=== PATIENT | female | born 1945 | race Caucasian/White ===

== ENCOUNTER → 2017-01-02 | Outpatient (CLI) | payer OTHER ==
--- NOTE | 2017-01-02 14:34 | MAMMOGRAPHY REPORT ---
BILATERAL DIGITAL SCREENING MAMMOGRAM WITH CAD: 01/02/2017 CLINICAL HISTORY: Routine screening. Patient has no complaints. TECHNIQUE: Current study was also evaluated with a Computer Aided Detection (CAD) system. Bilateral CC and MLO views were obtained. COMPARISON: Comparison is made to exams dated: 12/04/2015 mammogram, 11/23/2014 mammogram, 10/13/2013 ma mmogram, 07/27/2012 mammogram, 07/16/2010 mammogram - [facility], and 08/27/2007. BREAST COMPOSITION: The tissue of both breasts is heterogeneously dense, which may obscure small mas ses. FINDINGS: No suspicious masses, calcifications, or areas of architectural distortion are noted in ei ther breast. There has been no significant interval change compared to prior exams. IMPRESSION: ACR BI-RADS CATEGORY 1: NEGATIVE There is no mammographic evidence of malignancy. A 1 year screening mammogram is recommended. The pa tient will receive written notification of the results. Approximately 10% of breast cancers are not detected with mammography. A negative mammographic report should not delay biopsy if a clinically suggestive mass is present. Michelle Escobedo M.D. /:01/02/2017 07:47:27 Printed Circuit Photographer: Ana VINCENT(Samantha)(Sindi), [facility] letter sent: Normal 1/2 BI-RADS Code: ACR BI-RADS Category 1: Negative
== END | disposition home or self-care (01) ==
LOC: C.MAMM 07:26
PROVIDERS: ATTEND Family Medicine
DX: Z12.31 Encounter for screening mammogram for malignant neoplasm of breast (principal)

== ENCOUNTER 2024-05-02 20:18 | Inpatient (IN) ==
--- OUTSIDE RECORDS SUMMARY | 2024-05-02 20:21 | External Medical Summary | Summary of Care ---
Author Name Unknown Organization [facility] Address [address] [place] [address] Phone [phone] Care Team Providers Care Shank Breaker Name Role Phone Sander Smith DO Primary Care Provider Encounter Details Date Type Department Care Team (Late st Contact Info) Description 03/31/2024 Population Health External Data Unspecified Department Allergies Active Allergy Reactions Criticality Noted Date Comments Cat Dander 04/30/2017 No Known Drug Allergy 09/23/2001 documented as of this encounter (statuses as of 03/31/2024) Medications loratadine (CLARITIN) 10 MG TabletIndicatio ns:Other seasonal allergic rhinitis Take 1 Tablet by mouth in the morning. 30 Tab 5 5 Active Levothyroxine Sodium 100 MCG Oral Tablet (Levoxyl) Take 1 Tablet by mouth in the morning. (at least 30 min prior to breakfast or other meds). 90 Tablet 3 4 Active Warfarin Sodium 4 MG Oral Tablet TAKE 1 OR 2 TABLETS BY MOUTH DAILY OR DIRECTED BY COUMADIN CLINIC 180 Tablet 1 4 Active documented as of this encounter (statuses as of 03/31/2024) Active Problems Problem Noted Date Diagnosed Date Warfarin anticoagulation 10/24/2014 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 d 10/24/2014 Other seasonal allergic rhinitis 10/24/2014 History of CVA (cerebrovascular accident) 2014 Mural thrombus of heart without LA 02/18/2012 Anticoagulation management encounter 09/23/2001 Allergic rhinitis 02/02/2001 Aphasia, post-stroke 01/05/2001 documented as of this encounter (statuses as of 03/31/2024) Resolved Problems Problem Noted Date Diagnosed Date Resolved Date HTN, goal below 140/90 09/15/202309/14 Old LA (myocardial infarction) 08/29/2020 08/29/2020 Encounter for examination fo r normal comparison and control in clinical research program 06/09/2018 10/11/2019 Overview (06/26/2020): DO NOT DELETE [employer] DETECT Study: Project # [id number], Associate Dentist: Espinoza Villatoro, PhD. SUMMARY: Goal: Establish test characteristics (sensitivity, specificity, PPV, NPV) of a circulating tumor DNA (ctDNA)-based test for cancer. Hypothesis: Circulating tumor DNA (ctDNA) and elevated protein biomarkers (together, the marker panel) can be detected in asymptomatic individuals with early cancer. Specific Aim 1: Determine the prevalence of a positive marker panel test in a prospective clinical cohort of 10,000 asymptomatic women ages 65 to 75 years. Specific Aim 2: Determine the sensitivity, specificity, positive predictive value (PPV) and negative predictive value (NPV) of a marker panel test to identify histologically proven cancers that develop within 5-years of the marker panel evaluation. CONTACTS: During normal business hours, contact study staff at ; after hours Associate Dentist via the [facility] paper products machine operator . Please contact study team before resolving/deleting from patients problem list. Study phone number: [phone]. Diagnosis changed due to Research Module. Go to Snapshot for study details. Encounter for examination fo r normal comparison and control in clinical research program 06/09/2018 11/08/2021 Overview (06/26/2020): DO NOT DELETE - [employer] DETECT Study: Project # [id number], Associate Dentist: Kosta Valdovinos, MS, MPH. SUMMARY: Goal: Establish test characteristics (sensitivity, specificity, PPV, NPV) of a circulating tumor DNA (ctDNA)-based test for cancer. - Hypothesis: Circulating tumor DNA (ctDNA) and elevated protein biomarkers (together, the marker panel) can be detected in asymptomatic individuals with early cancer. - Specific Aim 1: Determine the prevalence of a positive marker panel test in a prospective clinical cohort of 10,000 asymptomatic women ages 65 to 75 years. - Specific Aim 2: Determine the sensitivity, specificity, positive predictive value (PPV) and negative predictive value (NPV) of a marker panel test to identify histologically proven cancers that develop within 5-years of the marker panel evaluation. - CONTACTS: During normal business hours, contact study staff at ; after hours Associate Dentist via the [facility] paper products machine operator . - Please contact study team before resolving/deleting from patients problem list. Study phone number: [phone]. Diagnosis changed due to Research Module. Go to Snapshot for study details. 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 01/05/2001 10/24/2014 Overview (12/09/2016): ICD-10 update of inactive term CVA 10/24/2014 HYPOTHYROIDISM NOS 5 documented as of this encounter (statuses as of 03/31/2024) Immunizations Name Administration Dates Next Due COVID-19 mRNA, LNP-s, No Pre serve, 2-Dose Series (Moderna) 01/26/2021,06/12/2020,05/15/2020 COVID-19, mRNA, LNP-s, PF, B ooster, 100mcg/0.5mg (Moderna) 10/04/2021 Covid-19, Mrna, Lnp-s, Pf, B ivalent, 30 Mcg, IM, 12 yrs and above (Pfizer) 12/17/2021 Diptheria/Tetanus (Adult) 03/10/2004 PPD 12/11/2022 Pneumococcal Conjugate Vacc, 13 Valent (Prevnar) 10/24/2014 Pneumococcal Conjugate Vacci ne, 20-valent ([id number]) 09/13/2022 Season Influenza, Quad, PF, Adjuvanted, 65+ Yrs, IM (FLUAD) 01/11/2021,01/17/2020 Seasonal Influenza Vac., MDV , IM, 0.5 mL (Fluzone) 02/07/2014,12/31/2012,12/19/2011,2008 Seasonal Influenza, High Dos e, Trivalent, PF, IM (Fluzone HD) 01/20/2024 Seasonal Influenza, PF, 6 M & above, IM , (FluLaval or Fluzone) 02/23/2018,02/06/2017 Seasonal Influenza, Quadriva lent Hd (Fluzone Hd) 01/19/2023,12/17/2021 Seasonal Influenza, Quadriva lent, No Preserve, IM 01/25/2016,01/23/2015 TDAP (age 10 and older)(Boostrix) 09/15/2023 TDAP, Age 7 and older, IM (Adacel) 09/20/2010 Zoster Vaccine Recombinant (Shingrix) 12/26/2020 ,10/11/2020 documented as of this encounter Social History Tobacco Use Types Packs/Day Years Used Date Smoking Tobacco: Never Smokeless Tobacco: Never Alcohol Use Standard Drinks/Week Comments No 0 (1 standard drink = 0.6 oz pur e alcohol) rare PHQ-2 Answer Date Recorded PHQ-2 Score 0 04/06/2019 Hunger Vital Sign Answer Date Recorded Within the past 12 months, y ou worried that your food would run out before you got the money to buy more. Never true 09/12/19 22 Within the past 12 months, t he food you bought just didn't last and you didn't have money to get more. 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 on file Not on file Not on f ile documented as of this encounter Plan of Treatment Upcoming Encounters Date Type Department Care Team (Late st Contact Info) Description 04/19/2024 11:10 AM EST Laboratory Laboratory [facility] [place] [address] [place] [address] [facility] [address] [facility] [place] [address] 04/20/2024 6:15 AM EST Anticoagulation Centralized Clinical Pharmacy Services, Denise Palomarse [address] [place] [address] [place] [address] [facility], [address] [place] [address] 09/15/2024 1:00 PM EDT Office Visit Family Practice [facility] [place] [address] [place] [address] Sander Smith, [address] [facility] [place] [address] Health Maintenance Due Date Last Done Comments Adult Wellness Visit 2012 DXA Scan 04/24/2018 04/24/2016, 07/09, 08/04/2012 Depression Screening 04/06/2020 04/06/2019 COVID-19 Vaccine ( season) 2023 12/17/2021, 10/04/2021, 01/26/2021, Additional history exists TSH 02/22/2025 02/23/2024, 12/09, 12/01/2023, Additional history exists DTap/Tdap Vaccines (3 - Td or Tdap) 09/14/2033 09/15/2023, 09/20/2010, 03/10/2004 Zoster Vaccines Completed 12/26/2020, 10/11/2020 Cologuard Discontinued 10/02/2021, 09/07, 09/25/2021, Additional history exists Colorectal Cancer Screening Discontinued Pneumococcal Vaccine: 50+ Years Completed 09/13/2022, 10/24/2014, 02/02/2001 Influenza Vaccine (FLU shot) Completed 01/20/2024, 01/20/2024, 01/19/2023, Additional history exists Colonoscopy Discontinued Fecal Occult Blood Test Discontinued HPV (Gardasil) Vaccine Aged Out No lo nger eligible based on patient's age to complete this topic Hepatitis B Vaccine Aged Out No longe r eligible based on patient's age to complete this topic MENINGOCOCCAL (MENACTRA/MENVEO) Aged Out No longer eligible based on patient's age to complete this topic Sigmoidoscopy Discontinued documented as of this encounter Medical Devices Not on filedocumented as of this encounter Care Teams Shank Breaker Relationship Specialty Start Date End Date Sander Smith DO [address] [place] [address] PCP - General Family Medicine 05/04/18 documented as of this encounter
--- OUTSIDE RECORDS SUMMARY | 2024-05-02 20:21 | External Medical Summary | Summary of Care ---
Author Name Unknown Organization [facility] Address [address] [facility] [place] [address] Phone [phone] Care Team Providers Care Shale Planer Operator Helper Name Role Phone Sander Smith DO Primary Care Provider [phone] Reason for Visit * Reason Comments Dosage Adjustment Via Phone (anticoag Cl inic) Encounter Details Date Type Department Care Team ([facility] st Contact Info) Description 03/23/2024 6:15 AM EST Anticoagulation Centralized Clinical Pharmacy Services, Denise Palomares [address] [place] [address] [place] [address] [facility], [address] [place] [address] History of CVA (cerebrovascular accident)*; Warfarin anticoagulation; Anticoagulation management encounter Allergies Active Allergy Reactions Criticality Noted Date Comments Cat Dander 04/30/2017 No Known Drug Allergy 09/23/2001 documented as of this encounter (statuses as of 03/23/2024) Medications loratadine (CLARITIN) 10 MG TabletIndicatio ns:Other [...] as of this encounter (statuses as of 03/23/2024) Active Problems Problem Noted Date Diagnosed Date Warfarin anticoagulation 10/24/2014 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 d 10/24/2014 Other seasonal allergic rhinitis 10/24/2014 History of CVA (cerebrovascular accident) 2014 Mural thrombus of heart without NV 02/18/2012 Anticoagulation management encounter 09/23/2001 Allergic rhinitis 02/02/2001 Aphasia, post-stroke 01/05/2001 documented as of this encounter (statuses as of 03/23/2024) Resolved Problems Problem Noted Date Diagnosed Date Resolved Date HTN, goal below 140/90 09/15/202309/14 Old NV (myocardial infarction) 08/29/2020 08/29/2020 Encounter for examination fo r normal comparison and control in clinical research program 06/09/2018 10/11/2019 Overview (06/26/2020): DO NOT DELETE [facility] DETECT Study: Project # [id number], Cake Former: Espinoza Villatoro, PhD. SUMMARY: Goal: Establish test [...] contact study staff at ; after hours Cake Former via the [facility] hospital paper roll machine operator . Please contact study team before resolving/deleting from patients problem list. Study phone number: [phone]. Diagnosis changed due to Research Module. Go to Snapshot for study details. Encounter for examination fo r normal comparison and control in clinical research program 06/09/2018 11/08/2021 Overview (06/26/2020): DO NOT DELETE - [employer] DETECT Study: Project # [id number], Cake Former: Kosta Valdovinos, MS, MPH. SUMMARY: Goal: Establish [...] contact study staff at ; after hours Cake Former via the [facility] hospital paper roll machine operator . - Please contact study team before resolving/deleting from patients problem list. Study phone number: [phone]. Diagnosis changed due to Research Module. Go to Snapshot for study details. 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 current use of ant icoagulant therapy 01/05/2001 10/24/2014 Overview (12/09/2016): ICD-10 update of inactive term CVA 10/24/2014 HYPOTHYROIDISM NOS 5 documented as of this encounter (statuses as of 03/23/2024) Immunizations Name Administration Dates Next Due COVID-19 mRNA, LNP-s, No Pre serve, 2-Dose Series (Moderna) 01/26/2021,06/12/2020,05/15/2020 COVID-19, mRNA, LNP-s, PF, B ooster, 100mcg/0.5mg (Moderna) 10/04/2021 Covid-19, Mrna, Lnp-s, Pf, B ivalent, 30 Mcg, IM, 12 yrs and above (Pfizer) 12/17/2021 Diptheria/Tetanus (Adult) 03/10/2004 PPD 12/11/2022 Pneumococcal Conjugate Vacc, 13 Valent (Prevnar) 10/24/2014 Pneumococcal Conjugate Vacci ne, 20-valent ([id number]) 09/13/2022 Season Influenza, Quad, PF, Adjuvanted, 65+ [...] 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 PT/INR results, Coumadin dose instructions, and next PT/INR date communicated as noted by Pharmacist: Yes ROBERTA SMITH CPhT 03/23/2024, 9:42 AM * Debbi Pierre, [facility] - 03/23/2024 9:34 AM EST Images from the original note were not included. Coumadin Clinic (region specific) Objective Current Warfarin Dose As of 03/23/2024 Warfarin maintenance plan: 2 mg (4 mg x 0.5) every Fri; 4 mg (4 mg x 1) all other days INR Result As of 03/23/2024 INR goal: 2.0-3.0 INR used for dosin.7 (03/22/2024) Assessment & Plan Warfarin Plan As of 03/23/2024 Full warfarin instructions: 03/23: 8 mg; Otherwise 2 mg every Fri; 4 mg all other days Next INR check: 04/19/2024 Repeat PT/INR in 4 week(s) Weekly dose: not changed Additional Dosing Information: Description Jami Hartman 4 wk max INR check Tech to contact patient with dose instructions as noted. Debbi Pierre RPh 03/23/2024, 9:34 AM documented in this encounter Plan of Treatment Upcoming Encounters Date Type Department Care Team (Late st Contact Info) Description 09/15/2024 1:00 PM EDT Office Visit Family Practice [place] [place] [address] [facility] [place] [address] Sander Smith DO [address] [place] [address] Health Maintenance Due Date Last Done Comments [...] Not on filedocumented as of this encounter Visit Diagnoses Diagnosis History of CVA (cerebrovascular accident)- Primary Transient ischemic attack (TIA), and cerebral infarction without residual deficits Warfarin anticoagulation Long-term (current) use of anticoagulants Anticoagulation management encounter Encounter for therapeutic drug monitoring documented in this encounter Care Teams Shale Planer Operator Helper Relationship Specialty Start Date End Date Sander Smith DO [address] [place] [address] PCP - General Family Medicine 05/04/18 documented as of this encounter
--- OUTSIDE RECORDS SUMMARY | 2024-05-02 20:21 | External Medical Summary | Summary of Care ---
Author Name Unknown Organization [facility] Address [address] [place] [address] Phone [phone] Care Team Providers Care Postal Inspector Name Role Phone Sander Smith DO Primary Care Provider Reason for Visit * Reason Onset Date Comments Advice 04/27/2024 Encounter Details Date Type Department Care Team (Late st Contact Info) Description 04/27/2024 Telephone Family Practice [facility] [place] [address] [facility] [place] [address] Sander Smith DO [address] [facility] [place] [address] Advice Allergies Active Allergy Reactions Criticality Noted Date Comments Cat Dander 04/30/2017 No Known Drug Allergy 09/23/2001 documented as of this encounter (statuses as of 04/30/2024) Medications loratadine (CLARITIN) 10 MG TabletIndicatio ns:Other [...] as of this encounter (statuses as of 04/30/2024) Active Problems Problem Noted Date Diagnosed Date Warfarin anticoagulation 10/24/2014 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 d 10/24/2014 Other seasonal allergic rhinitis 10/24/2014 History of CVA (cerebrovascular accident) 2014 Mural thrombus of heart without [place] 02/18/2012 Anticoagulation management encounter 09/23/2001 Allergic rhinitis 02/02/2001 Aphasia, post-stroke 01/05/2001 documented as of this encounter (statuses as of 04/30/2024) Resolved Problems Problem Noted Date Diagnosed Date Resolved Date HTN, goal below 140/90 09/15/202309/14 Old AK (myocardial infarction) 08/29/2020 08/29/2020 Encounter for examination fo r normal comparison and control in clinical research program 06/09/2018 10/11/2019 Overview (06/26/2020): DO NOT DELETE [employer] DETECT Study: Project # [id number], Steam Shovel Operating Engineer: Espinoza Villatoro, PhD. SUMMARY: Goal: Establish test [...] contact study staff at ; after hours Steam Shovel Operating Engineer via the [facility] hospital automatic profile sander operator . Please contact study team before resolving/deleting from patients problem list. Study phone number: [phone]. Diagnosis changed due to Research Module. Go to Snapshot for study details. Encounter for examination fo r normal comparison and control in clinical research program 06/09/2018 11/08/2021 Overview (06/26/2020): DO NOT DELETE - [employer] DETECT Study: Project # [id number], Steam Shovel Operating Engineer: Kosta Valdovinos, MS, MPH. SUMMARY: Goal: Establish [...] contact study staff at ; after hours Steam Shovel Operating Engineer via the [facility] hospital automatic profile sander operator . - Please contact study team before resolving/deleting from patients problem list. Study phone number: [phone]. Diagnosis changed due to Research Module. Go to Snapshot for study details. 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 icoagulant therapy 01/05/2001 10/24/2014 Overview (12/09/2016): ICD-10 update of inactive term CVA 10/24/2014 HYPOTHYROIDISM NOS 5 documented as of this encounter (statuses as of 04/30/2024) Immunizations Name Administration Dates Next Due COVID-19 mRNA, LNP-s, No Pre serve, 2-Dose Series (Moderna) 01/26/2021,06/12/2020,05/15/2020 COVID-19, mRNA, LNP-s, PF, B ooster, 100mcg/0.5mg (Moderna) 10/04/2021 Covid-19, Mrna, Lnp-s, Pf, B ivalent, 30 Mcg, IM, 12 yrs and above (Pfizer) 12/17/2021 Diptheria/Tetanus (Adult) 03/10/2004 PPD 12/11/2022 Pneumococcal Conjugate Vacc, 13 Valent (Prevnar) 10/24/2014 Pneumococcal Conjugate Vacci ne, 20-valent ([id number]) 09/13/2022 Season Influenza, Quad, PF, Adjuvanted, 65+ [...] 8:23 AM EDT Sexual Orientation Straight 09/11/2021 8 :23 AM EDT 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 Diarrhea has improved. Has only had one bout of liquid diarrhea today. Has not takenany OTC medications for the diarrhea. Pt states she is drinking fluids and staying hydrated. Not eating much. Reviewed bratty diet with pt and encouraged to continue to stay hydrated. Pt states she is very weak and unsteady on her feet. Took tylenol cold and flu the first week of flu symptoms due to having a fever. Continues to take robitussin for cough. Pt states her eyes are crusty and seeping drainage. Encouraged pt to schedule appointment. Pt states she is unable to leave her home at this time due to the diarrhea. States her son is coming tomorrow and she will decide at that time if she is going to be seen. * Telephone Encounter - Tiara Vargas OSA - 04/27/2024 10:31 AM EST Pt calling in for advice. Pt had the flu for 3 weeks, she now has uncontrollable diarrhea. Pt cannot come in for appointment and wants to know what dr would recommend. documented in this encounter Plan of Treatment Upcoming Encounters Date Type Department Care Team (Late st Contact Info) Description 05/07/2024 6:15 AM EST Anticoagulation Centralized Clinical Pharmacy Services, Denise Palomares [address] [place] [address] [place] [address] C[facility], [facility] [address] [place] [address] 09/15/2024 1:00 PM EDT Office Visit Family Practice [place] [address] [facility] [place] [address] Sander Smith DO [address] [facility] [place] [address] Health Maintenance Due Date Last Done Comments [...] on patient's age to complete this topic Meningitis B Vaccine (Bexsero/Trumemba) Aged Out No longer eligible based on patient's age to complete this topic Sigmoidoscopy Discontinued documented as of this encounter Medical Devices Not on filedocumented as of this encounter Care Teams Postal Inspector Relationship Specialty Start Date End Date Sander Smith DO [address] [place] [address] PCP - General Family Medicine 05/04/18 documented as of this encounter
--- OUTSIDE RECORDS SUMMARY | 2024-05-02 20:22 | External Medical Summary | Summary of Care ---
Author Name Unknown Organization [facility] Address [address] [place] [address] Phone [phone] Care Team Providers Care Bale Piler Name Role Phone Alisson Rivero DO Primary Care Provider [phone] Reason for Visit * Reason Comments eRx-Medication Refill Encounter Details Date Type Department Care Team (Late st Contact Info) Description 12/07/2023 Refill Family Practice [facility] [address] [place] [address] Alisson Rivero DO [address] [place] [address] Allergies Active Allergy Reactions Criticality Noted Date Comments Cat Dander 04/30/2017 No Known Drug Allergy 09/23/2001 documented as of this encounter (statuses as of 12/09/2023) Medications Medication Sig Dispensed Refills Start Date End Date Status loratadine (CLARITIN) 10 MG TabletIndication s:Other seasonal allergic rhinitis Take 1 Tablet by mouth in the morning. 30 Tab 5 10/24/2014 Active Levothyroxine Sodium 88 MCG Oral Tablet (Levoxyl) Take 1 Tablet by mouth in the morning. (at least 30 min prior to breakfast or other meds). 90 Tablet 3 10/08/2023 Active Warfarin Sodium 4 MG Oral Tablet (Coumadin) TAKE 1 OR 2 TABLETS BY MOUTH DAILY OR DIRECTED BY COUMADIN CLINIC 180 Tablet 1 12/09/2023 Active Warfarin Sodium 4 MG Oral Tablet Take 1 to 2 tablets by mouth daily as directed by Coumadin Clinic on phone. 180 Tablet 1 01/10/2023 Discontinued documented as of this encounter (statuses as of 12/09/2023) Active Problems Problem Noted Date Diagnosed Date Warfarin anticoagulation 10/24/2014 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 d 10/24/2014 Other seasonal allergic rhinitis 10/24/2014 History of CVA (cerebrovascular accident) 2014 Mural thrombus of heart without [place] 02/18/2012 Anticoagulation management encounter 09/23/2001 Allergic rhinitis 02/02/2001 Aphasia, post-stroke 01/05/2001 documented as of this encounter (statuses as of 12/09/2023) Resolved Problems Problem Noted Date Diagnosed Date Resolved Date HTN, goal below 140/90 09/15/202309/14 Old [facility] (myocardial infarction) 08/29/2020 08/29/2020 Encounter for examination fo r normal comparison and control in clinical research program 06/09/2018 10/11/2019 Overview: DO NOT DELETE [facility] DETECT Study: Project # [id number], University Registrar: Espinoza Villatoro, PhD. SUMMARY: Goal: Establish test [...] contact study staff at ; after hours University Registrar via the [facility] hospital crowning hammer operator . Please contact study team before resolving/deleting from patients problem list. Study phone number: [phone]. Diagnosis changed due to Research Module. Go to Snapshot for study details. Encounter for examination fo r normal comparison and control in clinical research program 06/09/2018 11/08/2021 Overview: [facility] DELETE [facility] Study: Project # [id number], University Registrar: Kosta Valdovinos, MS, MPH. SUMMARY: Goal: Establish [...] contact study staff at ; after hours University Registrar via the [facility] hospital crowning hammer operator . - Please contact study team before resolving/deleting from patients problem list. Study phone number: [phone]. Diagnosis changed due to Research Module. Go to Snapshot for study details. 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 02/16/2003 10/24/2014 Overview: ICD-10 update of inactive term ABN THYROID FUNCT STUDY 05/05/200105/2001 Asthma, allergic 02/02/2001 10/24/2014 penitentiary current use of ant icoagulant therapy 01/05/2001 10/24/2014 Overview: ICD-10 update of inactive term CVA 10/24/2014 HYPOTHYROIDISM NOS 5 documented as of this encounter (statuses as of 12/09/2023) Immunizations Name Administration Dates Next Due COVID-19 mRNA, LNP-s, No Pre serve, 2-Dose Series (Moderna) 01/26/2021,06/12/2020,05/15/2020 COVID-19, mRNA, LNP-s, PF, B ooster, 100mcg/0.5mg (Moderna) 10/04/2021 Covid-19, Mrna, Lnp-s, Pf, B ivalent, 30 Mcg, IM, 12 yrs and above (Pfizer) 12/17/2021 Diptheria/Tetanus (Adult) 03/10/2004 PPD 12/11/2022 Pneumococcal Conjugate Vacc, 13 Valent (Prevnar) 10/24/2014 Pneumococcal Conjugate Vacci ne, 20-valent ([id number]) 09/13/2022 Season Influenza, Quad, PF, Adjuvanted, 65+ Yrs, IM (FLUAD) 01/11/2021,01/17/2020 Seasonal Influenza, PF, 6 M & above, IM , (FluLaval or Fluzone) 02/23/2018,02/06/2017 Seasonal Influenza, Quadriva lent Hd (Fluzone Hd) 01/19/2023,12/17/2021 Seasonal Influenza, Quadriva lent, No Preserve, IM 01/25/2016,01/23/2015 Seasonal Influenza, Trivalen t, (IIV3), with Preserv, (Fluzone) 02/07/2014,12/31/2012,12/19/2011,2008 TDAP (age 10 and older)(Boostrix) 09/15/2023 TDAP, [...] money to get more. Never true 09/11/2021 Sex and Gender Information Value Date Recorded Sex Assigned at Female 09/11/2021 8:23 AM EDT Gender Identity Female 09/11/2021 8:23 AM EDT Sexual Orientation Straight 09/11/2021 8: 23 AM EDT Job Start Date Occupation Industry Not on file Not on file Not on file documented as of this encounter Miscellaneous Notes * Telephone Encounter - Ailyn Judge luis - 12/09/2023 10:00 AM EDTSigned Prescriptions: Disp Refills Warfarin Sodium 4 MG Oral Tablet (Coumadin)180 Ta*1 Sig: TAKE 1 OR 2 TABLETS BY MOUTH DAILY OR DIRECTED BY COUMADIN CLINICAuthorizing Provider: ALISSON RIVERO User: AILYN JUDGE documented in this encounter Plan of Treatment Upcoming Encounters Date Type Department Care Team (Late st Contact Info) Description 12/29/2023 11:10 AM EDT Laboratory Laboratory [place] [address] [facility] [place] [id number] Aaron Hartman [place] [address] [place] [address] 12/30/2023 6:15 AM EDT Anticoagulation [facility], Denise Plaomares [address] [place] [address] [place] [address] [place] [address] 09/15/2024 1:00 PM EDT Office Visit Family Practice [place] [address] [place] [address] Alisson Rivero DO [address] [place] [address] Health Maintenance Due Date Last Done Comments Adult Wellness Visit 2012 DXA Scan 04/24/2018 04/24/2016, 07/09, 08/04/2012 Depression Screening 04/06/2020 04/06/2019 COVID-19 Vaccine ( season) 2023 12/17/2021, 10/04/2021, 01/26/2021, Additional history exists Influenza Vaccine (FLU shot) (#1) 2023 01/19/2023, 12/17/2021, 01/11/2021, Additional history exists TSH 11/30/2024 12/01/2023, 09/08, 11/18/2022, Additional history exists DTap/Tdap Vaccines (3 - Td or Tdap) 09/14/2033 09/15/2023, 09/20/2010, 03/10/2004 Zoster Vaccines Completed 12/26/2020, 10/11/2020 Cologuard Discontinued 10/02/2021, 09/07, 09/25/2021, Additional history exists Colorectal Cancer Screening Discontinued Pneumococcal Vaccine: 65+ Years Completed 09/13/2022, 10/24/2014, 02/02/2001 Colonoscopy Discontinued Fecal Occult Blood Test Discontinued [...] filedocumented as of this encounter Care Teams Bale Piler Relationship Specialty Start Date End Date Alisson Rivero DO [address] [place] [address] PCP - General Family Medicine 05/04/18 documented as of this encounter
--- OUTSIDE RECORDS SUMMARY | 2024-05-02 20:22 | External Medical Summary | Summary of Care ---
Author Name Unknown Organization [facility] Address [address] [place] [address] Phone [phone] Care Team Providers Care Landscape Supervisor Name Role Phone Sander Smith DO Primary Care Provider Reason for Visit * Reason Onset Date Comments Medication Administration 01/20/2024 Flu an d/or Pneumo Inj Encounter Details Date Type Department Care Team (Late st Contact Info) Description 01/20/2024 11:00 AM EST Immunization [facility] [address] [place] [address] Sp, [facility] [address] [place] [address] Need for prophylactic vaccination and inoculation against influenza* Allergies Active Allergy Reactions Criticality Noted Date Comments Cat Dander 04/30/2017 No Known Drug Allergy 09/23/2001 documented as of this encounter (statuses as of 01/20/2024) Medications loratadine (CLARITIN) 10 MG TabletIndicatio ns:Other seasonal allergic rhinitis Take 1 Tablet by mouth in the morning. 30 Tab 5 5 Active Warfarin Sodium 4 MG Oral Tablet (Coumadin) TAKE 1 OR 2 TABLETS BY MOUTH DAILY OR DIRECTED BY COUMADIN CLINIC 180 Tablet 1 4 Active Levothyroxine Sodium 100 MCG Oral Tablet (Levoxyl) Take 1 Tablet by mouth in the morning. (at least 30 min prior to breakfast or other meds). 90 Tablet 3 4 Active documented as of this encounter (statuses as of 01/20/2024) Active Problems Problem Noted Date Diagnosed Date Warfarin anticoagulation 10/24/2014 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 d 10/24/2014 Other seasonal allergic rhinitis 10/24/2014 History of CVA (cerebrovascular accident) 2014 Mural thrombus of heart without [place] 02/18/2012 Anticoagulation management encounter 09/23/2001 Allergic rhinitis 02/02/2001 Aphasia, post-stroke 01/05/2001 documented as of this encounter (statuses as of 01/20/2024) Resolved Problems Problem Noted Date Diagnosed Date Resolved Date HTN, goal below 140/90 09/15/202309/14 Old [place] (myocardial infarction) 08/29/2020 08/29/2020 Encounter for examination fo r normal comparison and control in clinical research program 06/09/2018 10/11/2019 Overview (06/26/2020): DO NOT DELETE [facility] DETECT Study: Project # [id number], Language Path: Espinoza Villatoro, PhD. SUMMARY: Goal: Establish test [...] contact study staff at ; after hours Language Path via the [facility] hospital change number operator . Please contact study team before resolving/deleting from patients problem list. Study phone number: [phone]. Diagnosis changed due to Research Module. Go to Snapshot for study details. Encounter for examination fo r normal comparison and control in clinical research program 06/09/2018 11/08/2021 Overview (06/26/2020): DO NOT DELETE - [facility] DETECT Study: Project # [id number], Language Path: Kosta Valdovinos, MS, MPH. SUMMARY: Goal: Establish [...] contact study staff at ; after hours Language Path via the [facility] hospital change number operator . - Please contact study team before resolving/deleting from patients problem list. Study phone number: [phone]. Diagnosis changed due to Research Module. Go to Snapshot for study details. 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 icoagulant therapy 02/16/2003 10/24/2014 Overview (12/09/2016): ICD-10 update of inactive term ABN THYROID FUNCT STUDY 05/05/200105/2001 Asthma, allergic 02/02/2001 10/24/2014 [facility] current use of ant icoagulant therapy 01/05/2001 10/24/2014 Overview (12/09/2016): ICD-10 update of inactive term CVA 10/24/2014 HYPOTHYROIDISM NOS 5 documented as of this encounter (statuses as of 01/20/2024) Immunizations Name Administration Dates Next Due COVID-19 mRNA, LNP-s, No Pre serve, 2-Dose Series (Moderna) 01/26/2021,06/12/2020,05/15/2020 COVID-19, mRNA, LNP-s, PF, B ooster, 100mcg/0.5mg (Moderna) 10/04/2021 Covid-19, Mrna, Lnp-s, Pf, B ivalent, 30 Mcg, IM, 12 yrs and above (Pfizer) 12/17/2021 Diptheria/Tetanus (Adult) 03/10/2004 PPD 12/11/2022 Pneumococcal Conjugate Vacc, 13 Valent (Prevnar) 10/24/2014 Pneumococcal Conjugate Vacci ne, 20-valent ([id number]) 09/13/2022 Season Influenza, Quad, PF, Adjuvanted, 65+ [...] Start Date 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 Not on file Not on file Not on f ile documented as of this encounter Plan of Treatment Upcoming Encounters Date Type Department Care Team (Late st Contact Info) Description 01/26/2024 11:10 AM EST Laboratory Laboratory [facility] [place] [address] [place] [phone] [facility] [address] [facility] [place] [address] 01/27/2024 6:15 AM EST Anticoagulation [facility], Denise Palomares [address] [place] [address] [place] [address] [facility], [address] [place] [address] 09/15/2024 1:00 PM EDT Office Visit Family Practice [facility] [place] [address] [place] [address] Sander Smith, DO [address] [facility] [place] [address] Health Maintenance Due Date Last Done Comments Adult Wellness Visit 2012 DXA Scan 04/24/2018 04/24/2016, 07/09, 08/04/2012 Depression Screening 04/06/2020 04/06/2019 COVID-19 Vaccine ( season) 2023 12/17/2021, 10/04/2021, 01/26/2021, Additional history exists Influenza Vaccine (FLU shot) (#1) 2023 01/20/2024, 01/19/2023, 12/17/2021, Additional history exists TSH 12/28/2024 12/29/2023, 11/09, 10/06/2023, Additional history exists DTap/Tdap Vaccines (3 - [...] as of this encounter Visit Diagnoses Diagnosis Need for prophylactic vaccination and inoculation against influenza- Primary documented in this encounter Care Teams Landscape Supervisor Relationship Specialty Start Date End Date Sander Smith DO [address] [place] [address] PCP - General Family Medicine 05/04/18 documented as of this encounter
--- OUTSIDE RECORDS SUMMARY | 2024-05-02 20:22 | External Medical Summary | Summary of Care ---
Author Name Unknown Organization [facility] Address [address] [place] [address] Phone [phone] Care Team Providers Care Drop Clipper Name Role Phone Sander Smith DO Primary Care Provider [phone] Reason for Visit * Reason Onset Date Comments Health Maintenance 11/19/2023 Encounter Details Date Type Department Care Team (Late st Contact Info) Description 11/19/2023 Telephone Family Practice [facility] [place] [address] [facility] [place] [address] Sander Smith DO [address] [place] [address] Health Maintenance Allergies Active Allergy Reactions Criticality Noted Date Comments Cat Dander 04/30/2017 No Known Drug Allergy 09/23/2001 documented as of this encounter (statuses as of 11/19/2023) Medications Medication Sig Dispensed Refills Start Date End Date Status loratadine (CLARITIN) 10 MG TabletIndications:O ther seasonal allergic rhinitis Take 1 Tablet by mouth in the morning. 30 Tab 5 10/24/2014 Active Warfarin Sodium 4 MG Oral Tablet Take 1 to 2 tablets by mouth daily as directed by Coumadin Clinic on phone. 180 Tablet 1 01/10/2023 Active Levothyroxine Sodium 88 MCG Oral Tablet (Levoxyl) Take 1 Tablet by mouth in the morning. (at least 30 min prior to breakfast or other meds). 90 Tablet 3 10/08/2023 Active documented as of this encounter (statuses as of 11/19/2023) Active Problems Problem Noted Date Diagnosed Date Warfarin anticoagulation 10/24/2014 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 d 10/24/2014 Other seasonal allergic rhinitis 10/24/2014 History of CVA (cerebrovascular accident) 2014 Mural thrombus of heart without [place] 02/18/2012 Anticoagulation management encounter 09/23/2001 Allergic rhinitis 02/02/2001 Aphasia, post-stroke 01/05/2001 documented as of this encounter (statuses as of 11/19/2023) Resolved Problems Problem Noted Date Diagnosed Date Resolved Date HTN, goal below 140/90 09/15/202309/14 Old [place] (myocardial infarction) 08/29/2020 08/29/2020 Encounter for examination fo r normal comparison and control in clinical research program 06/09/2018 10/11/2019 Overview: DO NOT DELETE [facility] DETECT Study: Project # [id number], Wire Stripping Machine Operator: Espinoza Villatoro, PhD. SUMMARY: Goal: Establish test [...] contact study staff at ; after hours Wire Stripping Machine Operator via the [facility] assembly operator . Please contact study team before resolving/deleting from patients problem list. Study phone number: [phone]. Diagnosis changed due to Research Module. Go to Snapshot for study details. Encounter for examination fo r normal comparison and control in clinical research program 06/09/2018 11/08/2021 Overview: [facility] NOT DELETE [facility] DET[facility] Study: Project # [id number], Wire Stripping Machine Operator: Kosta Valdovinos, MS, MPH. SUMMARY: Goal: Establish [...] contact study staff at ; after hours Wire Stripping Machine Operator via the [facility] hospital assembly operator . - Please contact study team before resolving/deleting from patients problem list. Study phone number: [phone]. Diagnosis changed due to Research Module. Go to Snapshot for study details. 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 01/05/2001 10/24/2014 Overview: ICD-10 update of inactive term CVA 10/24/2014 HYPOTHYROIDISM NOS 5 documented as of this encounter (statuses as of 11/19/2023) Immunizations Name Administration Dates Next Due COVID-19 mRNA, LNP-s, No Pre serve, 2-Dose Series (Moderna) 01/26/2021,06/12/2020,05/15/2020 COVID-19, mRNA, LNP-s, PF, B ooster, 100mcg/0.5mg (Moderna) 10/04/2021 Covid-19, Mrna, Lnp-s, Pf, B ivalent, 30 Mcg, IM, 12 yrs and above (Pfizer) 12/17/2021 Diptheria/Tetanus (Adult) 03/10/2004 PPD 12/11/2022 Pneumococcal Conjugate Vacc, 13 Valent (Prevnar) 10/24/2014 Pneumococcal Conjugate Vacci ne, 20-valent ([id number]) 09/13/2022 Season Influenza, Quad, PF, Adjuvanted, 65+ [...] encounter Miscellaneous Notes * Telephone Encounter - Negra Bond LPN - 11/19/2023 8:51 AM EDT Care Gaps Comprehensive Care Outreach Last Office/Telemedicine Visit: 09/15/2023 (in office), Visit date not found (telemedicine) Next Office Visit: 09/15/2024 Hemoglobin AIC Results: No results found for: "HEMOGLOBIN A1C" BP Readings from Last 1 Encounters: 09/15/23 142/78 Reviewed Health Maintenance below: Health Maintenance Topic Date Due Adult Wellness Visit Never done DXA Scan 04/24/2018 Depression Screening 04/06/2020 Influenza Vaccine (FLU shot) (1) 11/09/2023 COVID-19 Vaccine ( season) 2023 Awv declined Dexa declined Care Gap Outreach Action Taken: Spoke to patient documented in this encounter Plan of Treatment Upcoming Encounters Date Type Department Care Team (Late st Contact Info) Description 12/01/2023 11:10 AM EDT Laboratory Laboratory [place] [address] [facility] [place] [phone] [facility] [place] [address] 12/02/2023 6:15 AM EDT Anticoagulation [facility] Clinical Pharmacy Services, Denise Palomares [address] [place] [address] [place] [address] [facility], [address] [place] [address] 09/15/2024 1:00 PM EDT Office Visit Family Practice [place] [address] [place] [address] Sander Smith, DO [address] [facility] [place] [address] Health Maintenance Due Date Last Done Comments Adult Wellness Visit 2012 DXA Scan 04/24/2018 04/24/2016, 07/09, 08/04/2012 Depression Screening 04/06/2020 04/06/2019 COVID-19 Vaccine ( season) 2023 12/17/2021, 10/04/2021, 01/26/2021, Additional history exists Influenza Vaccine (FLU shot) (#1) 2023 01/19/2023, 12/17/2021, 01/11/2021, Additional history exists TSH 10/05/2024 10/06/2023, 11/08, 09/30/2022, Additional history exists DTap/Tdap Vaccines (3 - [...] filedocumented as of this encounter Care Teams Drop Clipper Relationship Specialty Start Date End Date Sander Smith DO [address] [place] [address] PCP - General Family Medicine 05/04/18 documented as of this encounter
--- OUTSIDE RECORDS SUMMARY | 2024-05-02 20:22 | External Medical Summary ---
Author Name Unknown Address Unknown Organization K09[facility] [place] [address] Laboratory Report Ordering Provider Test Date Status VARSHA DELUNA 12/01/2023 10:54:25 Final Standing order for pt/inr. < br/>Please draw pt/inr every 1 to 4 weeks as requested
Results to [facility]

Warfarin Therapy
INR: 2.0-3.0 conventional anticoagulation
INR: 2.5-3.5 high intensity anticoagulation Observation Date Value Abnormality Reference (Units ) Status PT 12/01/2023 10:54:25 20.4 Above high normal 11 .6-15.2 (seconds) Final INR 12/01/2023 10:54:25 1.7 Above high normal 0. 8-1.2 Final Performing Location [facility] [place] [address]
--- OUTSIDE RECORDS SUMMARY | 2024-05-02 20:22 | External Medical Summary | Summary of Care ---
Author Name Unknown Organization [facility] Address [address] [place] [address] Phone [phone] Care Team Providers Care Pcu Rn Name Role Phone Sander Smith DO Primary Care Provider [phone] Reason for Visit * Reason Comments Outpatient Testing Encounter Details Date Type Department Care Team (Late st Contact Info) Description 12/29/2023 11:10 AM EDT Laboratory Laboratory [facility] [address] [place] [address] [facility] Lab [address]en[address] [place] [address] History of CVA (cerebrovascular accident); 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d Allergies Active Allergy Reactions Criticality Noted Date Comments Cat Dander 04/30/2017 No Known Drug Allergy 09/23/2001 documented as of this encounter (statuses as of 12/29/2023) Medications Medication Sig Dispensed Refills Start Date [...] [facility] 180 Tablet 1 12/09/2023 Active documented as of this encounter (statuses as of 12/29/2023) Active Problems Problem Noted Date Diagnosed Date Warfarin anticoagulation 10/24/2014 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 d 10/24/2014 Other seasonal allergic rhinitis 10/24/2014 History of CVA (cerebrovascular accident) 2014 Mural thrombus of heart without [place] 02/18/2012 Anticoagulation management encounter 09/23/2001 Allergic rhinitis 02/02/2001 Aphasia, post-stroke 01/05/2001 documented as of this encounter (statuses as of 12/29/2023) Resolved Problems Problem Noted Date Diagnosed Date Resolved Date HTN, goal below 140/90 09/15/202309/14 Old [place] (myocardial infarction) 08/29/2020 08/29/2020 Encounter for examination fo r normal comparison and control in clinical research program 06/09/2018 10/11/2019 Overview: DO NOT DELETE [employer] DETECT Study: Project # [id number], Professional Model: Espinoza Villatoro, PhD. SUMMARY: Goal: Establish test [...] contact study staff at ; after hours Professional Model via the [facility] substation operator conversion . Please contact study team before resolving/deleting from patients problem list. Study phone number: [phone]. Diagnosis changed due to Research Module. Go to Snapshot for study details. Encounter for examination fo r normal comparison and control in clinical research program 06/09/2018 11/08/2021 Overview: DO NOT DELETE - [employer] DETECT Study: Project # [id number], Professional Model: Kosta Valdovinos, MS, MPH. SUMMARY: Goal: Establish [...] contact study staff at ; after hours Professional Model via the [facility] substation operator conversion . - Please contact study team before resolving/deleting from patients problem list. Study phone number: [phone]. Diagnosis changed due to Research Module. Go to Snapshot for study details. 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 01/05/2001 10/24/2014 Overview: ICD-10 update of inactive term CVA 10/24/2014 HYPOTHYROIDISM NOS 5 documented as of this encounter (statuses as of 12/29/2023) Immunizations Name Administration Dates Next Due COVID-19 mRNA, LNP-s, No Pre serve, 2-Dose Series (Moderna) 01/26/2021,06/12/2020,05/15/2020 COVID-19, mRNA, LNP-s, PF, B ooster, 100mcg/0.5mg (Moderna) 10/04/2021 Covid-19, Mrna, Lnp-s, Pf, B ivalent, 30 Mcg, IM, 12 yrs and above (Pfizer) 12/17/2021 Diptheria/Tetanus (Adult) 03/10/2004 PPD 12/11/2022 Pneumococcal Conjugate Vacc, 13 Valent (Prevnar) 10/24/2014 Pneumococcal Conjugate Vacci ne, 20-valent ([id number]) 09/13/2022 Season Influenza, Quad, PF, Adjuvanted, 65+ Yrs, IM (FLUAD) 01/11/2021,01/17/2020 Seasonal Influenza Vac., MDV , IM, 0.5 mL (Fluzone) 02/07/2014,12/31/2012,12/19/2011,2008 Seasonal Influenza, PF, 6 M & above, [...] on file documented as of this encounter Plan of Treatment Upcoming Encounters Date Type Department Care Team (Late st Contact Info) Description 12/30/2023 6:15 AM EDT Anticoagulation Centralized Clinical Pharmacy Services, Denise Palomares [address] [place] [address] [place] [address] [facility] [address] [place] [address] 09/15/2024 1:00 PM EDT Office Visit Family Practice [facility] [address] [place] [address] Sander Smith DO [address] [facility] [place] [address] Pending Results Name Type Priority Associated Diagnoses Date /Time PT INR Lab Routine History of CVA (cerebrovascular accident) 12/29/2023 11:20 AM EDT TSH WITH FREE T4 IF INDICATED Lab Routine 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d 12/29/2023 11:20 AM EDT Health Maintenance Due Date Last Done Comments [...] Visit Diagnoses Diagnosis History of CVA (cerebrovascular accident) Transient ischemic attack (TIA), and cerebral infarction without residual deficits 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d documented in this encounter Care Teams Pcu Rn Relationship Specialty Start Date End Date Sander Smith DO [address] [place] [address] PCP - General Family Medicine 05/04/18 documented as of this encounter
--- OUTSIDE RECORDS SUMMARY | 2024-05-02 20:22 | External Medical Summary ---
Author Name Unknown Address Unknown Organization K09:[facility] [address] [place] [address] Laboratory Report Ordering Provider Test Date Status VARSHA DELUNA 03/22/2024 11:09:50 Final Standing order for pt/inr. < br/>Please draw pt/inr every 1 to 4 weeks as requested
Results to [facility]

Warfarin Therapy
INR: 2.0-3.0 conventional anticoagulation
INR: 2.5-3.5 high intensity anticoagulation Observation Date Value Abnormality Reference (Units ) Status PT 03/22/2024 11:09:50 19.8 Above high normal 11 .6-15.2 (seconds) Final INR 03/22/2024 11:09:50 1.7 Above high normal 0. 8-1.2 Final Performing Location [facility] [address] [place] [address]
--- OUTSIDE RECORDS SUMMARY | 2024-05-02 20:22 | External Medical Summary | Summary of Care ---
Author Name Unknown Organization [facility] Address [address] [place] [address] Phone [phone] Care Team Providers Care Social Sciences Chair Name Role Phone Sander Smith DO Primary Care Provider Reason for Visit * Reason Comments Outpatient Testing Encounter Details Date Type Department Care Team (Late st Contact Info) Description 01/26/2024 11:10 AM EST Laboratory Laboratory [facility] [address] [place] [address] [facility] Lab Scenery [address] [place] [address] History of CVA (cerebrovascular accident) Allergies Active Allergy Reactions Criticality Noted Date Comments Cat Dander 04/30/2017 No Known Drug Allergy 09/23/2001 documented as of this encounter (statuses as of 01/26/2024) Medications loratadine (CLARITIN) 10 MG TabletIndicatio ns:Other [...] as of this encounter (statuses as of 01/26/2024) Active Problems Problem Noted Date Diagnosed Date Warfarin anticoagulation 10/24/2014 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 d 10/24/2014 Other seasonal allergic rhinitis 10/24/2014 History of CVA (cerebrovascular accident) 2014 Mural thrombus of heart without [place] 02/18/2012 Anticoagulation management encounter 09/23/2001 Allergic rhinitis 02/02/2001 Aphasia, post-stroke 01/05/2001 documented as of this encounter (statuses as of 01/26/2024) Resolved Problems Problem Noted Date Diagnosed Date Resolved Date HTN, goal below 140/90 09/15/202309/14 Old [place] (myocardial infarction) 08/29/2020 08/29/2020 Encounter for examination fo r normal comparison and control in clinical research program 06/09/2018 10/11/2019 Overview (06/26/2020): DO NOT DELETE [employer] DELICIA Study: Project # [id number], Test Inspection Engineer: Espinoza Villatoro, PhD. SUMMARY: Goal: Establish [...] contact study staff at ; after hours Test Inspection Engineer via the [facility] decay control operator . Please contact study team before resolving/deleting from patients problem list. Study phone number: [phone]. Diagnosis changed due to Research Module. Go to Snapshot for study details. Encounter for examination fo r normal comparison and control in clinical research program 06/09/2018 11/08/2021 Overview (06/26/2020): DO NOT DELETE - [employer] DETECT Study: Project # [id number], Test Inspection Engineer: Kosta Valdovinos, MS, MPH. SUMMARY: Goal: [...] contact study staff at ; after hours Test Inspection Engineer via the [facility] hospital decay control operator . - Please contact study team before resolving/deleting from patients problem list. Study phone number: [phone]. Diagnosis changed due to Research Module. Go to Snapshot for study details. 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 02/16/2003 10/24/2014 Overview (12/09/2016): ICD-10 update of inactive term ABN THYROID FUNCT STUDY 05/05/200105/2001 Asthma, allergic 02/02/2001 10/24/2014 halfway current use of ant icoagulant therapy 01/05/2001 10/24/2014 Overview (12/09/2016): ICD-10 update of inactive term CVA 10/24/2014 HYPOTHYROIDISM NOS 5 documented as of this encounter (statuses as of 01/26/2024) Immunizations Name Administration Dates Next Due COVID-19 mRNA, LNP-s, No Pre serve, 2-Dose Series (Moderna) 01/26/2021,06/12/2020,05/15/2020 COVID-19, mRNA, LNP-s, PF, B ooster, 100mcg/0.5mg (Moderna) 10/04/2021 Covid-19, Mrna, Lnp-s, Pf, B ivalent, 30 Mcg, IM, 12 yrs and above (Pfizer) 12/17/2021 Diptheria/Tetanus (Adult) 03/10/2004 PPD 12/11/2022 Pneumococcal Conjugate Vacc, 13 Valent (Prevnar) 10/24/2014 Pneumococcal Conjugate Vacci ne, 20-valent ([id number]) 09/13/2022 Season Influenza, Quad, PF, Adjuvanted, 65+ [...] 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 Not on file Not on file Not on f ile documented as of this encounter Plan of Treatment Upcoming Encounters Date Type Department Care Team (Late st Contact Info) Description 01/27/2024 6:15 AM EST Anticoagulation Centralized Clinical Pharmacy Services, Denise Palomares [address] [place] [address] [place] [address] [facility], [address] [place] [address] 09/15/2024 1:00 PM EDT Office Visit Family Practice [facility] [address] [facility] [place] [address] Sander Smith, DO [address] [place] [address] Pending Results Name Type Priority Associated Diagnoses Date /Time PT INR Lab Routine History of CVA (cerebrovascular accident) 01/26/2024 10:38 AM EST Health Maintenance Due Date Last Done Comments Adult Wellness Visit 2012 DXA Scan 04/24/2018 04/24/2016, 07/09, 08/04/2012 Depression Screening 04/06/2020 04/06/2019 COVID-19 Vaccine ( season) 2023 12/17/2021, 10/04/2021, 01/26/2021, Additional history exists TSH 12/28/2024 12/29/2023, 11/09, 10/06/2023, Additional history exists DTap/Tdap Vaccines (3 - Td or Tdap) 09/14/2033 09/15/2023, 09/20/2010, 03/10/2004 Zoster Vaccines Completed 12/26/2020, 10/11/2020 Cologuard Discontinued 10/02/2021, 09/07, 09/25/2021, Additional history exists Colorectal Cancer Screening Discontinued Pneumococcal Vaccine: 65+ Years Completed 09/13/2022, 10/24/2014, 02/02/2001 Influenza Vaccine (FLU shot) Completed 01/20/2024, 01/19/2023, 12/17/2021, Additional history exists Colonoscopy Discontinued Fecal Occult [...] (TIA), and cerebral infarction without residual deficits documented in this encounter Care Teams Social Sciences Chair Relationship Specialty Start Date End Date Sander Smith DO [address] [place] [address] PCP - General Family Medicine 05/04/18 documented as of this encounter
--- OUTSIDE RECORDS SUMMARY | 2024-05-02 20:22 | External Medical Summary ---
Author Name Unknown Address Unknown Organization K09[facility] [place] [address] Laboratory Report Ordering Provider Test Date Status VARSHA DELUNA 01/26/2024 10:38:49 Final Standing order for pt/inr. < br/>Please draw pt/inr every 1 to 4 weeks as requested
Results to [facility]

Warfarin Therapy
INR: 2.0-3.0 conventional anticoagulation
INR: 2.5-3.5 high intensity anticoagulation Observation Date Value Abnormality Reference (Units ) Status PT 01/26/2024 10:38:49 26.4 Above high normal 11 .6-15.2 (seconds) Final INR 01/26/2024 10:38:49 2.4 Above high normal 0. 8-1.2 Final Performing Location [facility] [address]
--- OUTSIDE RECORDS SUMMARY | 2024-05-02 20:22 | External Medical Summary | Summary of Care ---
Author Name Unknown Organization [facility] Address [address] [place] [address] Phone [phone] Care Team Providers Care Food Beverage Attendant Name Role Phone Sander Smith DO Primary Care Provider [phone] Encounter Details Date Type Department Care Team (Late st Contact Info) Description 01/02/2024 Telephone Family Practice [facility] [address] [place] [address] Sander Smith DO [address] [place] [address] Allergies Active Allergy Reactions Criticality Noted Date Comments Cat Dander 04/30/2017 No Known Drug Allergy 09/23/2001 documented as of this encounter (statuses as of 01/02/2024) Medications Medication Sig Dispensed Refills Start Date End Date Status loratadine (CLARITIN) 10 MG TabletIndication s:Other seasonal allergic rhinitis Take 1 Tablet by mouth in the morning. 30 Tab 5 10/24/2014 Active Warfarin Sodium 4 MG Oral Tablet (Coumadin) TAKE 1 OR 2 TABLETS BY MOUTH DAILY OR DIRECTED BY COUMADIN CLINIC 180 Tablet 1 12/09/2023 Active Levothyroxine Sodium 100 MCG Oral Tablet (Levoxyl) Take 1 Tablet by mouth in the morning. (at least 30 min prior to breakfast or other meds). 90 Tablet 3 01/02/2024 Active Levothyroxine Sodium 88 MCG Oral Tablet (Levoxyl) Take 1 Tablet by mouth in the morning. (at least 30 min prior to breakfast or other meds). 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 d 10/24/2014 Other seasonal allergic rhinitis 10/24/2014 History of CVA (cerebrovascular accident) 2014 Mural thrombus of heart without [place] 02/18/2012 Anticoagulation management encounter 09/23/2001 Allergic rhinitis 02/02/2001 Aphasia, post-stroke 01/05/2001 documented as of this encounter (statuses as of 01/02/2024) Resolved Problems Problem Noted Date Diagnosed Date Resolved Date HTN, goal below 140/90 09/15/202309/14 Old [place] (myocardial infarction) 08/29/2020 08/29/2020 Encounter for examination fo r normal comparison and control in clinical research program 06/09/2018 10/11/2019 Overview: DO NOT DELETE [facility] DETECT Study: Project # [id number], Ferryboat Operator: Espinoza Villatoro, PhD. SUMMARY: Goal: Establish [...] contact study staff at ; after hours Ferryboat Operator via the [facility] turret lathe set up operator . Please contact study team before resolving/deleting from patients problem list. Study phone number: [phone]. Diagnosis changed due to Research Module. Go to Snapshot for study details. Encounter for examination fo r normal comparison and control in clinical research program 06/09/2018 11/08/2021 Overview: DO NOT DELETE - [facility] DETECT Study: Project # [id number], Ferryboat Operator: Kosta Valdovinos, MS, MPH. SUMMARY: Goal: [...] contact study staff at ; after hours Ferryboat Operator via the [facility] hospital turret lathe set up operator . - Please contact study team before resolving/deleting from patients problem list. Study phone number: [phone]. Diagnosis changed due to Research Module. Go to Snapshot for study details. 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 therapy 01/05/2001 10/24/2014 Overview: ICD-10 update of inactive term CVA 10/24/2014 HYPOTHYROIDISM NOS 5 documented as of this encounter (statuses as of 01/02/2024) Immunizations Name Administration Dates Next Due COVID-19 mRNA, LNP-s, No Pre serve, 2-Dose Series (Moderna) 01/26/2021,06/12/2020,05/15/2020 COVID-19, mRNA, LNP-s, PF, B ooster, 100mcg/0.5mg (Moderna) 10/04/2021 Covid-19, Mrna, Lnp-s, Pf, B ivalent, 30 Mcg, IM, 12 yrs and above (Pfizer) 12/17/2021 Diptheria/Tetanus (Adult) 03/10/2004 PPD 12/11/2022 Pneumococcal Conjugate Vacc, 13 Valent (Prevnar) 10/24/2014 Pneumococcal Conjugate Vacci ne, 20-valent ([id number]) 09/13/2022 Season Influenza, Quad, PF, Adjuvanted, 65+ [...] Description 01/26/2024 11:10 AM EST Laboratory Laboratory [facility] [place] [address] [place] [address] [place], [facility] [address] [facility] [place] [address] 01/27/2024 6:15 AM EST Anticoagulation Centralized Clinical Pharmacy Services, Denise Palomares [address] [place] [address] [address] [facility], [address] [place] [address] 09/15/2024 1:00 PM EDT Office Visit Family Practice [facility] [place] [address] [place] [address] Sander Smith DO [address] [facility] [place] [address] Scheduled Orders Name Type Priority Associated Diagnoses Orde r Schedule TSH WITH FREE T4 IF INDICATED Lab Routine 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d Expected: 03/03/2024 (Approximate), Expires: 01/01/2025 Health Maintenance Due Date Last Done Comments Adult Wellness Visit 2012 DXA Scan 04/24/2018 04/24/2016, 07/09, 08/04/2012 Depression Screening 04/06/2020 04/06/2019 COVID-19 Vaccine ( season) 2023 12/17/2021, 10/04/2021, 01/26/2021, Additional history exists Influenza Vaccine (FLU shot) (#1) 2023 01/19/2023, 12/17/2021, 01/11/2021, Additional history exists TSH 12/28/2024 12/29/2023, 11/09, [...] as of this encounter Visit Diagnoses Diagnosis 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d- Primary documented in this encounter Care Teams Food Beverage Attendant Relationship Specialty Start Date End Date Sander Smith DO [address] [place] [address] PCP - General Family Medicine 05/04/18 documented as of this encounter
--- OUTSIDE RECORDS SUMMARY | 2024-05-02 20:22 | External Medical Summary | Summary of Care ---
Author Name Unknown Organization [facility] Address [address] [facility] [place] [address] Phone [phone] Care Team Providers Care Flame Annealing Machine Setter Name Role Phone Sander Smith DO Primary Care Provider Reason for Visit * Reason Comments Dosage Adjustment Via Phone (anticoag Cl inic) Encounter Details Date Type Department Care Team ([facility] st Contact Info) Description 01/27/2024 6:15 AM EST Anticoagulation Centralized Clinical Pharmacy Services, Denise Palomares [address] [place] [address] [place] [address] [facility], [address] [place] [address] History of CVA (cerebrovascular accident)*; Anticoagulation management encounter; Warfarin anticoagulation Allergies Active Allergy Reactions Criticality Noted Date Comments Cat Dander 04/30/2017 No Known Drug Allergy 09/23/2001 documented as of this encounter (statuses as of 01/27/2024) Medications loratadine (CLARITIN) 10 MG TabletIndicatio ns:Other [...] [facility] 180 Tablet 1 4 Active Warfarin Sodium 4 MG Oral Tablet (Coumadin) TAKE 1 OR 2 TABLETS BY MOUTH DAILY OR DIRECTED BY COUMADIN CLINIC 180 Tablet 1 4 01/27/20 24 Discontinu ed(Refill) documented as of this encounter (statuses as of 01/27/2024) Active Problems Problem Noted Date Diagnosed Date Warfarin anticoagulation 10/24/2014 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 d 10/24/2014 Other seasonal allergic rhinitis 10/24/2014 History of CVA (cerebrovascular accident) 2014 Mural thrombus of heart without CA 02/18/2012 Anticoagulation management encounter 09/23/2001 Allergic rhinitis 02/02/2001 Aphasia, post-stroke 01/05/2001 documented as of this encounter (statuses as of 01/27/2024) Resolved Problems Problem Noted Date Diagnosed Date Resolved Date HTN, goal below 140/90 09/15/202309/14 Old CA (myocardial infarction) 08/29/2020 08/29/2020 Encounter for examination fo r normal comparison and control in clinical research program 06/09/2018 10/11/2019 Overview (06/26/2020): DO NOT DELETE [facility] DETECT Study: Project # [id number], Instructor Hairspring: Espinoza Villatoro, PhD. SUMMARY: Goal: Establish test [...] contact study staff at ; after hours Instructor Hairspring via the [facility] hospital casting machine operator . Please contact study team before resolving/deleting from patients problem list. Study phone number: [phone]. Diagnosis changed due to Research Module. Go to Snapshot for study details. Encounter for examination fo r normal comparison and control in clinical research program 06/09/2018 11/08/2021 Overview (06/26/2020): DO NOT DELETE [facility] Study: Project # [id number], Instructor Hairspring: Kosta Valdovinos, MS, MPH. SUMMARY: Goal: Establish [...] contact study staff at ; after hours Instructor Hairspring via the [facility] hospital casting machine operator . - Please contact study team before resolving/deleting from patients problem list. Study phone number: [phone]. Diagnosis changed due to Research Module. Go to Snapshot for study details. 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 02/16/2003 10/24/2014 Overview (12/09/2016): ICD-10 update of inactive term ABN THYROID FUNCT STUDY 05/05/200105/2001 Asthma, allergic 02/02/2001 10/24/2014 detention current use of ant icoagulant therapy 01/05/2001 10/24/2014 Overview (12/09/2016): ICD-10 update of inactive term CVA 10/24/2014 HYPOTHYROIDISM NOS 5 documented as of this encounter (statuses as of 01/27/2024) Immunizations Name Administration Dates Next Due COVID-19 mRNA, LNP-s, No Pre serve, 2-Dose Series (Moderna) 01/26/2021,06/12/2020,05/15/2020 COVID-19, mRNA, LNP-s, PF, B ooster, 100mcg/0.5mg (Moderna) 10/04/2021 Covid-19, Mrna, Lnp-s, Pf, B ivalent, 30 Mcg, IM, 12 yrs and above (Pfizer) 12/17/2021 Diptheria/Tetanus (Adult) 03/10/2004 PPD 12/11/2022 Pneumococcal Conjugate Vacc, 13 Valent (Prevnar) 10/24/2014 Pneumococcal Conjugate Vacci ne, 20-valent ([id number]) 09/13/2022 Season Influenza, Quad, PF, Adjuvanted, 65+ [...] 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 Thank You Quynh Cortes, PharmD Clinical Pharmacist [facility] Services ([facility]) [phone] / [phone] 01/27/2024, 4:41 PM * Rosalind Escamilla CPhT - 01/27/2024 12:55 PM EST Contacts Contact Date/Time Type Contact Phone/Fax 01/27/2024 12:47 PM EST Phone (Outgoing) Kiara Pedroza (Self) [phone] (M) Spoke to Patient Subjective Patient Findings Positives: Other complaints (Patient stated she can not take generic Jantoven due to making her sick. Patient stated last few times she tried to fill warfarin they tried giving Jantoven, patient asking if script could be updated to state needs brand necessary) Negatives: Signs/symptoms of thrombosis, Signs/symptoms of bleeding, Change in health, Change in alcohol use, Change in activity, Upcoming invasive procedure, Missed doses, Extra doses, Change in medications, Change in diet/appetite, Bruising Advised patient to contact Anticoagulation Clinic if any unusual bruising or bleeding, recent illness, changes in medication, or questions/concerns. PT/INR results, Coumadin dose instructions, and next PT/INR date communicated as noted by Pharmacist: Yes ROSALIND ESCAMILLA CPhT 01/27/2024, 12:57 PM * Quynh Cortes RPh - 01/27/2024 9:45 AM EST Coumadin Clinic (region specific) Objective Current Warfarin Dose As of 01/27/2024 Warfarin maintenance plan: 2 mg (4 mg x 0.5) every Fri; 4 mg (4 mg x 1) all other days INR Result As of 01/27/2024 INR goal: 2.0-3.0 INR used for dosin.4 (01/26/2024) Assessment & Plan Warfarin Plan As of 01/27/2024 Full warfarin instructions: 2 mg every Fri; 4 mg all other days No change documented: Quynh Cortes RPh Next INR check: 02/23/2024 Repeat PT/INR in 4 week(s) Weekly dose: not changed Additional Dosing Information: Description Jami Hartman 4 wk max INR check Tech to contact patient with dose instructions as noted. Quynh Cortes RPh 01/27/2024, 9:45 AM documented in this encounter Plan of Treatment Upcoming Encounters Date Type Department Care Team (Late st Contact Info) Description 02/23/2024 11:10 AM EST Laboratory [facility] [address] [place] [id number] [facility] [address] [place] [address] 02/24/2024 6:15 AM EST Anticoagulation Centralized Clinical Pharmacy Services, Denise Palomares [address] [place] [address] [place] [address] [place] [address] 09/15/2024 1:00 PM EDT Office Visit Family Practice [facility] [address] [place], [place] [address] Sander Smith DO [address] [place] [address] Health Maintenance Due Date Last Done Comments [...] (TIA), and cerebral infarction without residual deficits Anticoagulation management encounter Encounter for therapeutic drug monitoring Warfarin anticoagulation Long-term (current) use of anticoagulants documented in this encounter Care Teams Flame Annealing Machine Setter Relationship Specialty Start Date End Date Sander Smith DO [address] [place] [address] PCP - General Family Medicine 05/04/18 documented as of this encounter
--- OUTSIDE RECORDS SUMMARY | 2024-05-02 20:22 | External Medical Summary | Summary of Care ---
Author Name Unknown Organization [facility] Address [address] [place] [address] Phone [phone] Care Team Providers Care Mobile Application Tester Name Role Phone Sander Smith DO Primary Care Provider Reason for Visit * Reason Comments Outpatient Testing Encounter Details Date Type Department Care Team (Late st Contact Info) Description 03/22/2024 11:10 AM EST Laboratory [facility] [address] [place] [address] [facility] [address] [place] [address] History of CVA (cerebrovascular accident) Allergies Active Allergy Reactions Criticality Noted Date Comments Cat Dander 04/30/2017 No Known Drug Allergy 09/23/2001 documented as of this encounter (statuses as of 03/22/2024) Medications loratadine (CLARITIN) 10 MG TabletIndicatio ns:Other [...] as of this encounter (statuses as of 03/22/2024) Active Problems Problem Noted Date Diagnosed Date Warfarin anticoagulation 10/24/2014 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 d 10/24/2014 Other seasonal allergic rhinitis 10/24/2014 History of CVA (cerebrovascular accident) 2014 Mural thrombus of heart without [place] 02/18/2012 Anticoagulation management encounter 09/23/2001 Allergic rhinitis 02/02/2001 Aphasia, post-stroke 01/05/2001 documented as of this encounter (statuses as of 03/22/2024) Resolved Problems Problem Noted Date Diagnosed Date Resolved Date HTN, goal below 140/90 09/15/202309/14 Old [place] (myocardial infarction) 08/29/2020 08/29/2020 Encounter for examination fo r normal comparison and control in clinical research program 06/09/2018 10/11/2019 Overview (06/26/2020): DO NOT DELETE [employer] DETECT Study: Project # [id number], Online Media Buyer: Espinoza Villatoro, PhD. SUMMARY: Goal: Establish test [...] contact study staff at ; after hours Online Media Buyer via the [facility] continuous process machine operator . Please contact study team before resolving/deleting from patients problem list. Study phone number: [phone]. Diagnosis changed due to Research Module. Go to Snapshot for study details. Encounter for examination fo r normal comparison and control in clinical research program 06/09/2018 11/08/2021 Overview (06/26/2020): DO NOT DELETE - [employer] DETECT Study: Project # [id number], Online Media Buyer: Kosta Valdovinos, MS, MPH. SUMMARY: Goal: Establish [...] contact study staff at ; after hours Online Media Buyer via the [facility] continuous process machine operator . - Please contact study team before resolving/deleting from patients problem list. Study phone number: [phone]. Diagnosis changed due to Research Module. Go to Snapshot for study details. 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 current use of ant icoagulant therapy 01/05/2001 10/24/2014 Overview (12/09/2016): ICD-10 update of inactive term CVA 10/24/2014 HYPOTHYROIDISM NOS 5 documented as of this encounter (statuses as of 03/22/2024) Immunizations Name Administration Dates Next Due COVID-19 mRNA, LNP-s, No Pre serve, 2-Dose Series (Moderna) 01/26/2021,06/12/2020,05/15/2020 COVID-19, mRNA, LNP-s, PF, B ooster, 100mcg/0.5mg (Moderna) 10/04/2021 Covid-19, Mrna, Lnp-s, Pf, B ivalent, 30 Mcg, IM, 12 yrs and above (Pfizer) 12/17/2021 Diptheria/Tetanus (Adult) 03/10/2004 PPD 12/11/2022 Pneumococcal Conjugate Vacc, 13 Valent (Prevnar) 10/24/2014 Pneumococcal Conjugate Vacci ne, 20-valent ([id number]) 09/13/2022 Season Influenza, Quad, PF, Adjuvanted, 65+ [...] 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 Not on file Not on f ile documented as of this encounter Plan of Treatment Upcoming Encounters Date Type Department Care Team (Late st Contact Info) Description 03/23/2024 6:15 AM EST Anticoagulation Centralized Clinical Pharmacy Services, Denise Palomares [address] [place] [address] [place] [address] [facility], [address] [place] [address] 09/15/2024 1:00 PM EDT Office Visit Family Practice [facility] [address] [facility] [place] [address] Sander Smith, DO [address] [facility] [place] [address] Pending Results Name Type Priority Associated Diagnoses Date /Time PT INR Lab Routine History of CVA (cerebrovascular accident) 03/22/2024 11:09 AM EST Health Maintenance Due Date Last [...] deficits documented in this encounter Care Teams Mobile Application Tester Relationship Specialty Start Date End Date Sander Smith DO [facility] [place] [address] PCP - General Family Medicine 05/04/18 documented as of this encounter
--- OUTSIDE RECORDS SUMMARY | 2024-05-02 20:22 | External Medical Summary ---
Author Name Unknown Address Unknown Organization K09:[facility] [place] [address] Laboratory Report Ordering Provider Test Date Status VARSHA DELUNA 12/29/2023 11:20:46 Final Standing order for pt/inr. < br/>Please draw pt/inr every 1 to 4 weeks as requested
Results to [facility]

Warfarin Therapy
INR: 2.0-3.0 conventional anticoagulation
INR: 2.5-3.5 high intensity anticoagulation Observation Date Value Abnormality Reference (Units ) Status PT 12/29/2023 11:20:46 29.2 Above high normal 11 .6-15.2 (seconds) Final INR 12/29/2023 11:20:46 2.7 Above high normal 0. 8-1.2 Final Performing Location [facility] [place] [address]
--- OUTSIDE RECORDS SUMMARY | 2024-05-02 20:22 | External Medical Summary | Summary of Care ---
Author Name Unknown Organization [facility] Address [address] [place] [address] Phone [phone] Care Team Providers Care Plastic Straightening Roll Operator Name Role Phone Sander Smith DO Primary Care Provider [phone] Reason for Visit * Reason Onset Date Comments Order Request 12/23/2023 Encounter Details Date Type Department Care Team (Late st Contact Info) Description 12/23/2023 Telephone Family Practice [facility] [address] [facility] [place] [address] Sander Smith DO [address] [place] [address] Order Request Allergies Active Allergy Reactions Criticality Noted Date Comments Cat Dander 04/30/2017 No Known Drug Allergy 09/23/2001 documented as of this encounter (statuses as of 12/25/2023) Medications Medication Sig Dispensed Refills Start Date [...] as of this encounter (statuses as of 12/25/2023) Active Problems Problem Noted Date Diagnosed Date Warfarin anticoagulation 10/24/2014 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 d 10/24/2014 Other seasonal allergic rhinitis 10/24/2014 History of CVA (cerebrovascular accident) 2014 Mural thrombus of heart without [place] 02/18/2012 Anticoagulation management encounter 09/23/2001 Allergic rhinitis 02/02/2001 Aphasia, post-stroke 01/05/2001 documented as of this encounter (statuses as of 12/25/2023) Resolved Problems Problem Noted Date Diagnosed Date Resolved Date HTN, goal below 140/90 09/15/202309/14 Old [place] (myocardial infarction) 08/29/2020 08/29/2020 Encounter for examination fo r normal comparison and control in clinical research program 06/09/2018 10/11/2019 Overview: DO NOT DELETE [employer] DETECT Study: Project # [id number], Procedures Tech: Espinoza Villatoro, PhD. SUMMARY: Goal: Establish test [...] contact study staff at ; after hours Procedures Tech via the [facility] canteen operator . Please contact study team before resolving/deleting from patients problem list. Study phone number: [phone]. Diagnosis changed due to Research Module. Go to Snapshot for study details. Encounter for examination fo r normal comparison and control in clinical research program 06/09/2018 11/08/2021 Overview: DO NOT DELETE - [employer] DETECT Study: Project # [id number], Procedures Tech: Kosta Valdovinos, MS, MPH. SUMMARY: Goal: Establish [...] contact study staff at ; after hours Procedures Tech via the [facility] canteen operator . - Please contact study team before resolving/deleting from patients problem list. Study phone number: [phone]. Diagnosis changed due to Research Module. Go to Snapshot for study details. 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 current use of ant icoagulant therapy 02/16/2003 10/24/2014 Overview: ICD-10 update of inactive term ABN THYROID FUNCT STUDY 05/05/200105/2001 Asthma, allergic 02/02/2001 10/24/2014 halfway current use of ant icoagulant therapy 01/05/2001 10/24/2014 Overview: ICD-10 update of inactive term CVA 10/24/2014 HYPOTHYROIDISM NOS 5 documented as of this encounter (statuses as of 12/25/2023) Immunizations Name Administration Dates Next Due COVID-19 mRNA, LNP-s, No Pre serve, 2-Dose Series (Moderna) 01/26/2021,06/12/2020,05/15/2020 COVID-19, mRNA, LNP-s, PF, B ooster, 100mcg/0.5mg (Moderna) 10/04/2021 Covid-19, Mrna, Lnp-s, Pf, B ivalent, 30 Mcg, IM, 12 yrs and above (Pfizer) 12/17/2021 Diptheria/Tetanus (Adult) 03/10/2004 PPD 12/11/2022 Pneumococcal Conjugate Vacc, 13 Valent (Prevnar) 10/24/2014 Pneumococcal Conjugate Vacci ne, 20-valent ([id number]) 09/13/2022 Season Influenza, Quad, PF, Adjuvanted, 65+ [...] encounter Miscellaneous Notes * Telephone Encounter - Magdalena Carroll LPN - 12/25/2023 11:45 AM EDT Patient aware and verbalized understanding, will comply * Telephone Encounter - Sander Smith DO - 12/23/2023 5:18 PM EDT Order signed * Telephone Encounter - Capri Del Rosario LPN - 12/23/2023 2:49 PM EDT Patient requesting thyroid labs- says it was low the last time it was checked. * Telephone Encounter - Mi Garrett OSA - 12/23/2023 2:24 PM EDT An order was requested for this patient. Name of Requesting Provider: Dr Sander Smith Order Requested: Thyroid labs Diagnosis/Reason for Request: not feeling well, low reading last month If order request is for Mammogram: Is the patient having any breast symptoms? N/A Is there a chance of ? N/A Has the patient had any breast problems in the past? NA What location AND department does the patient wish to have their order completed at? [facility] Fax Number, if applicable: na If the caller is not a current patient, please advise the patient to call their current PCP to havethe order's prior to being seen in our office. The patient was informed that our providers would not order anything (medication, labs, etc.) prior to being seen. documented in this encounter Plan of Treatment Upcoming Encounters Date Type Department Care Team (Late st Contact Info) Description 12/29/2023 11:10 AM EDT Laboratory [facility] [place] [address] [place] [address] [address] [facility] [place] [address] 12/30/2023 6:15 AM EDT Anticoagulation Central[facility] Clinical Pharmacy Services, Denise Palomares [address] [place] [address] [place] [address] [facility], [address] [place] [address] 09/15/2024 1:00 PM EDT Office Visit Family Practice [facility] Minnie Hobbs [address] [place] [address] Sander Smith DO [address] [facility] [place] [address] Scheduled Orders Name Type Priority Associated Diagnoses Orde r Schedule TSH WITH FREE T4 IF INDICATED Lab Routine 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d Expected: 12/23/2023 (Approximate), Expires: 12/22/2024 Health Maintenance Due Date Last Done Comments [...] Primary documented in this encounter Care Teams Plastic Straightening Roll Operator Relationship Specialty Start Date End Date Sander Smith DO [address] [place] [address] PCP - General Family Medicine 05/04/18 documented as of this encounter
--- OUTSIDE RECORDS SUMMARY | 2024-05-02 20:22 | External Medical Summary | Summary of Care ---
Author Name Unknown Organization [facility] Address [address] [place] [address] Phone [phone] Care Team Providers Care Core Placer Name Role Phone Sander Smith DO Primary Care Provider [phone] Reason for Visit * Reason Comments Dosage Adjustment Via Phone (anticoag Cl inic) Encounter Details Date Type Department Care Team ([facility] st Contact Info) Description 12/30/2023 6:15 AM EDT Anticoagulation Centralized Clinical Pharmacy Services, Denise Palomares [address] [place] [address] [place] [address] [facility], [address] [place] [address] History of CVA (cerebrovascular accident)*; Anticoagulation management encounter; Warfarin anticoagulation Allergies Active Allergy Reactions Criticality Noted Date Comments Cat Dander 04/30/2017 No Known Drug Allergy 09/23/2001 documented as of this encounter (statuses as of 12/30/2023) Medications Medication Sig Dispensed Refills Start Date [...] as of this encounter (statuses as of 12/30/2023) Active Problems Problem Noted Date Diagnosed Date Warfarin anticoagulation 10/24/2014 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 d 10/24/2014 Other seasonal allergic rhinitis 10/24/2014 History of CVA (cerebrovascular accident) 2014 Mural thrombus of heart without [place] 02/18/2012 Anticoagulation management encounter 09/23/2001 Allergic rhinitis 02/02/2001 Aphasia, post-stroke 01/05/2001 documented as of this encounter (statuses as of 12/30/2023) Resolved Problems Problem Noted Date Diagnosed Date Resolved Date HTN, goal below 140/90 09/15/202309/14 Old [place] (myocardial infarction) 08/29/2020 08/29/2020 Encounter for examination fo r normal comparison and control in clinical research program 06/09/2018 10/11/2019 Overview: DO NOT DELETE [employer] DETECT Study: Project # [id number], River Boat Captain: Espinoza Villatoro, PhD. SUMMARY: Goal: Establish test [...] contact study staff at ; after hours River Boat Captain via the [facility] hospital gasoline power shovel operator . Please contact study team before resolving/deleting from patients problem list. Study phone number: [phone]. Diagnosis changed due to Research Module. Go to Snapshot for study details. Encounter for examination fo r normal comparison and control in clinical research program 06/09/2018 11/08/2021 Overview: DO NOT DELETE - [employer] DETECT Study: Project # [id number], River Boat Captain: Kosta Valdovinos, MS, MPH. SUMMARY: Goal: Establish [...] contact study staff at ; after hours River Boat Captain via the [facility] hospital gasoline power shovel operator . - Please contact study team before resolving/deleting from patients problem list. Study phone number: [phone]. Diagnosis changed due to Research Module. Go to Snapshot for study details. 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 current use of ant icoagulant therapy 01/05/2001 10/24/2014 Overview: ICD-10 update of inactive term CVA 10/24/2014 HYPOTHYROIDISM NOS 5 documented as of this encounter (statuses as of 12/30/2023) Immunizations Name Administration Dates Next Due COVID-19 mRNA, LNP-s, No Pre serve, 2-Dose Series (Moderna) 01/26/2021,06/12/2020,05/15/2020 COVID-19, mRNA, LNP-s, PF, B ooster, 100mcg/0.5mg (Moderna) 10/04/2021 Covid-19, Mrna, Lnp-s, Pf, B ivalent, 30 Mcg, IM, 12 yrs and above (Pfizer) 12/17/2021 Diptheria/Tetanus (Adult) 03/10/2004 PPD 12/11/2022 Pneumococcal Conjugate Vacc, 13 Valent (Prevnar) 10/24/2014 Pneumococcal Conjugate Vacci ne, 20-valent ([id number]) 09/13/2022 Season Influenza, Quad, PF, Adjuvanted, 65+ [...] on file documented as of this encounter Progress Notes * Jacqueline Tavares PHARM Tech - 12/30/2023 9:15 AM EDT Contacts Contact Date/Time Type Contact Phone/Fax 12/30/2023 09:13 AM EDT Phone (Outgoing) Kiara Pedroza (Self) [phone] (M) Subjective Patient Findings Negatives: Signs/symptoms of bleeding, Change in health, Change in activity, Upcoming invasive procedure, Missed doses, Extra doses, Change in medications, Change in diet/appetite, Bruising Advised patient to contact Anticoagulation Clinic if any unusual bruising or bleeding, recent illness, changes in medication, or questions/concerns. PT/INR results, Coumadin dose instructions, and next PT/INR date communicated as noted by Pharmacist: Yes KAREN RIVERA 12/30/2023, 9:15 AM * Kandy Falcon RPh - 12/30/2023 9:06 AM EDT Coumadin Clinic (region specific) Objective Current Warfarin Dose As of 12/30/2023 Warfarin maintenance plan: 2 mg (4 mg x 0.5) every Fri; 4 mg (4 mg x 1) all other days INR Result As of 12/30/2023 INR goal: 2.0-3.0 INR used for dosin.7 (12/29/2023) Assessment & Plan Warfarin Plan As of 12/30/2023 Full warfarin instructions: 2 mg every Fri; 4 mg all other days No change documented: Kandy Falcon RPh Next INR check: 01/26/2024 Repeat PT/INR in 4 week(s) Weekly dose: not changed Additional Dosing Information: Description [facility] 4 wk max INR check Tech to contact patient with dose instructions as noted. Kandy Falcon RPh 12/30/2023, 9:06 AM documented in this encounter Plan of Treatment Upcoming Encounters Date Type Department Care Team (Late st Contact Info) Description 09/15/2024 1:00 PM EDT Office Visit Family Practice [facility] [address] [facility] [place] [address] Sander Smith DO [address] [place] [address] Health Maintenance Due Date Last Done Comments [...] anticoagulants documented in this encounter Care Teams Core Placer Relationship Specialty Start Date End Date Sandre Smith DO [facility] [place] [address] PCP - General Family Medicine 05/04/18 documented as of this encounter
--- OUTSIDE RECORDS SUMMARY | 2024-05-02 20:22 | External Medical Summary | Summary of Care ---
Author Name Unknown Organization [facility] Address [address] [place] [address] Phone [phone] Care Team Providers Care Malted Milk Mixer Name Role Phone Sander Smith DO Primary Care Provider [phone] Reason for Visit * Reason Comments Outpatient Testing Encounter Details Date Type Department Care Team (Late st Contact Info) Description 12/01/2023 11:10 AM EDT Laboratory Laboratory [facility] [address] [place] [address] [facility] [address] [place] [address] History of CVA (cerebrovascular accident); 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d Allergies Active Allergy Reactions Criticality Noted Date Comments Cat Dander 04/30/2017 No Known Drug Allergy 09/23/2001 documented as of this encounter (statuses as of 12/01/2023) Medications Medication Sig Dispensed Refills Start Date [...] as of this encounter (statuses as of 12/01/2023) Active Problems Problem Noted Date Diagnosed Date Warfarin anticoagulation 10/24/2014 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 d 10/24/2014 Other seasonal allergic rhinitis 10/24/2014 History of CVA (cerebrovascular accident) 2014 Mural thrombus of heart without [place] 02/18/2012 Anticoagulation management encounter 09/23/2001 Allergic rhinitis 02/02/2001 Aphasia, post-stroke 01/05/2001 documented as of this encounter (statuses as of 12/01/2023) Resolved Problems Problem Noted Date Diagnosed Date Resolved Date HTN, goal below 140/90 09/15/202309/14 Old [place] (myocardial infarction) 08/29/2020 08/29/2020 Encounter for examination fo r normal comparison and control in clinical research program 06/09/2018 10/11/2019 Overview: DO NOT DELETE [employer] DETECT Study: Project # [id number], Underground Roof Bolter: Espinoza Villatoro, PhD. SUMMARY: Goal: Establish test [...] contact study staff at ; after hours Underground Roof Bolter via the [facility] hospital emergency dispatch operator . Please contact study team before resolving/deleting from patients problem list. Study phone number: [phone]. Diagnosis changed due to Research Module. Go to Snapshot for study details. Encounter for examination fo r normal comparison and control in clinical research program 06/09/2018 11/08/2021 Overview: DO NOT DELETE - [employer] DETECT Study: Project # [id number], Underground Roof Bolter: Kosta Valdovnios, MS, MPH. SUMMARY: Goal: Establish test characteristics [...] contact study staff at ; after hours Underground Roof Bolter via the [facility] hospital emergency dispatch operator . - Please contact study team before resolving/deleting from patients problem list. Study phone number: [phone]. Diagnosis changed due to Research Module. Go to Snapshot for study details. Asthma with severity to be determined 03/12/2004 10/24/2014 Overview: ICD-10 update of inactive term [facility] current use of ant icoagulant therapy 02/16/2003 10/24/2014 Overview: ICD-10 update of inactive term ABN THYROID FUNCT STUDY 05/05/200105/2001 Asthma, allergic 02/02/2001 10/24/2014 meterman current use of ant icoagulant therapy 01/05/2001 10/24/2014 Overview: ICD-10 update of inactive term CVA 10/24/2014 HYPOTHYROIDISM NOS 5 documented as of this encounter (statuses as of 12/01/2023) Immunizations Name Administration Dates Next Due COVID-19 mRNA, LNP-s, No Pre serve, 2-Dose Series (Moderna) 01/26/2021,06/12/2020,05/15/2020 COVID-19, mRNA, LNP-s, PF, B ooster, 100mcg/0.5mg (Moderna) 10/04/2021 Covid-19, Mrna, Lnp-s, Pf, B ivalent, 30 Mcg, IM, 12 yrs and above (Pfizer) 12/17/2021 Diptheria/Tetanus (Adult) 03/10/2004 PPD 12/11/2022 Pneumococcal Conjugate Vacc, 13 Valent (Prevnar) 10/24/2014 Pneumococcal Conjugate Vacci ne, 20-valent ([id number]) 09/13/2022 Season Influenza, Quad, PF, Adjuvanted, 65+ [...] Care Team (Late st Contact Info) Description 12/02/2023 6:15 AM EDT Anticoagulation Centralized Clinical Pharmacy Services, Denise Palomares [address] [place] [address] [place] [address] [facility] [address] [place] [address] 09/15/2024 1:00 PM EDT Office Visit Family Practice [facility] [address] [place] [address] Sander Smith DO [address] [place] [address] Pending Results Name Type Priority Associated Diagnoses Date /Time PT INR Lab Routine History of CVA (cerebrovascular accident) 12/01/2023 10:54 AM EDT TSH WITH FREE T4 IF INDICATED Lab Routine 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d 12/01/2023 10:54 AM EDT Health Maintenance Due Date Last [...] thyroid documented in this encounter Care Teams Malted Milk Mixer Relationship Specialty Start Date End Date Sander Smith DO [address] [place] [address] PCP - General Family Medicine 05/04/18 documented as of this encounter
--- OUTSIDE RECORDS SUMMARY | 2024-05-02 20:22 | External Medical Summary ---
Author Name Unknown Address Unknown Organization K01:[facility] - [address] [place] [address] Laboratory Report Ordering Provider Test Date Status JOSEFA VINSON 12/29/2023 11:20:46 Final Observation Date Value Abnormality Reference (Units ) Status TSH 12/29/2023 11:20:46 22.80 Above high normal 0. 27-4.20 (uIU/mL) Final Performing Location [facility] - [address] [place] [address]
--- OUTSIDE RECORDS SUMMARY | 2024-05-02 20:22 | External Medical Summary | Summary of Care ---
Author Name Unknown Organization [facility] Address [address] [facility] [place] [address] Phone [phone] Care Team Providers Care Collector Of Internal Revenue Name Role Phone Sander Smith DO Primary Care Provider Reason for Visit * Reason Comments Dosage Adjustment Via Phone (anticoag Cl inic) Encounter Details Date Type Department Care Team ([facility] st Contact Info) Description 02/24/2024 6:15 AM EST Anticoagulation Centralized Clinical Pharmacy Services, Denise Palomares [address] [place] [address] [place] [address] [facility], [address] [place] [address] History of CVA (cerebrovascular accident)*; Anticoagulation management encounter; Warfarin anticoagulation Allergies Active Allergy Reactions Criticality Noted Date Comments Cat Dander 04/30/2017 No Known Drug Allergy 09/23/2001 documented as of this encounter (statuses as of 02/24/2024) Medications loratadine (CLARITIN) 10 MG TabletIndicatio ns:Other [...] as of this encounter (statuses as of 02/24/2024) Active Problems Problem Noted Date Diagnosed Date Warfarin anticoagulation 10/24/2014 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 d 10/24/2014 Other seasonal allergic rhinitis 10/24/2014 History of CVA (cerebrovascular accident) 2014 Mural thrombus of heart without [place] 02/18/2012 Anticoagulation management encounter 09/23/2001 Allergic rhinitis 02/02/2001 Aphasia, post-stroke 01/05/2001 documented as of this encounter (statuses as of 02/24/2024) Resolved Problems Problem Noted Date Diagnosed Date Resolved Date HTN, goal below 140/90 09/15/202309/14 Old [place] (myocardial infarction) 08/29/2020 08/29/2020 Encounter for examination fo r normal comparison and control in clinical research program 06/09/2018 10/11/2019 Overview (06/26/2020): DO NOT DELETE [facility] DETECT Study: Project # [id number], Vp Security: Espinoza Villatoro, PhD. SUMMARY: Goal: Establish test [...] contact study staff at ; after hours Vp Security via the [facility] electronic plotting system operator . Please contact study team before resolving/deleting from patients problem list. Study phone number: [phone]. Diagnosis changed due to Research Module. Go to Snapshot for study details. Encounter for examination fo r normal comparison and control in clinical research program 06/09/2018 11/08/2021 Overview (06/26/2020): DO NOT DELETE - [facility] DETECT Study: Project # [id number], Vp Security: Kosta Valdovinos, MS, MPH. SUMMARY: Goal: Establish [...] contact study staff at ; after hours Vp Security via the [facility] electronic plotting system operator . - Please contact study team before resolving/deleting from patients problem list. Study phone number: [phone]. Diagnosis changed due to Research Module. Go to Snapshot for study details. 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 inactive term [facility] current use of ant icoagulant therapy 02/16/2003 10/24/2014 Overview (12/09/2016): ICD-10 update of inactive term ABN THYROID FUNCT STUDY 05/05/200105/2001 Asthma, allergic 02/02/2001 10/24/2014 continuous churn buttermaker current use of ant icoagulant therapy 01/05/2001 10/24/2014 Overview (12/09/2016): ICD-10 update of inactive term CVA 10/24/2014 HYPOTHYROIDISM NOS 5 documented as of this encounter (statuses as of 02/24/2024) Immunizations Name Administration Dates Next Due COVID-19 mRNA, LNP-s, No Pre serve, 2-Dose Series (Moderna) 01/26/2021,06/12/2020,05/15/2020 COVID-19, mRNA, LNP-s, PF, B ooster, 100mcg/0.5mg (Moderna) 10/04/2021 Covid-19, Mrna, Lnp-s, Pf, B ivalent, 30 Mcg, IM, 12 yrs and above (Pfizer) 12/17/2021 Diptheria/Tetanus (Adult) 03/10/2004 PPD 12/11/2022 Pneumococcal Conjugate Vacc, 13 Valent (Prevnar) 10/24/2014 Pneumococcal Conjugate Vacci ne, 20-valent ([id number]) 09/13/2022 Season Influenza, Quad, PF, Adjuvanted, 65+ [...] 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 Not on file Not on f ile documented as of this encounter Progress Notes * Kaylin Pablo CPhT - 02/24/2024 9:55 AM EST Contacts Contact Date/Time Type Contact Phone/Fax 02/24/2024 09:54 AM EST Phone (Outgoing) Kiara Pedroza (Self) [phone] (M) Spoke to Patient Subjective Patient Findings Negatives: Signs/symptoms of bleeding, Change in health, Change in activity, Upcoming invasive procedure, Missed doses, Extra doses, Change in medications, Change in diet/appetite, Bruising Advised patient to contact Anticoagulation Clinic if any unusual bruising or bleeding, recent illness, changes in medication, or questions/concerns. PT/INR results, Coumadin dose instructions, and next PT/INR date communicated as noted by Pharmacist: Yes KAYLIN PABLO CPhT 02/24/2024, 9:55 AM * Kandy Falcon RPh - 02/24/2024 9:39 AM EST Coumadin Clinic (region specific) Objective Current Warfarin Dose As of 02/24/2024 Warfarin maintenance plan: 2 mg (4 mg x 0.5) every Fri; 4 mg (4 mg x 1) all other days INR Result As of 02/24/2024 INR goal: 2.0-3.0 INR used for dosin.5 (02/23/2024) Assessment & Plan Warfarin Plan As of 02/24/2024 Full warfarin instructions: 2 mg every Fri; 4 mg all other days No change documented: Kandy Falcon RPh Next INR check: 03/22/2024 Repeat PT/INR in 4 week(s) Weekly dose: not changed Additional Dosing Information: Description Jami [place] 4 wk max INR check Tech to contact patient with dose instructions as noted. Kandy Falcon RPh 02/24/2024, 9:39 AM documented in this encounter Plan of Treatment Upcoming Encounters Date Type Department Care Team (Late st Contact Info) Description 09/15/2024 1:00 PM EDT Office Visit Family Practice [facility] [place] [address] [place] [address] Sander Smith DO [address] [place] [address] Health Maintenance Due Date Last Done Comments [...] anticoagulants documented in this encounter Care Teams Collector Of Internal Revenue Relationship Specialty Start Date End Date Sander Smith DO [address] [place] [address] PCP - General Family Medicine 05/04/18 documented as of this encounter
--- OUTSIDE RECORDS SUMMARY | 2024-05-02 20:22 | External Medical Summary | Summary of Care ---
Author Name Unknown Organization [facility] Address [address] [place] [address] Phone [phone] Care Team Providers Care Focuser Name Role Phone Sander Smith DO Primary Care Provider Reason for Visit * Reason Comments Outpatient Testing Encounter Details Date Type Department Care Team (Late st Contact Info) Description 02/23/2024 11:10 AM EST Laboratory Laboratory [address] [facility] [address] [place] [address] [facility] Lab Scen[address] [place] [address] History of CVA (cerebrovascular accident); 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d Allergies Active Allergy Reactions Criticality Noted Date Comments Cat Dander 04/30/2017 No Known Drug Allergy 09/23/2001 documented as of this encounter (statuses as of 02/23/2024) Medications loratadine (CLARITIN) 10 MG TabletIndicatio ns:Other [...] as of this encounter (statuses as of 02/23/2024) Active Problems Problem Noted Date Diagnosed Date Warfarin anticoagulation 10/24/2014 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 d 10/24/2014 Other seasonal allergic rhinitis 10/24/2014 History of CVA (cerebrovascular accident) 2014 Mural thrombus of heart without [place] 02/18/2012 Anticoagulation management encounter 09/23/2001 Allergic rhinitis 02/02/2001 Aphasia, post-stroke 01/05/2001 documented as of this encounter (statuses as of 02/23/2024) Resolved Problems Problem Noted Date Diagnosed Date Resolved Date HTN, goal below 140/90 09/15/202309/14 Old [place] (myocardial infarction) 08/29/2020 08/29/2020 Encounter for examination fo r normal comparison and control in clinical research program 06/09/2018 10/11/2019 Overview (06/26/2020): DO NOT DELETE [facility] DETECT Study: Project # [id number], Community Integration Specialist: Espinoza Villatoro, PhD. SUMMARY: Goal: Establish test [...] contact study staff at ; after hours Community Integration Specialist via the [facility] fishing line winding machine operator . Please contact study team before resolving/deleting from patients problem list. Study phone number: [phone]. Diagnosis changed due to Research Module. Go to Snapshot for study details. Encounter for examination fo r normal comparison and control in clinical research program 06/09/2018 11/08/2021 Overview (06/26/2020): DO NOT DELETE - [facility] DETECT Study: Project # [id number], Community Integration Specialist: Kosta Valdovinos, MS, MPH. SUMMARY: Goal: Establish [...] contact study staff at ; after hours Community Integration Specialist via the [facility] fishing line winding machine operator . - Please contact study team before resolving/deleting from patients problem list. Study phone number: [phone]. Diagnosis changed due to Research Module. Go to Snapshot for study details. 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 inactive term jail current use of ant icoagulant therapy 02/16/2003 10/24/2014 Overview (12/09/2016): ICD-10 update of inactive term ABN THYROID FUNCT STUDY 05/05/200105/2001 Asthma, allergic 02/02/2001 10/24/2014 jail current use of ant icoagulant therapy 01/05/2001 10/24/2014 Overview (12/09/2016): ICD-10 update of inactive term CVA 10/24/2014 HYPOTHYROIDISM NOS 5 documented as of this encounter (statuses as of 02/23/2024) Immunizations Name Administration Dates Next Due COVID-19 mRNA, LNP-s, No Pre serve, 2-Dose Series (Moderna) 01/26/2021,06/12/2020,05/15/2020 COVID-19, mRNA, LNP-s, PF, B ooster, 100mcg/0.5mg (Moderna) 10/04/2021 Covid-19, Mrna, Lnp-s, Pf, B ivalent, 30 Mcg, IM, 12 yrs and above (Pfizer) 12/17/2021 Diptheria/Tetanus (Adult) 03/10/2004 PPD 12/11/2022 Pneumococcal Conjugate Vacc, 13 Valent (Prevnar) 10/24/2014 Pneumococcal Conjugate Vacci ne, 20-valent ([id number]) 09/13/2022 Season Influenza, Quad, PF, Adjuvanted, 65+ [...] 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 Not on file Not on f ile documented as of this encounter Plan of Treatment Upcoming Encounters Date Type Department Care Team (Late st Contact Info) Description 02/24/2024 6:15 AM EST Anticoagulation Centralized Clinical Pharmacy Services, Denise Palomares [address] [place] [address] [place] [address] [facility], [address] [place] [address] 09/15/2024 1:00 PM EDT Office Visit Family Practice [facility] [place] [address] [facility] [place] [address] Sander Smith, DO [address] [facility] [place] [address] Pending Results Name Type Priority Associated Diagnoses Date /Time PT INR Lab Routine History of CVA (cerebrovascular accident) 02/23/2024 10:48 AM EST TSH WITH FREE T4 IF INDICATED Lab Routine 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d 02/23/2024 10:48 AM EST Health Maintenance Due Date Last [...] thyroid documented in this encounter Care Teams Focuser Relationship Specialty Start Date End Date Sander Smith DO [address] [facility] [place] [address] PCP - General Family Medicine 05/04/18 documented as of this encounter
--- OUTSIDE RECORDS SUMMARY | 2024-05-02 20:22 | External Medical Summary | Summary of Care ---
Author Name Unknown Organization [facility] Address [address] [facility] [place] [address] Phone [phone] Care Team Providers Care Salesperson [employer] Name Role Phone Sander Smith DO Primary Care Provider [phone] Reason for Visit * Reason Comments Dosage Adjustment Via Phone (anticoag Cl inic) Encounter Details Date Type Department Care Team ([facility] st Contact Info) Description 12/02/2023 6:15 AM EDT Anticoagulation Central[facility] Services, Denise Palomares [address] [place] [address] [place] [address] [facility], [address] [place] [address] History of CVA (cerebrovascular accident)*; Anticoagulation management encounter; Warfarin anticoagulation Allergies Active Allergy Reactions Criticality Noted Date Comments Cat Dander 04/30/2017 No Known Drug Allergy 09/23/2001 documented as of this encounter (statuses as of 12/02/2023) Medications Medication Sig Dispensed Refills Start Date [...] as of this encounter (statuses as of 12/02/2023) Active Problems Problem Noted Date Diagnosed Date Warfarin anticoagulation 10/24/2014 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 d 10/24/2014 Other seasonal allergic rhinitis 10/24/2014 History of CVA (cerebrovascular accident) 2014 Mural thrombus of heart without [place] 02/18/2012 Anticoagulation management encounter 09/23/2001 Allergic rhinitis 02/02/2001 Aphasia, post-stroke 01/05/2001 documented as of this encounter (statuses as of 12/02/2023) Resolved Problems Problem Noted Date Diagnosed Date Resolved Date HTN, goal below 140/90 09/15/202309/14 Old [place] (myocardial infarction) 08/29/2020 08/29/2020 Encounter for examination fo r normal comparison and control in clinical research program 06/09/2018 10/11/2019 Overview: DO NOT DELETE [employer] DETECT Study: Project # [id number], Business Services Director: Espinoza Villatoro, PhD. SUMMARY: Goal: Establish test [...] contact study staff at ; after hours Business Services Director via the [facility] hospital nipple machine operator . Please contact study team before resolving/deleting from patients problem list. Study phone number: [phone]. Diagnosis changed due to Research Module. Go to Snapshot for study details. Encounter for examination fo r normal comparison and control in clinical research program 06/09/2018 11/08/2021 Overview: DO NOT DELETE - [employer] DETECT Study: Project # [id number], Business Services Director: Kosta Valdovinos, MS, MPH. SUMMARY: Goal: Establish [...] contact study staff at ; after hours Business Services Director via the [facility] hospital nipple machine operator . - Please contact study team before resolving/deleting from patients problem list. Study phone number: [phone]. Diagnosis changed due to Research Module. Go to Snapshot for study details. 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 01/05/2001 10/24/2014 Overview: ICD-10 update of inactive term CVA 10/24/2014 HYPOTHYROIDISM NOS 5 documented as of this encounter (statuses as of 12/02/2023) Immunizations Name Administration Dates Next Due COVID-19 mRNA, LNP-s, No Pre serve, 2-Dose Series (Moderna) 01/26/2021,06/12/2020,05/15/2020 COVID-19, mRNA, LNP-s, PF, B ooster, 100mcg/0.5mg (Moderna) 10/04/2021 Covid-19, Mrna, Lnp-s, Pf, B ivalent, 30 Mcg, IM, 12 yrs and above (Pfizer) 12/17/2021 Diptheria/Tetanus (Adult) 03/10/2004 PPD 12/11/2022 Pneumococcal Conjugate Vacc, 13 Valent (Prevnar) 10/24/2014 Pneumococcal Conjugate Vacci ne, 20-valent ([id number]) 09/13/2022 Season Influenza, Quad, PF, Adjuvanted, 65+ [...] as of this encounter Progress Notes * Anu Calvillo PHARM Tech - 12/02/2023 11:11 AM EDT Contacts Contact Date/Time Type Contact Phone/Fax 12/02/2023 11:09 AM EDT Phone (Outgoing) Kiara Pedroza (Self) [phone] (M) Spoke to Patient Subjective Patient Findings [...] communicated as noted by Pharmacist: Yes KAREN LOPEZ 12/02/2023, 11:11 AM * Brianne Xiong RPh - 12/02/2023 10:06 AM EDT Images from the original note were not included. Coumadin Clinic (region specific) Objective Current Warfarin Dose As of 12/02/2023 Warfarin maintenance plan: 2 mg (4 mg x 0.5) every Fri; 4 mg (4 mg x 1) all other days INR Result As of 12/02/2023 INR goal: 2.0-3.0 INR used for dosin.7 (12/01/2023) Assessment & Plan Warfarin Plan As of 12/02/2023 Full warfarin instructions: 12/01: 8 mg; Otherwise 2 mg every Fri; 4 mg all other days Next INR check: 12/29/2023 Repeat PT/INR in 4 week(s) Weekly dose: not changed Additional Dosing Information: Description [facility] 4 wk max INR check Tech to contact patient with dose instructions as noted. Brianne Xiong RPh 12/02/2023, 10:06 AM documented in this encounter Plan of Treatment Upcoming Encounters Date Type Department Care Team (Late st Contact Info) Description 09/15/2024 1:00 PM EDT Office Visit Family Practice [employer] [address] [place] [address] Sander Smith DO [address] [facility] [place] [address] Health Maintenance Due Date Last Done Comments [...] anticoagulants documented in this encounter Care Teams Salesperson [employer] Relationship Specialty Start Date End Date Sander Smith DO [address] [place] [address] PCP - General Family Medicine 05/04/18 documented as of this encounter
--- OUTSIDE RECORDS SUMMARY | 2024-05-02 20:22 | External Medical Summary ---
Author Name Unknown Address Unknown Organization [id number]:[facility]ORY [facility] [place] - [address] [facility] [address] Laboratory Report Ordering Provider Test Date Status JOSEFA VINSON 02/23/2024 10:48:35 Final Observation Date Value Abnormality Reference (Units ) Status TSH 02/23/2024 10:48:35 1.32 0.27-4.20 (uIU/mL) Final Performing Location [facility] - [address] [facility] [address]
--- OUTSIDE RECORDS SUMMARY | 2024-05-02 20:22 | External Medical Summary ---
Author Name Unknown Address Unknown Organization [id number]:LABORATORY [facility] [place] - [address] [facility] [address] Laboratory Report Ordering Provider Test Date Status JOSEFA VINSON 12/01/2023 10:54:25 Final Observation Date Value Abnormality Reference (Units ) Status TSH 12/01/2023 10:54:25 0.89 0.27-4.20 (uIU/mL) Final Performing Location LABORATORY [facility] - [address] [facility] [address]
--- NOTE | 2024-05-02 20:43 | Emergency Department Note ---
Impression & Plan Sepsis, Atrial fibrillation with RVR, Pneumonia ED Provider Note NAME: CLAUDIA STEIN AGE: 78 SEX: F : 1945 ARRIVES VIA: Ambulance INFORMANT: Patient ED PROVIDER(S): Aayush Lopez DO CHIEF COMPLAINT: Weakness and upper respiratory symptoms HPI: Patient is a 78-year-old female who presents to the ER for upper respiratory symptoms that started 4 weeks ago. She notes this started to improve and then within the past week got worse. She notes she feels overall weak and rundown. She tried to get out of bed earlier today and was unable to get up and she slid down to the ground. She did not hit her head. She denies any head or neck pain. No chest pain or belly pain. No dysuria, urgency, or frequency. No other exacerbating or remitting factors. She laid on the floor for several hours per EMS and was eventually brought in. ADDITIONAL HISTORY OBTAINED: Per HPI Chronic Medical/Social Conditions Affecting Care: Per HPI PAST MEDICAL HISTORY:See Below PAST SURGICAL HISTORY:See Below FAMILY HISTORY:See Below SOCIAL HISTORY:See Below HOME MEDICATIONS:See Below ALLERGIES:See Below VITALS:See Below PHYSICAL EXAMINATION: GENERAL: Sitting up in bed, alert, ill-appearing, disheveled EYE EXAM: normal conjunctiva. OROPHARYNX: Dry mucous membranes NECK: supple, no nuchal rigidity, no adenopathy, non-tender LUNGS: Diminished bilaterally. Normal chest wall mechanics HEART: no murmurs, S1 normal and S2 normal ABDOMEN: abdomen soft, non-tender, normo-active bowel sounds, no masses, no rebound or guarding. UPPER EXTREMITIES: upper extremities are grossly normal. LOWER EXTREMITIES: No pitting edema. NEURO EXAM: Normal sensorium, cranial nerves II-XII grossly intact, normal speech, no gross weakness of arms, no gross weakness of legs. MEDICAL DECISION MAKING: Patient is a 78-year-old female who presents to the ER for the above-stated complaint. IV was established and blood work was obtained. Labs show leukocytosis 21,000. No significant anemia BMP with mild hypokalemia at 3.2. Creatinine at 1. 2. Lactic acid was significantly elevated at 6. Troponin was elevated at 74. Pro-Jarod was elevated at 1.2. UA was unremarkable. Viral panel was negative. Chest x-ray with pneumonia. Patient upon arrival is tachycardic with a heart rate in the 180s to 190s. She was given a Cardizem drip and bolus. Once the chest x-ray was obtained it did appear as though she had a pneumonia. She was covered with IV Rocephin and azithromycin. She was given 2.5 L normal saline for more than 30 cc/kg for sepsis. Heart rate trended down and Cardizem drip was eventually stopped once heart rate trended down to the 80s and she started to drop her pressures after several hours. Initial goal was to have her heart rate into the 120s which were able to obtain with the drip and bolus and with the fluids assist with the remainder of the heart rate which it did. Lactate trended down to 3. Patient was updated bedside. Discussed with the hospitalist. Patient was admitted for further workup. Consults/Care Managements Discussions: Per [facility] Triage Nursing notes reviewed. Limited review of prior medical records performed Vital Signs: reviewed and remarkable for tachy Differential diagnosis: Cardiac ischemia, aortic dissection, pulmonary embolism, pneumothorax, pneumonia, pericarditis, myocarditis, esophageal rupture, GERD, cholecystitis, pancreatitis, musculoskeletal, as well as other pathologies. ER treatment provided: See below Diagnostics interpreted by me include EKG and cardiac monitoring as listed below: -Cardiac Monitoring: An order was placed for continuous cardiac monitoring. The monitor shows a rate of 170 with A-fib rhythm. -ECG: A-fib rate of 168 Normal axis No PVCs ST depressions in the inferior and lateral leads QTc 474 -Laboratory studies:Interpreted by me as stated above in MDM and shown below. Imaging studies: Xrays: As interpreted by me: Portable AP upright 1 view of the chest shows infiltrates at the base of the lungs CTs show: none Procedures:none Critical Care: I have personally spent 75 minutes of critical care time in the direct management of this patient. This includes bedside care, interpretation of diagnostic studies, and testing, discussion with consultants, patient, and family members, and other required patient management activities. This 75 minutes is in excess of all separately billable procedures. Past Med/Surg History Problem List (Updated 05/03/24 @ 01:20 by Aayush Lopez DO) Pneumonia (Acute) Atrial fibrillation with RVR (Acute) Sepsis (Acute) Social History Preferred Language: Yoruba Feels Safe at Home: Yes Allergies Allergies Allergy/AdvReac Type Severity Reaction Status Date / Time No Known Allergies Allergy Verified 04/22/02 15:56 CATS POLLEN Allergy Unknown Unknown Uncoded 05/02/24 20:43 Home Meds Home Medications Medication Instructions Recorded Confirmed levothyroxine 100 mcg tablet 100 mcg PO DAILYBB 05/02/24 05/02/24 loratadine 10 mg tablet 10 mg PO QAM PRN allergy season 05/02/24 05/02/24 warfarin 4 mg tablet 4 - 8 mg PO DAILY 05/02/24 05/02/24 Results & Data (ED) Vital Signs Vital Signs - 24 hr 05/02/24 20:12 05/02/24 20:26 05/02/24 21:48 Temperature 36.5 C Temperature Source Oral Pulse Rate 180 H 171 H 128 H Pulse Rate from SpO2 Sensor 108 H Pulse Rhythm Regular Pulse Strength Normal Respiratory Rate 20 34 H Respiratory Effort / Characteristics Non-Labored Spontaneous Respiratory Depth Normal Respiratory Pattern Regular Blood Pressure 132/99 98/59 L Blood Pressure Mean 110 72 Blood Pressure Position Lying Pulse Oximetry 94 92 Oxygen Delivery Method Room Air Sepsis Recent Fever Within 48 Hours No Sepsis New/Unexplained Change in Mental Status N/A Sepsis Action Taken by Nursing No Action Required 05/02/24 22:20 05/02/24 22:30 05/02/24 22:40 Temperature Temperature Source Pulse Rate Pulse Rate from SpO2 Sensor Pulse Rhythm Pulse Strength Respiratory Rate Respiratory Effort / Characteristics Respiratory Depth Respiratory Pattern Blood Pressure 104/63 107/68 107/54 L Blood Pressure Mean 84 76 76 Blood Pressure Position Pulse Oximetry Oxygen Delivery Method Sepsis Recent Fever Within 48 Hours Sepsis New/Unexplained Change in Mental Status Sepsis Action Taken by Nursing 05/02/24 22:50 05/02/24 23:00 05/02/24 23:00 Temperature Temperature Source Pulse Rate Pulse Rate from SpO2 Sensor Pulse Rhythm Pulse Strength Respiratory Rate Respiratory Effort / Characteristics Respiratory Depth Respiratory Pattern Blood Pressure 108/64 126/71 126/71 Blood Pressure Mean 71 75 75 Blood Pressure Position Pulse Oximetry Oxygen Delivery Method Sepsis Recent Fever Within 48 Hours Sepsis New/Unexplained Change in Mental Status Sepsis Action Taken by Nursing 05/02/24 23:10 05/02/24 23:20 05/02/24 23:30 Temperature Temperature Source Pulse Rate Pulse Rate from SpO2 Sensor Pulse Rhythm Pulse Strength Respiratory Rate Respiratory Effort / Characteristics Respiratory Depth Respiratory Pattern Blood Pressure 113/64 127/55 L 108/59 L Blood Pressure Mean 91 70 85 Blood Pressure Position Pulse Oximetry Oxygen Delivery Method Sepsis Recent Fever Within 48 Hours Sepsis New/Unexplained Change in Mental Status Sepsis Action Taken by Nursing 05/02/24 23:41 05/02/24 23:51 05/03/24 00:06 Temperature Temperature Source Pulse Rate 99 H 93 H Pulse Rate from SpO2 Sensor 91 H 97 H Pulse Rhythm Pulse Strength Respiratory Rate 30 H 25 H Respiratory Effort / Characteristics Respiratory Depth Respiratory Pattern Blood Pressure 110/44 L 154/131 H 112/68 Blood Pressure Mean 71 138 82 Blood Pressure Position Pulse Oximetry 94 89 L Oxygen Delivery Method Sepsis Recent Fever Within 48 Hours Sepsis New/Unexplained Change in Mental Status Sepsis Action Taken by Nursing 05/03/24 00:12 05/03/24 00:26 05/03/24 00:33 Temperature Temperature Source Pulse Rate 109 H 99 H 97 H Pulse Rate from SpO2 Sensor 94 H 83 Pulse Rhythm Pulse Strength Respiratory Rate 30 H 30 H Respiratory Effort / Characteristics Respiratory Depth Respiratory Pattern Blood Pressure 111/57 L 92/51 L Blood Pressure Mean 75 64 Blood Pressure Position Pulse Oximetry 94 95 Oxygen Delivery Method Sepsis Recent Fever Within 48 Hours Sepsis New/Unexplained Change in Mental Status Sepsis Action Taken by Nursing 05/03/24 00:40 05/03/24 00:51 05/03/24 01:03 Temperature Temperature Source Pulse Rate 83 78 Pulse Rate from SpO2 Sensor 74 94 H Pulse Rhythm Pulse Strength Respiratory Rate 28 H 28 H Respiratory Effort / Characteristics Respiratory Depth Respiratory Pattern Blood Pressure 87/49 L 84/60 L 83/50 L Blood Pressure Mean 61 68 61 Blood Pressure Position Pulse Oximetry 96 95 Oxygen Delivery Method Sepsis Recent Fever Within 48 Hours Sepsis New/Unexplained Change in Mental Status Sepsis Action Taken by Nursing 05/03/24 01:09 Temperature Temperature Source Pulse Rate 78 Pulse Rate from SpO2 Sensor 87 Pulse Rhythm Pulse Strength Respiratory Rate 24 Respiratory Effort / Characteristics Respiratory Depth Respiratory Pattern Blood Pressure 121/78 Blood Pressure Mean 92 Blood Pressure Position Pulse Oximetry 93 Oxygen Delivery Method Sepsis Recent Fever Within 48 Hours Sepsis New/Unexplained Change in Mental Status Sepsis Action Taken by Nursing Laboratory Data 05/02/24 20:34 05/02/24 20:34 Lab Results 05/02/24 05/02/24 05/02/24 Range/Units 20:34 20:52 22:25 WBC 21.12 H (4.8-10.8) K/ul RBC 4.45 (4.20-5.40) M/uL Hgb 12.7 (12.0-16.0) g/dl Hct 37.3 (37.0-47.0) % MCV 83.8 (80.0-100.0) fL MCH 28.5 (25.0-34.0) pg MCHC 34.0 (32.0-36.0) g/dL RDW Std Deviation 39.3 (36.4-46.3) fL RDW Coeff of David 12.9 (11.5-14.5) % Plt Count 512 H (130-400) K/uL MPV 10.3 (9.4-12.4) fL Immature Gran % (Auto) 2.7 % Neut % (Auto) 88.1 % Lymph % (Auto) 5.7 % Lanier % (Auto) 3.0 % Eos % (Auto) 0.2 % Baso % (Auto) 0.3 % Neut # (Auto) 18.60 H (1.40-6.50) K/uL Lymph # (Auto) 1.21 (1.20-3.40) K/uL Lanier # (Auto) 0.64 H (0.11-0.59) K/uL Eos # (Auto) 0.05 (0.00-0.50) K/uL Baso # (Auto) 0.06 (0.00-0.20) K/uL Immature Gran # (Auto) 0.56 H (0.01-0.20) K/uL Absolute Nucleated RBC 0.02 (0.00-0.12) K/uL Nucleated RBC % (auto) 0.1 % Toxic Granulation 1+ Polychromasia 1+ Echinocytes 1+ PT Cancelled Cancelled INR Cancelled Cancelled Sodium 138 (136-145) mmol/L Potassium 3.2 L (3.5-5.1) mmol/L Chloride 100 (98-107) mmol/L Carbon Dioxide 25 (21-32) mmol/L Anion Gap 13 H (3-11) BUN 37 H (6-23) mg/dl Creatinine 1.24 H (0.6-1.2) mg/dl Est Cr Clr Drug Dosing 36.9 ml/min eGFR 44.82 BUN/Creatinine Ratio 29.8 H (10-20) Glucose 179 H (70-99(Fasting)) mg/dl Lactate 6.0 H* (0.4-2.0) mmol/L Calcium 11.2 H (8.6-10.3) mg/dl Magnesium 1.8 (1.7-2.4) mg/dl Total Bilirubin 0.7 (0.2-1.0) mg/dl AST 31 (13-39) U/L ALT 25 (7-52) U/L Alkaline Phosphatase 126 H (34-104) U/L Total Creatine Kinase 637 H (26-192) U/L Troponin I High Sens 76.9 H* (0-14) pg/ml Total Protein 7.2 (6.0-8.3) gm/dl Albumin 3.1 L (3.4-5.0) gm/dl Globulin 4.1 H (2.5-4.0) gm/dl Albumin/Globulin Ratio 0.8 L (0.9-2) Lipase 17 (11-82) U/L Procalcitonin 1.22 H (0-0.5) ng/ml Urine Color Urine Appearance (Clear) Urine pH (4.5-7.5) Ur Specific [place] (1.000-1.030) Urine Protein (Negative) Urine Glucose (UA) (Negative) Urine Ketones (Negative) Urine Blood (Negative) Urine Nitrite (Negative) Urine Bilirubin (Negative) Urine Urobilinogen (Negative) Ur Leukocyte Esterase (Negative) Urine WBC (Auto) (0-5) /hpf Urine RBC (Auto) (0-2) /hpf U Hyaline Cast (Auto) (0-2) /lpf U Epithel Cells (Auto) (0-2) /hpf Urine Bacteria (Auto) (None Seen) Calcium Oxalate Crystal (None Prsent) Hyaline Casts (None Presnt) /lpf Granular Casts (None Prsent) /lpf Adenovirus (PCR) Not Detected (NotDetected) B. pertussis DNA (PCR) Not Detected (NotDetected) B.parapertussis DNA PCR Not Detected (NotDetected) C. pneumoniae DNA (PCR) Not Detected (NotDetected) Coronavirus OC43 (PCR) Not Detected (NotDetected) Coronavirus HKU1 (PCR) Not Detected (NotDetected) Coronavirus 229E (PCR) Not Detected (NotDetected) SARS-CoV-2 (PCR) Not Detected (NotDetected) Coronavirus NL63 (PCR) Not Detected (NotDetected) Human Metapneumovir PCR Not Detected (NotDetected) Influenza Type A (PCR) Not Detected (NotDetected) Influenza Type B (PCR) Not Detected (NotDetected) M. pneumoniae (PCR) Not Detected (NotDetected) Parainfluenza 1 (PCR) Not Detected (NotDetected) Parainfluenza 2 (PCR) Not Detected (NotDetected) Parainfluenza 3 (PCR) Not Detected (NotDetected) Parainfluenza 4 (PCR) Not Detected (NotDetected) RSV (PCR) Not Detected (NotDetected) Entero/Rhino (PCR) Not Detected (NotDetected) 05/02/24 05/02/24 05/03/24 Range/Units 22:26 22:28 00:07 WBC (4.8-10.8) K/ul RBC (4.20-5.40) M/uL Hgb (12.0-16.0) g/dl Hct (37.0-47.0) % MCV (80.0-100.0) fL MCH (25.0-34.0) pg MCHC (32.0-36.0) g/dL RDW Std Deviation (36.4-46.3) fL RDW Coeff of David (11.5-14.5) % Plt Count (130-400) K/uL MPV (9.4-12.4) fL Immature Gran % (Auto) % Neut % (Auto) % Lymph % (Auto) % Lanier % (Auto) % Eos % (Auto) % Baso % (Auto) % Neut # (Auto) (1.40-6.50) K/uL Lymph # (Auto) (1.20-3.40) K/uL Lanier # (Auto) (0.11-0.59) K/uL Eos # (Auto) (0.00-0.50) K/uL Baso # (Auto) (0.00-0.20) K/uL Immature Gran # (Auto) (0.01-0.20) K/uL Absolute Nucleated RBC (0.00-0.12) K/uL Nucleated RBC % (auto) % Toxic Granulation Polychromasia Echinocytes PT INR Sodium (136-145) mmol/L Potassium (3.5-5.1) mmol/L Chloride (98-107) mmol/L Carbon Dioxide (21-32) mmol/L Anion Gap (3-11) BUN (6-23) mg/dl Creatinine (0.6-1.2) mg/dl Est Cr Clr Drug Dosing ml/min eGFR BUN/Creatinine Ratio (10-20) Glucose (70-99(Fasting)) mg/dl Lactate 3.7 H* (0.4-2.0) mmol/L Calcium (8.6-10.3) mg/dl Magnesium (1.7-2.4) mg/dl Total Bilirubin (0.2-1.0) mg/dl AST (13-39) U/L ALT (7-52) U/L Alkaline Phosphatase (34-104) U/L Total Creatine Kinase (26-192) U/L Troponin I High Sens 74.1 H* (0-14) pg/ml Total Protein (6.0-8.3) gm/dl Albumin (3.4-5.0) gm/dl Globulin (2.5-4.0) gm/dl Albumin/Globulin Ratio (0.9-2) Lipase (11-82) U/L Procalcitonin (0-0.5) ng/ml Urine Color Dark Yellow Urine Appearance Clear (Clear) Urine pH 6.0 (4.5-7.5) Ur Specific Bristol 1.029 (1.000-1.030) Urine Protein 2+ H (Negative) Urine Glucose (UA) Negative (Negative) Urine Ketones Trace H (Negative) Urine Blood Trace H (Negative) Urine Nitrite Negative (Negative) Urine Bilirubin Negative (Negative) Urine Urobilinogen Negative (Negative) Ur Leukocyte Esterase Negative (Negative) Urine WBC (Auto) 0-5 (0-5) /hpf Urine RBC (Auto) 0-2 (0-2) /hpf U Hyaline Cast (Auto) 11-20 H (0-2) /lpf U Epithel Cells (Auto) 0-2 (0-2) /hpf Urine Bacteria (Auto) None Seen (None Seen) Calcium Oxalate Crystal Present A (None Prsent) Hyaline Casts Present A (None Presnt) /lpf Granular Casts Present A (None Prsent) /lpf Adenovirus (PCR) (NotDetected) B. pertussis DNA (PCR) (NotDetected) B.parapertussis DNA PCR (NotDetected) C. pneumoniae DNA (PCR) (NotDetected) Coronavirus OC43 (PCR) (NotDetected) Coronavirus HKU1 (PCR) (NotDetected) Coronavirus 229E (PCR) (NotDetected) SARS-CoV-2 (PCR) (NotDetected) Coronavirus NL63 (PCR) (NotDetected) Human Metapneumovir PCR (NotDetected) Influenza Type A (PCR) (NotDetected) Influenza Type B (PCR) (NotDetected) M. pneumoniae (PCR) (NotDetected) Parainfluenza 1 (PCR) (NotDetected) Parainfluenza 2 (PCR) (NotDetected) Parainfluenza 3 (PCR) (NotDetected) Parainfluenza 4 (PCR) (NotDetected) RSV (PCR) (NotDetected) Entero/Rhino (PCR) (NotDetected) Administered Medications Potassium Chloride 20 meq/ (Lactated Ringer's) 1,010 mls @ 500 mls/hr IV .Q2H2M ONE Stop: 05/03/24 02:01 Last Admin: 05/03/24 01:02 Dose: 500 mls/hr Documented By: KIANNA Discontinued Medications Diltiazem HCl (Diltiazem Hcl 5 Mg/Ml 5 Ml Vial) 10 mg IV NOW STA Stop: 05/02/24 20:38 Last Admin: 05/02/24 20:56 Dose: 10 mg Documented By: KIANNA Co-signed By: GURVINDER Diltiazem HCl 125 mg/ Dextrose 125 mls @ 5 mls/hr IV .Q24H AMILCAR; Protocol Stop: 06/01/24 20:44 Last Titration: 05/03/24 00:57 Dose: Infused Documented By: KIANNA Co-signed By: Titration: 05/02/24 21:16 Dose: 10 mg/hr, 10 mls/hr Documented By: KIANNA Co-signed By: GURVINDER Admin: 05/02/24 21:06 Dose: 5 mg/hr, 5 mls/hr Documented By: KIANNA Co-signed By: DARBY Sodium Chloride (Nss) 1,000 mls @ 999 mls/hr IV .Q1H1M ONE Stop: 05/02/24 22:16 Last Infusion: 05/02/24 22:50 Dose: Infused Documented By: Admin: 05/02/24 21:43 Dose: 999 mls/hr Documented By: KIANNA Ceftriaxone Sodium (Rocephin) 2,000 mg in 50 mls @ 100 mls/hr IV NOW STA Stop: 05/02/24 21:45 Last Infusion: 05/02/24 22:14 Dose: Infused Documented By: Admin: 05/02/24 21:43 Dose: 100 mls/hr Documented By: KIANNA Sodium Chloride (Nss) 1,000 mls @ 999 mls/hr IV .Q1H1M ONE Stop: 05/02/24 22:48 Last Infusion: 05/03/24 00:09 Dose: Infused Documented By: Admin: 05/02/24 23:04 Dose: 999 mls/hr Documented By: KIANNA Sodium Chloride (Nss) 500 mls @ 999 mls/hr IV .Q31M ONE Stop: 05/02/24 22:24 Last Admin: 05/03/24 00:00 Dose: Not Given Documented By: KIANNA Azithromycin 500 mg/ Sodium (Chloride) 255 mls @ 127.5 mls/hr IV NOW ONE Stop: 05/02/24 23:59 Last Infusion: 05/03/24 01:07 Dose: Infused Documented By: Admin: 05/02/24 23:04 Dose: 127.5 mls/hr Documented By: KIANNA Ampicillin Sodium/Sulbactam Sodium (Unasyn) 3,000 mg in 100 mls @ 200 mls/hr IV NOW STA Stop: 05/02/24 22:59 Last Infusion: 05/02/24 23:23 Dose: Infused Documented By: Admin: 05/02/24 22:48 Dose: 200 mls/hr Documented By: KIANNA Miscellaneous (Stat Iv Infusion Titration Per Protocol) 1 each N/A NOW STA Stop: 05/02/24 20:38 Last Admin: 05/02/24 22:50 Dose: Not Given Documented By: KIANNA Potassium Chloride (Potassium Chloride Crtab 20 Meq Tabcr) 40 meq PO NOW STA Stop: 05/02/24 22:33 Last Admin: 05/02/24 23:25 Dose: Not Given Documented By: KIANNA Potassium Chloride (Potassium Chloride Pwd 20 Meq Pack) 40 meq PO NOW STA Stop: 05/02/24 23:47 Last Admin: 05/03/24 01:02 Dose: 40 meq Documented By: KIANNA Imaging Data Radiologist's Impression: Chest X-Ray 05/02/24 20:19 Exam(s): XR CXR 1 VIEW EXAM: XR Chest, 1 View CLINICAL HISTORY: Reason for exam: Chest pain, nonspecific. TECHNIQUE: Frontal view of the chest. COMPARISON: No relevant prior studies available. FINDINGS: Lungs: Patchy infiltrates are seen in the left mid and left lower lung zone. Pleural space: Unremarkable. No pneumothorax. Heart: Unremarkable. No cardiomegaly. Mediastinum: Unremarkable. Normal mediastinal contour. Bones/joints: Unremarkable. No acute fracture. IMPRESSION: Patchy infiltrates in the left mid and left lower lung zones, consistent with aspiration or pneumonia Electronically signed by: Oliver Bryant MD 05/02/24 21:31 PM Discharge Plan Visit Data Chief Complaint: Weakness Stated Complaint: WEAKNESS, ON FLOOR SINCE LAST NIGHT ED Provider: Aayush Lopez Discharge Problem: Sepsis, Atrial fibrillation with RVR, Pneumonia Forms Stand Alone Forms: [employer] Prescriptions Prescriptions: No Action warfarin 4 mg tablet 4 - 8 mg PO DAILY levothyroxine 100 mcg tablet 100 mcg PO DAILYBB loratadine 10 mg Tablet 10 mg PO QAM PRN (Reason: allergy season) Referrals Referrals: Sander Smith DO [Primary Care Provider] - Discharge Problem: Sepsis Qualifiers: Sepsis type: sepsis due to unspecified organism Sepsis acute organ dysfunction status: unspecified Qualified Code(s): A41.9 - Sepsis, unspecified organism Pneumonia Qualifiers: Pneumonia type: due to unspecified organism Laterality: unspecified laterality Lung location: unspecified part of lung Qualified Code(s): J18.9 - Pneumonia, unspecified organism
[2024-05-02] MEDS: dilTIAZem HCl 5 MG/ML 5 ML VIAL IV STA (20:56)
[2024-05-02] MEDS: dilTIAZem HCL 125 MG in DEXTROSE 5% 100 ML IV SCH (21:06)
[2024-05-02 21:10] LABS: Hematocrit (blood only) 37.3 % (37.0-47.0); Hemoglobin 12.7 g/dl (12.0-16.0); Mean Corpuscular Hemoglobin 28.5 pg (25.0-34.0); Mean Corpuscular Volume 83.8 fL (80.0-100.0); Mean Platelet Volume 10.3 fL (9.4-12.4); Nucleated RBC # (auto) 0.02 K/uL (0.00-0.12); Nucleated RBC % (auto) 0.1 %; Platelet Count 512 K/uL (130-400); RDW Coefficient of Variation 12.9 % (11.5-14.5); RDW Standard Deviation 39.3 fL (36.4-46.3); Red Blood Count 4.45 M/uL (4.20-5.40); White Blood Count 21.12 K/ul (4.8-10.8)
[2024-05-02 21:26] LABS: Albumin Globulin Ratio 0.8 (0.9-2); Albumin Level 3.1 gm/dl (3.4-5.0); BUN Creatinine Ratio 29.8 (10-20); Bilirubin,Total 0.7 mg/dl (0.2-1.0); Calcium 11.2 mg/dl (8.6-10.3); Creatinine Clr Calc Pharmacy 36.9 ml/min; Globulin 4.1 gm/dl (2.5-4.0); Potassium 3.2 mmol/L (3.5-5.1); Total Protein 7.2 gm/dl (6.0-8.3)
--- NOTE | 2024-05-02 21:32 | XRay Report ---
Exam(s): XR CXR 1 VIEW EXAM: XR Chest, 1 View CLINICAL HISTORY: Reason for exam: Chest pain, nonspecific. TECHNIQUE: Frontal view of the chest. COMPARISON: No relevant prior studies available. FINDINGS: Lungs: Patchy infiltrates are seen in the left mid and left lower lung zone. Pleural space: Unremarkable. No pneumothorax. Heart: Unremarkable. No cardiomegaly. Mediastinum: Unremarkable. Normal mediastinal contour. Bones/joints: Unremarkable. No acute fracture. IMPRESSION: Patchy infiltrates in the left mid and left lower lung zones, consistent with aspiration or pneumonia Electronically signed by: Oliver Bryant MD 05/02/24 21:31 PM
[2024-05-02 21:43] LABS: Adenovirus PCR Not Detected (NotDetected); Bordetella parapertussis PCR Not Detected (NotDetected); Bordetella pertussis PCR Not Detected (NotDetected); Chlamydia pneumoniae PCR Not Detected (NotDetected); Coronavirus 229E PCR Not Detected (NotDetected); Coronavirus CoV-2 (COVID19)PCR Not Detected (NotDetected); Coronavirus HKU1 PCR Not Detected (NotDetected); Coronavirus NL63 PCR Not Detected (NotDetected); Coronavirus OC43PCR Not Detected (NotDetected); Human Metapneumovirus PCR Not Detected (NotDetected); Influenza A PCR Not Detected (NotDetected); Influenza B PCR Not Detected (NotDetected); Mycoplasma pneumoniae PCR Not Detected (NotDetected); Parainfluenza Virus 1 PCR Not Detected (NotDetected); Parainfluenza Virus 2 PCR Not Detected (NotDetected); Parainfluenza Virus 3 PCR Not Detected (NotDetected); Parainfluenza Virus 4 PCR Not Detected (NotDetected); Respiratory Syncytial VirusPCR Not Detected (NotDetected); Rhinovirus/Enterovirus PCR Not Detected (NotDetected)
[2024-05-02] MEDS: cefTRIAXone SODIUM 2,000 MG/50 ML BAG IV STA (21:43)
[2024-05-02] MEDS: SODIUM CHLORIDE 0.9% 1,000 ML IV ONE ×2 (21:43→23:04)
[2024-05-02 21:49] LABS: Troponin I High Sensitivity 76.9 pg/ml (0-14)
[2024-05-02] MEDS ORDERED: AZITHROMYCIN 500 MG VIAL IV STA (21:49)
[2024-05-02 22:19] LABS: Basophils # (auto) 0.06 K/uL (0.00-0.20); Basophils % (auto) 0.3 %; Echinocytes 1+; Eosinophils # (auto) 0.05 K/uL (0.00-0.50); Eosinophils % (auto) 0.2 %; Immature Granulocytes # (auto) 0.56 K/uL (0.01-0.20); Immature Granulocytes % (auto) 2.7 %; Lymphocytes # (auto) 1.21 K/uL (1.20-3.40); Lymphocytes % (auto) 5.7 %; Monocytes # (auto) 0.64 K/uL (0.11-0.59); Neutrophils % (auto) 88.1 %; Polychromasia 1+; Toxic Granulation 1+
[2024-05-02] MEDS: AMPICILLIN/SULBACTAM SOD 3,000 MG/100 ML BAG IV STA (22:48)
[2024-05-02] MEDS: STAT IV Infusion **Titration per Protocol STA (22:50)
[2024-05-02 22:51] LABS: Magnesium 1.8 mg/dl (1.7-2.4)
[2024-05-02] MEDS: AZITHROMYCIN 500 MG in SODIUM CHLORIDE 0.9% 250 ML IV ONE (23:04)
[2024-05-02] MEDS: POTASSIUM CHLORIDE CRTAB 20 MEQ TABCR PO STA (23:05)
[2024-05-02 23:16] LABS: Troponin I High Sensitivity 74.1 pg/ml (0-14)
[2024-05-03] MEDS: SODIUM CHLORIDE 0.9% 500 ML IV ONE
[2024-05-03] MEDS: POTASSIUM CHLORIDE PWD 20 MEQ PACK PO STA ×2 (01:02→03:56)
[2024-05-03] MEDS: POTASSIUM CHLORIDE 20 MEQ in LACTATED RINGER'S 1,000 ML IV ONE (01:02)
[2024-05-03 01:09] LABS: Appearance Urine Clear (Clear); Bacteria Urine Automated None Seen (None Seen); Bilirubin Urine Negative (Negative); Blood Urine Trace (Negative); Calcium Oxalate Crystals Urine Present (None Prsent); Color Urine Dark Yellow; Epithelial Cell Urine Auto 0-2 /hpf (0-2); Glucose Urine UA Negative (Negative); Granular Casts Urine Present /lpf (None Prsent); Hyaline Casts Urine Present /lpf (None Presnt); Ketones Urine Trace (Negative); Leukocyte Esterase Urine Negative (Negative); Nitrite Urine Negative (Negative); Protein Urine 2+ (Negative); RBC Urine Automated 0-2 /hpf (0-2); Specific Gravity Urine 1.029 (1.000-1.030); Urobilinogen Urine Negative (Negative); WBC Urine Automated 0-5 /hpf (0-5)
[2024-05-03 01:43] LABS: Phosphorus 2.3 mg/dl (2.5-4.9)
--- NOTE | 2024-05-03 01:54 | History & Physical Report ---
Date of Service May 03, 2024 Assessment & Plan (1) Severe sepsis: Plan: Severe sepsis SIRS plus lactic acidosis secondary to possible aspiration pneumonia New onset A-fib secondary to illness History cardioembolic CVA, INR supratherapeutic without overt signs of bleed. 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 Coumadin INR goal between 2 and 3 Full code Patient son requesting updates providers. Mr. Dominick Pedroza, contact #[phone]. Total critical care time was 40 minutes. Text document was generated using [employer] voice recognition software. It may contain grammatical or spelling errors. Kindly contact undersigned for clarification of any documentation item in question. History of Present Illness Chief Complaint: Weakness, cough Primary Care Provider: Sander Smith, History obtained from patient, family, and records. Medical history significant for hypertension, embolic CVA on Coumadin, bronchial asthma, hypothyroidism Last [facility] confinement 2000 for cardioembolic CVA presenting as aphasia. ANGIE showed small flap of tissue adjacent interatrial septum which may be potential source of thrombus formation and cardioembolic stroke. Patient discharged on Coumadin. Patient not well the last few weeks. Flulike symptoms with transient watery diarrhea symptoms. Cough symptoms noted on water/food intake. Poor appetite. Denies headache symptoms. Patient increasingly weak yesterday. She slid from her bed and had trouble getting up. Patient may have been on the floor for more than 12 hours as per her account. Denies head trauma/syncope/LOC. Denies chest pain. Patient complaining of some shortness of breath. Patient brother found patient on the floor but he was too weak to help her up. Patient son summoned to patient's home. Patient noted to be in rapid A-fib upon arrival at the ER. IV Cardizem infusion and ceftriaxone administered at the ER. SBP 80s later noted at the ER. 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 Allergies Allergy/AdvReac Type Severity Reaction Status Date / Time cat dander Allergy Unknown Verified 05/03/24 02:26 grass pollen Allergy Unknown Verified 05/03/24 02:26 tree and shrub pollen Allergy Unknown Verified 05/03/24 02:26 Home Medications Medication Instructions Recorded Confirmed Type levothyroxine 100 mcg tablet 100 mcg PO DAILYBB 05/02/24 05/02/24 History loratadine 10 mg tablet 10 mg PO QAM PRN allergy season 05/02/24 05/02/24 History warfarin 4 mg tablet 4 - 8 mg PO DAILY 05/02/24 05/02/24 History Past Med/Surg History Problem List Severe sepsis Pneumonia (Acute) Atrial fibrillation with RVR (Acute) Sepsis (Acute) Social History Smoking Status: Never smoker Hx Alcohol Use: No Hx Substance Use: No Preferred Language: Japanese Communication Ability: Effective 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: No Beliefs That Will Affect Care: None Current Living Situation: Family Other Information That Helps Us Care for You: No Feels Safe at Home: Yes Safety Concerns: Feels Safe At This Time Review of Systems Review of Systems: As per HPI, all other systems reviewed and negative Physical Exam Physical Exam: GENERAL: Comfortable, mild dysarthria (chronic as per family), no respiratory distress SKIN: Normal color, warm HEENT: [place] palpebral conjunctivae, no ptosis, dry buccal mucosa NECK : Supple, no tenderness CHEST : Decreased breath sounds, no tenderness HEART : Irregular, no obvious murmurs ABDOMEN: Some distention, nontender EXTREMITIES : No LE swelling/tenderness, palpable pulses, no other conspicuous deformities noted NEUROLOGIC : Coherent, no facial asymmetry, chronic dysarthria, gait and stance not assessed Results & Data Results & Data Vital Signs (Past 12 Hours) Vital Signs Temp Pulse Resp BP Pulse Ox O2 Del Method 05/03/24 01:09 78 24 121/78 93 05/03/24 01:03 78 28 H 83/50 L 95 05/03/24 00:51 83 28 H 84/60 L 96 05/03/24 00:40 87/49 L 05/03/24 00:33 97 H 30 H 92/51 L 95 05/03/24 00:26 99 H 05/03/24 00:12 109 H 30 H 111/57 L 94 05/03/24 00:06 93 H 25 H 112/68 89 L 05/02/24 23:51 99 H 30 H 154/131 H 94 05/02/24 23:41 110/44 L 05/02/24 23:30 108/59 L 05/02/24 23:20 127/55 L 05/02/24 23:10 113/64 05/02/24 23:00 126/71 05/02/24 23:00 126/71 05/02/24 22:50 108/64 05/02/24 22:40 107/54 L 05/02/24 22:30 107/68 05/02/24 22:20 104/63 05/02/24 21:48 128 H 34 H 98/59 L 92 05/02/24 20:26 171 H 05/02/24 20:12 36.5 C 180 H 20 132/99 94 Room Air Laboratory Results Laboratory Results WBC 21.12 K/ul (4.8-10.8) H 05/02/24 20:34 RBC 4.45 M/uL (4.20-5.40) 05/02/24 20:34 Hgb 12.7 g/dl (12.0-16.0) 05/02/24 20:34 Hct 37.3 % (37.0-47.0) 05/02/24 20:34 MCV 83.8 fL (80.0-100.0) 05/02/24 20:34 MCH 28.5 pg (25.0-34.0) 05/02/24 20:34 MCHC 34.0 g/dL (32.0-36.0) 05/02/24 20:34 RDW Std Deviation 39.3 fL (36.4-46.3) 05/02/24 20:34 RDW Coeff of David 12.9 % (11.5-14.5) 05/02/24 20:34 Plt Count 512 K/uL (130-400) H 05/02/24 20:34 MPV 10.3 fL (9.4-12.4) 05/02/24 20:34 Immature Gran % (Auto) 2.7 % 05/02/24 20:34 Neut % (Auto) 88.1 % 05/02/24:34 Lymph % (Auto) 5.7 % 05/02/24 20:34 [place] % (Auto) 3.0 % 05/02/24 20:34 Eos % (Auto) 0.2 % 05/02/24 20:34 Baso % (Auto) 0.3 % 05/02/24 20:34 Neut # (Auto) 18.60 K/uL (1.40-6.50) H 05/02/24 20:34 Lymph # (Auto) 1.21 K/uL (1.20-3.40) 05/02/24 20:34 [place] # (Auto) 0.64 K/uL (0.11-0.59) H 05/02/24 20:34 Eos # (Auto) 0.05 K/uL (0.00-0.50) 05/02/24 20:34 Baso # (Auto) 0.06 K/uL (0.00-0.20) 05/02/24:34 Immature Gran # (Auto) 0.56 K/uL (0.01-0.20) H 05/02/24 20:34 Absolute Nucleated RBC 0.02 K/uL (0.00-0.12) 05/02/24:34 Nucleated RBC % (auto) 0.1 % 05/02/24:34 Toxic Granulation 1+ 05/02/24 20:34 Polychromasia 1+ 05/02/24:34 Echinocytes 1+ 05/02/24 20:34 PT Cancelled 05/02/24 22:25 INR Cancelled 05/02/24 22:25 Sodium 138 mmol/L (136-145) 05/02/24 20:34 Potassium 3.2 mmol/L (3.5-5.1) L 05/02/24:34 Chloride 100 mmol/L (98-107) 05/02/24: Carbon Dioxide 25 mmol/L (21-32) 05/02/24 20:34 Anion Gap 13 (3-11) H 05/02/24 20:34 BUN 37 mg/dl (6-23) H 05/02/24 20:34 Creatinine 1.24 mg/dl (0.6-1.2) H 05/02/24 20:34 Est Cr Clr Drug Dosing 36.9 ml/min 05/02/24 20:34 eGFR 44.82 05/02/24 20:34 BUN/Creatinine Ratio 29.8 (10-20) H 05/02/24 20:34 Glucose 179 mg/dl (70-99(Fasting)) H 05/02/24 20:34 Lactate 3.7 mmol/L (0.4-2.0) H* 05/02/24 22:28 Calcium 11.2 mg/dl (8.6-10.3) H 05/02/24 20:34 Phosphorus 2.3 mg/dl (2.5-4.9) L 05/02/24 22:26 Magnesium 1.8 mg/dl (1.7-2.4) 05/02/24 20:34 Total Bilirubin 0.7 mg/dl (0.2-1.0) 05/02/24 20:34 AST 31 U/L (13-39) 05/02/24 20:34 ALT 25 U/L (7-52) 05/02/24 20:34 Alkaline Phosphatase 126 U/L (34-104) H 05/02/24 20:34 Total Creatine Kinase 637 U/L (26-192) H 05/02/24 20:34 Troponin I High Sens 74.1 pg/ml (0-14) H* 05/02/24 22:26 Total Protein 7.2 gm/dl (6.0-8.3) 05/02/24 20:34 Albumin 3.1 gm/dl (3.4-5.0) L 05/02/24 20:34 Globulin 4.1 gm/dl (2.5-4.0) H 05/02/24 20:34 Albumin/Globulin Ratio 0.8 (0.9-2) L 05/02/24 20:34 Lipase 17 U/L (11-82) 05/02/24 20:34 Procalcitonin 1.22 ng/ml (0-0.5) H 05/02/24 20:34 Urine Color Dark Yellow 05/03/24 00:07 Urine Appearance Clear (Clear) 05/03/24 00:07 Urine pH 6.0 (4.5-7.5) 05/03/24 00:07 Ur Specific [place] 1.029 (1.000-1.030) 05/03/24 00:07 Urine Protein 2+ (Negative) H 05/03/24 00:07 Urine Glucose (UA) Negative (Negative) 05/03/24 00:07 Urine Ketones Trace (Negative) H 05/03/24 00:07 Urine Blood Trace (Negative) H 05/03/24 00:07 Urine Nitrite Negative (Negative) 05/03/24 00:07 Urine Bilirubin Negative (Negative) 05/03/24 00:07 Urine Urobilinogen Negative (Negative) 05/03/24 00:07 Ur Leukocyte Esterase Negative (Negative) 05/03/24 00:07 Urine WBC (Auto) 0-5 /hpf (0-5) 05/03/24 00:07 Urine RBC (Auto) 0-2 /hpf (0-2) 05/03/24 00:07 U Hyaline Cast (Auto) 11-20 /lpf (0-2) H 05/03/24 00:07 U Epithel Cells (Auto) 0-2 /hpf (0-2) 05/03/24 00:07 Urine Bacteria (Auto) None Seen (None Seen) 05/03/24 00:07 Calcium Oxalate Crystal Present (None Prsent) A 05/03/24 00:07 Hyaline Casts Present /lpf (None Presnt) A 05/03/24 00:07 Granular Casts Present /lpf (None Prsent) A 05/03/24 00:07 Adenovirus (PCR) Not Detected (NotDetected) 05/02/24 20:34 B. pertussis DNA (PCR) Not Detected (NotDetected) 05/02/24 20:34 B.parapertussis DNA PCR Not Detected (NotDetected) 05/02/24 20:34 C. pneumoniae DNA (PCR) Not Detected (NotDetected) 05/02/24 20:34 Coronavirus OC43 (PCR) Not Detected (NotDetected) 05/02/24 20:34 Coronavirus HKU1 (PCR) Not Detected (NotDetected) 05/02/24 20:34 Coronavirus 229E (PCR) Not Detected (NotDetected) 05/02/24 20:34 SARS-CoV-2 (PCR) Not Detected (NotDetected) 05/02/24 20:34 Coronavirus NL63 (PCR) Not Detected (NotDetected) 05/02/24 20:34 Human Metapneumovir PCR Not Detected (NotDetected) 05/02/24 20:34 Influenza Type A (PCR) Not Detected (NotDetected) 05/02/24 20:34 Influenza Type B (PCR) Not Detected (NotDetected) 05/02/24 20:34 M. pneumoniae (PCR) Not Detected (NotDetected) 05/02/24 20:34 Parainfluenza 1 (PCR) Not Detected (NotDetected) 05/02/24 20:34 Parainfluenza 2 (PCR) Not Detected (NotDetected) 05/02/24 20:34 Parainfluenza 3 (PCR) Not Detected (NotDetected) 05/02/24 20:34 Parainfluenza 4 (PCR) Not Detected (NotDetected) 05/02/24 20:34 RSV (PCR) Not Detected (NotDetected) 05/02/24 20:34 Entero/Rhino (PCR) Not Detected (NotDetected) 05/02/24 20:34 Impressions Chest X-Ray 05/02/24 20:19 Exam(s): XR CXR 1 VIEW EXAM: XR Chest, 1 View CLINICAL HISTORY: Reason for exam: Chest pain, nonspecific. TECHNIQUE: Frontal view of the chest. COMPARISON: No relevant prior studies available. FINDINGS: Lungs: Patchy infiltrates are seen in the left mid and left lower lung zone. Pleural space: Unremarkable. No pneumothorax. Heart: Unremarkable. No cardiomegaly. Mediastinum: Unremarkable. Normal mediastinal contour. Bones/joints: Unremarkable. No acute fracture. IMPRESSION: Patchy infiltrates in the left mid and left lower lung zones, consistent with aspiration or pneumonia Electronically signed by: Oliver Bryant MD 05/02/24 21:31 PM Diagnostic Findings EKG as per my interpretation : rate 170, A-fib, normal axis, ST depression anterolateral leads
[2024-05-03 01:59] LABS: Thyroid Stimulating Hormone 1.01 uIu/ml (0.300-4.500)
[2024-05-03] MEDS ORDERED: LORATADINE 10 MG TAB PO PRN (02:02)
[2024-05-03 02:15] LABS: Prothrombin Time > 90.0 Seconds (9.0-12.0)
[2024-05-03 02:17] LABS: INR > 10.0 (0.9-1.1)
[2024-05-03] MEDS: MAGNESIUM SULFATE / D5W 1 GM/100 ML BAG IV ONE (02:48)
[2024-05-03] MEDS ORDERED: ACETAMINOPHEN 325 MG TAB PO PRN (03:55)
[2024-05-03] MEDS: NSS + 20MEQ KCL 20 MEQ/1,000 ML BAG IV ONE (03:56)
[2024-05-03 04:31] LABS: Hematocrit (blood only) 28.3 % (37.0-47.0); Hemoglobin 9.6 g/dl (12.0-16.0); Mean Corpuscular Hemoglobin 28.6 pg (25.0-34.0); Mean Corpuscular Hgb Conc 33.9 g/dL (32.0-36.0); Mean Corpuscular Volume 84.2 fL (80.0-100.0); Mean Platelet Volume 10.1 fL (9.4-12.4); Platelet Count 337 K/uL (130-400); RDW Coefficient of Variation 13.6 % (11.5-14.5); RDW Standard Deviation 41.8 fL (36.4-46.3); Red Blood Count 3.36 M/uL (4.20-5.40); White Blood Count 19.61 K/ul (4.8-10.8)
[2024-05-03 04:36] LABS: Calcium 9.2 mg/dl (8.6-10.3); Creatinine Clr Calc Pharmacy 45.8 ml/min; Potassium 3.7 mmol/L (3.5-5.1)
[2024-05-03 04:42] LABS: Adenovirus F 40/41 PCR Not Detected (NotDetected); Astrovirus PCR Not Detected (NotDetected); Campylobacter PCR Not Detected (NotDetected); Cryptosporidium PCR Not Detected (NotDetected); Cyclospora cayetanensis PCR Not Detected (NotDetected); Entamoeba histolytica PCR Not Detected (NotDetected); Enteroaggregative E.coli(EAEC) Not Detected (NotDetected); Enteropathogenic E.coli (EPEC) Not Detected (NotDetected); Enterotoxigenic E.coli (ETEC) Not Detected (NotDetected); Giardia lamblia PCR Not Detected (NotDetected); Norovirus GI/GII PCR Not Detected (NotDetected); Plesiomonas shigelloides PCR Not Detected (NotDetected); Rotavirus A PCR Not Detected (NotDetected); Salmonella PCR Not Detected (NotDetected); Sapovirus PCR Not Detected (NotDetected); Shiga-like Toxin E.coli (STEC) Not Detected (NotDetected); Shigella/Enteroinvasive E.coli Not Detected (NotDetected); Vibrio cholerae PCR Not Detected (NotDetected); Vibrio species PCR Not Detected (NotDetected); Yersinia enterocolitica PCR Not Detected (NotDetected)
[2024-05-03 04:43] LABS: Basophils # (auto) 0.04 K/uL (0.00-0.20); Basophils % (auto) 0.2 %; Echinocytes 1+; Eosinophils # (auto) 0.04 K/uL (0.00-0.50); Eosinophils % (auto) 0.2 %; Immature Granulocytes # (auto) 0.45 K/uL (0.01-0.20); Immature Granulocytes % (auto) 2.3 %; Lymphocytes # (auto) 1.32 K/uL (1.20-3.40); Lymphocytes % (auto) 6.7 %; Monocytes # (auto) 0.89 K/uL (0.11-0.59); Monocytes % (auto) 4.5 %; Neutrophils # (auto) 16.87 K/uL (1.40-6.50); Neutrophils % (auto) 86.1 %
[2024-05-03 05:13] LABS: Prothrombin Time > 90.0 Seconds (9.0-12.0)
[2024-05-03 05:17] LABS: INR > 10.0 (0.9-1.1)
[2024-05-03] MEDS: PHYTONADIONE 5 MG TAB PO STA (06:01)
[2024-05-03] MEDS: LEVOTHYROXINE SODIUM 100 MCG TABLET PO SCH (06:07)
[2024-05-03] MEDS ORDERED: AMOXICILLIN/CLAVULANATE 875 MG TAB PO SCH (08:00)
[2024-05-03] MEDS: AMPICILLIN/SULBACTAM SOD 3,000 MG/100 ML BAG IV SCH (08:26)
[2024-05-03 08:50] LABS: Estimated Average Glucose 123 mg/dl; Hemoglobin A1C 5.9 % (4.5-5.6)
--- NOTE | 2024-05-03 10:17 | Cardiology Consultation ---
Date of Consultation May 03, 2024 Assessment & Plan (1) Severe sepsis: (2) Pneumonia: (3) Atrial fibrillation with RVR: Plan 78-year-old female admitted with severe sepsis secondary to left-sided pneumonia. Cardiology consultation requested secondary to atrial fibrillation with a rapid ventricular response. Patient chronically prescribed Coumadin anticoagulation following cardioembolic CVA circa 2000, ANGIE reportedly with small flap of tissue adjacent interatrial septum as potential source of thrombus formation per admission history. INR greater than 10, receiving 2.5 mg of vitamin K on admission. Severe sepsis/pneumonia/thrush. As per Hospitalist Atrial fibrillation with rapid ventricular response. - Seemingly asymptomatic - Recommend rate control strategy. - Add beta-gerry therapy, metoprolol tartrate 25 mg twice per day for now - Follow on telemetry [id number] Score 5 points - Hold anticoagulation at present noting supratherapeutic INR. No active bleeding noted - Consider alternative to warfarin anticoagulation, apixaban (Eliquis) 5 mg twi ce per day Supervising Physician Co-Signing Physician Notes Patient seen and personally examined, chart, medications, telemetry reviewed. Full assessment and plan as outlined by advanced provider as above. Care and management discussed and personally endorsed 78-year-old female presents with worsening clinical status of several days to weeks duration. Found to have evidence of left-sided pneumonia with possible sepsis, elevated white cell count. Newly observed atrial fibrillation on presentation with elevated ventricular response rate. Patient chronically anticoagulated with warfarin with supratherapeutic levels on presentation. Recommendations as above will titrate beta-gerry further as tolerated for rate control. Will need to treat underlying infectious process Echocardiogram with preserved wall motion and LV function Cardiology will continue to follow History of Present Illness Reason for Consultation: Atrial fibrillation Requesting Physician: Dr. Sampson Attending Physician: Dr. Keyshawn Young MD History of Present Illness Kiara Pedroza is a 78-year-old female who presented to [facility] ER via ambulance on May 02, 2024. History obtained via chart review and interviewing the patient who is somewhat difficult to understand noting prior stroke as well as significant dry mouth from volume depletion and what looks like thrush. Patient notes URI symptoms starting approximately 4 weeks ago. Symptoms seem to wax and wane though became progressively worse over the past weeko. Patient describes cough and congestion, feeling weak and rundown, decreased appetite. Notes the neighbor brought her depends. When attempting to put them on she slid onto the floor, laying/sleeping on the floor overnight. The next day she was found by her brother who summoned EMS. Laboratory work notable for significantly elevated white blood cell count, 21.12 K/ul. Lactate 3.7. Blood cultures obtained, pending. Potassium low at 3.2. CPK 637. High-sensitivity troponin 76.9 then 74.1 pg/mL. EKG on presentation revealed atrial fibrillation with a very rapid ventricular response, 168 bpm. 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 Chest x-ray on presentation revealed patchy infiltrates in the left mid and lower lung zones consistent with aspiration or pneumonia. In the ER patient received IV Rocephin, azithromycin, 2.5 L normal saline, and IV Cardizem with resultant hypotension. Patient received 2.5 mg of vitamin K for markedly supratherapeutic INR greater than 10. Cardiology consultation requested secondary to new onset atrial fibrillation. Patient describes history of CVA circa 2000, transesophageal echocardiography at that time revealing an "aberrancy in her heart." No records available for review. Family History: Father had a stroke at 81, Alzheimer's disease. Mother had a stroke at 88, Alzheimer's disease. Sister had a stroke attributed to COVID in 2020. Brother age 92. Social History: , Ariel. Brother lives with patient. Non-smoker. No alcohol. No illegal drug use. 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 Allergies Allergy/AdvReac Type Severity Reaction Status Date / Time cat dander Allergy Unknown Verified 05/03/24 02:26 grass pollen Allergy Unknown Verified 05/03/24 02:26 tree and shrub pollen Allergy Unknown Verified 05/03/24 02:26 Home Medications Medication Instructions Recorded Confirmed Type levothyroxine 100 mcg tablet 100 mcg PO DAILYBB 05/02/24 05/02/24 History loratadine 10 mg tablet 10 mg PO QAM PRN allergy season 05/02/24 05/02/24 History warfarin 4 mg tablet 4 - 8 mg PO DAILY 05/02/24 05/02/24 History Patient History Social History Smoking Status: Never smoker Hx Alcohol Use: No Hx Substance Use: No Preferred Language: Yemeni Communication Ability: Effective Noise Tester Required: No Beliefs That Will Affect Care: None Current Living Situation: Family Other Information That Helps Us Care for You: No Feels Safe at Home: Yes Safety Concerns: Feels Safe At This Time Review of Systems Review of Systems: Complete Review of Systems is as stated above, negative, or noncontributory Physical Exam Physical Exam: General: Comfortable. Cooperative. Mucous membranes are dry Mouth: Thrush, dentures HENT: Atraumatic. Eyes: PER. Conjunctiva pink, sclera clear. Neck: Neck veins are flat Heart: Irregularly irregular at 110 bpm. No murmur. Lungs: Diminsihed. Decreased. Left sided rhonchi. No wheeze. Abdomen: +BS. Soft. Nontender. No masses or organomegaly. Extremities: Trivial edema. No clubbing. No cyanosis. Some aphasia, left sided weakness. Pulses: Posterior tibial=1/4. Results & Data Vital Signs (Past 12 Hours) Vital Signs Temp Pulse Pulse Resp BP BP Pulse Ox 05/03/24 08:28 36.8 C 112 H 20 124/75 93 05/03/24 07:38 103 H 05/03/24 04:05 05/03/24 04:05 37 C 92 H 22 103/62 93 05/03/24 03:14 118/79 86 L 05/03/24 03:10 118/79 05/03/24 03:03 89 29 H 95/53 L 89 L 05/03/24 02:54 85 29 H 100/50 L 95 05/03/24 02:42 80 27 H 96/52 L 98 05/03/24 02:27 89 29 H 98/50 L 96 05/03/24 02:15 89 29 H 102/59 L 91 05/03/24 01:51 111/61 05/03/24 01:40 107/64 05/03/24 01:30 89/54 L 05/03/24 01:12 86 25 H 121/78 86 L 05/03/24 01:09 78 24 121/78 93 05/03/24 01:03 78 28 H 83/50 L 95 05/03/24 00:51 83 28 H 84/60 L 96 05/03/24 00:40 87/49 L 05/03/24 00:33 97 H 30 H 92/51 L 95 05/03/24 00:26 99 H 05/03/24 00:12 109 H 30 H 111/57 L 94 05/03/24 00:06 93 H 25 H 112/68 89 L 05/02/24 23:51 99 H 30 H 154/131 H 94 05/02/24 23:41 110/44 L 05/02/24 23:30 108/59 L 05/02/24 23:20 127/55 L 05/02/24 23:10 113/64 05/02/24 23:00 126/71 05/02/24 23:00 126/71 05/02/24 22:50 108/64 05/02/24 22:40 107/54 L 05/02/24 22:30 107/68 05/02/24 22:20 104/63 Pulse Ox O2 Del Method O2 Del Method O2 Flow Rate O2 Flow Rate 05/03/24 08:28 Nasal Cannula 5 05/03/24 07:38 05/03/24 04:05 93 Nasal Cannula 5 05/03/24 04:05 Nasal Cannula 5 05/03/24 03:14 05/03/24 03:10 05/03/24 03:03 05/03/24 02:54 05/03/24 02:42 05/03/24 02:27 05/03/24 02:15 05/03/24 01:51 05/03/24 01:40 05/03/24 01:30 05/03/24 01:12 05/03/24 01:09 05/03/24 01:03 05/03/24 00:51 05/03/24 00:40 05/03/24 00:33 05/03/24 00:26 05/03/24 00:12 05/03/24 00:06 05/02/24 23:51 05/02/24 23:41 05/02/24 23:30 05/02/24 23:20 05/02/24 23:10 05/02/24 23:00 05/02/24 23:00 05/02/24 22:50 05/02/24 22:40 05/02/24 22:30 05/02/24 22:20 Laboratory Results Cardiac Enzymes 05/02/24 05/02/24 Range/Units 20:34 22:26 AST 31 (13-39) U/L Troponin I High Sens 76.9 H* 74.1 H* (0-14) pg/ml Coagulation 05/02/24 05/02/24 05/03/24 Range/Units 20:34 22:25 00:20 PT Cancelled Cancelled > 90.0 H 05/03/24 Range/Units 04:05 PT > 90.0 H CBC 05/02/24 05/03/24 Range/Units 20:34 04:05 WBC 21.12 H 19.61 H (4.8-10.8) K/ul RBC 4.45 3.36 L (4.20-5.40) M/uL Hgb 12.7 9.6 L D (12.0-16.0) g/dl Hct 37.3 28.3 L (37.0-47.0) % Plt Count 512 H 337 (130-400) K/uL Neut # (Auto) 18.60 H 16.87 H (1.40-6.50) K/uL Lymph # (Auto) 1.21 1.32 (1.20-3.40) K/uL [place] # (Auto) 0.64 H 0.89 H (0.11-0.59) K/uL Eos # (Auto) 0.05 0.04 (0.00-0.50) K/uL Baso # (Auto) 0.06 0.04 (0.00-0.20) K/uL Comprehensive Metabolic Panel 05/02/24 05/03/24 Range/Units 20:34 04:05 Sodium 138 141 (136-145) mmol/L Potassium 3.2 L 3.7 (3.5-5.1) mmol/L Chloride 100 110 H (98-107) mmol/L Carbon Dioxide 25 26 (21-32) mmol/L BUN 37 H 33 H (6-23) mg/dl Creatinine 1.24 H 1.00 (0.6-1.2) mg/dl Glucose 179 H 123 H (70-99(Fasting)) mg/dl Calcium 11.2 H 9.2 D (8.6-10.3) mg/dl AST 31 (13-39) U/L ALT 25 (7-52) U/L Alkaline Phosphatase 126 H (34-104) U/L Total Protein 7.2 (6.0-8.3) gm/dl Albumin 3.1 L (3.4-5.0) gm/dl Intake and Output 05/02/24 05/03/24 05/03/24 22:59 06:59 14:59 Intake Total 1050.833 / 3552.666 2501.833 / 3552.666 1100 / 1100 Balance 1050.833 / 3552.666 2501.833 / 3552.666 1100 / 1100 Intake: IV 1050.833 / 3552.666 2501.833 / 3552.666 1100 / 1100 Ampicillin/Sulbactam Sod 3,000 100 / 100 100 / 100 mg In 100 ml @ 200 mls/hr IV Q6H [facility] Rx#:[id number] Azithromycin 500 mg In Sodium 255 / 255 Chloride 0.9% 250 ml @ 127.5 mls/hr IV NOW ONE Rx#:[id number] Magnesium Sulfate / D5w 1 gm In 100 / 100 100 ml @ 50 mls/hr IV ONE ONE Rx#:[id number] Nss + 20Meq KCl 20 meq In 1,000 1000 / 1000 ml @ 100 mls/hr IV .Q10H ONE Rx#:[id number] Potassium Chloride 20 meq In 1010 / 1010 Lactated Ringer's 1,000 ml @ 500 mls/hr IV .Q2H2M ONE Rx#: [id number] Sodium Chloride 0.9% 1,000 ml @ 1000 / 2000 1000 / 2000 999 mls/hr IV .Q1H1M ONE Rx#: [id number] cefTRIAXone SODIUM 2,000 mg In 50 / 50 50 ml @ 100 mls/hr IV NOW STA Rx#:[id number] dilTIAZem HCL 125 mg In 0.833 / 37.666 36.833 / 37.666 Dextrose 5% 100 ml @ 5 MG/HR 5 mls/hr IV .Q24H [facility] Rx#: [id number] Other: Weight 67.5 kg 67.5 kg Weight Measurement Method Built in Bedscale [facility] (2) Pneumonia Laterality: unspecified laterality Lung location: unspecified part of lung Pneumonia type: due to unspecified organism Qualified Code(s): J18.9 - Pneumonia, unspecified organism
[2024-05-03 10:32] LABS: Basophils # (auto) 0.03 K/uL (0.00-0.20); Basophils % (auto) 0.2 %; Eosinophils # (auto) 0.11 K/uL (0.00-0.50); Eosinophils % (auto) 0.6 %; Hematocrit (blood only) 28.6 % (37.0-47.0); Hemoglobin 9.5 g/dl (12.0-16.0); Immature Granulocytes # (auto) 0.36 K/uL (0.01-0.20); Immature Granulocytes % (auto) 1.9 %; Lymphocytes # (auto) 1.22 K/uL (1.20-3.40); Lymphocytes % (auto) 6.4 %; Mean Corpuscular Hemoglobin 28.3 pg (25.0-34.0); Mean Corpuscular Hgb Conc 33.2 g/dL (32.0-36.0); Mean Corpuscular Volume 85.1 fL (80.0-100.0); Mean Platelet Volume 10.1 fL (9.4-12.4); Monocytes # (auto) 0.97 K/uL (0.11-0.59); Monocytes % (auto) 5.1 %; Neutrophils % (auto) 85.8 %; Platelet Count 343 K/uL (130-400); RDW Coefficient of Variation 13.7 % (11.5-14.5); RDW Standard Deviation 42.3 fL (36.4-46.3); Red Blood Count 3.36 M/uL (4.20-5.40); White Blood Count 18.99 K/ul (4.8-10.8)
[2024-05-03] MEDS: METOPROLOL TARTRATE 25 MG TAB PO SCH (11:08)
[2024-05-03 11:25] LABS: Prothrombin Time > 90.0 Seconds (9.0-12.0)
[2024-05-03 11:38] LABS: INR > 10.0 (0.9-1.1)
[2024-05-03] MEDS: NYSTATIN SUSP 500,000 U/5 ML UDC PO SCH (12:36)
[2024-05-03] MEDS: PHYTONADIONE 5 MG in DEXTROSE 5% 50 ML IV ONE (13:35)
[2024-05-03] MEDS: PIPERACILLIN/TAZOBACTAM 4.5 GM/100 ML BAG IV SCH (14:06)
--- NOTE | 2024-05-03 15:03 | Hospitalist Progress Note ---
Date of Service May 03, 2024 Assessment & Plan (1) Severe sepsis: Plan: Per admitting service notes with addendum: Fall, Weakness secondary to Severe sepsis SIRS plus lactic acidosis secondary to possible Community-acquired pneumonia versus aspiration pneumonia Blood cultures: Pending Sputum culture: Ordered Lactic acid improved from 6.0, now 1.9 Broaden antibiotic coverage to Zosyn plus doxycycline Speech therapy evaluation New onset A-fib secondary to illness History cardioembolic CVA, INR supratherapeutic without overt signs of bleed. Started metoprolol 25 mg p.o. twice daily Echocardiogram pending Cardiology service consult No overt signs of bleeding Hemoglobin 12.7, 9.6, 9.5 INR still more than 10 Vitamin K IV 5 mg ordered Continue to monitor closely mild troponin elevation- stable, no cardiac symptoms likely demand ischemia from A fib, hypoxia Status post fall Mild rhabdomyolysis Initial CPK 637, repeat pending Check pelvic x-ray Hypotension secondary to IV Cardizem infusion BP on the lower side continue IV NSS Bronchial asthma no wheezing symptoms Hypothyroidism euthyroid as of today's TSH Hyperglycemia ro DM 5.9 PT OT eval once medically stable DVT prophylaxis. Coumadin INR goal between 2 and 3 Full code Admission and Anticipated Discharge Date Admission Date: May 03, 2024 Subjective Follow-up for sepsis, pneumonia, fall, A-fib, etc. Seen resting in bed, comfortable, in good spirits On 2 L of O2 nasal cannula States she feels better overall Breathing is better, still having some dry cough Denies fevers or chills, chest pain, palpitations, dizziness, nausea No other new symptoms Review of Systems Review of Systems: all noted and negative except for above Physical Exam Physical Exam: General- oriented x 3, not in distress, speaks in sentences with no effort or accessory muscle use Eyes- anicteric Neck- no JVD Lungs- Mild crackles left lower lobe, clear on the right No wheeze Heart- normal rate, regular rhythm; no murmurs Abdomen- normal bowel sounds, nondistended, soft, nontender Extremities- no pretibial edema, no calf tenderness Neuro- alert, oriented x 3; no gross focal neurologic deficits Skin- warm & dry Results & Data Results & Data Vital Signs (Past 12 Hours) Vital Signs Temp Pulse Pulse Resp BP BP Pulse Ox 05/03/24 13:29 110 H 20 99/72 L 96 05/03/24 08:28 36.8 C 112 H 20 124/75 93 05/03/24 07:38 103 H 05/03/24 04:05 05/03/24 04:05 37 C 92 H 22 103/62 93 05/03/24 03:14 118/79 86 L 05/03/24 03:10 118/79 05/03/24 03:03 89 29 H 95/53 L 89 L 05/03/24 02:54 85 29 H 100/50 L 95 Pulse Ox O2 Del Method O2 Del Method O2 Flow Rate O2 Flow Rate 05/03/24 13:29 Room Air 05/03/24 08:28 Nasal Cannula 5 05/03/24 07:38 05/03/24 04:05 93 Nasal Cannula 5 05/03/24 04:05 Nasal Cannula 5 05/03/24 03:14 05/03/24 03:10 05/03/24 03:03 05/03/24 02:54 all noted and reviewed including below
[2024-05-03] MEDS: SODIUM CHLORIDE 0.9% 1,000 ML IV SCH (15:34)
--- NOTE | 2024-05-03 15:34 | Electrocardiogram Report ---
Test Reason : Blood Pressure : */* mmHG Vent. Rate : 168 BPM Atrial Rate : * BPM P-R Int : * ms QRS Dur : 90 ms QT Int : 284 ms P-R-T Axes : * 55 155 degrees QTcB Int : 474 ms Atrial fibrillation with rapid ventricular response Marked ST abnormality, possible inferior subendocardial injury Abnormal ECG When compared with ECG of 18-Dec-2000 12:03, MANUAL COMPARISON REQUIRED PREVIOUS ECG IS INCOMPATIBLE Confirmed by Corwin Germain ([id number]) on 05/03/2024 3:34:13 PM Referred By: REFERRED SELF Confirmed By: Corwin Germain
--- NOTE | 2024-05-03 17:04 | XRay Report ---
EXAM: Radiographs of the Bilateral Hips 3 Views INDICATION: Trauma. TECHNIQUE: Front view pelvis and AP and frog leg lateral views of the bilateral hip. COMPARISON: No relevant prior studies available. FINDINGS: Limitations: None. Bones/joints: No fracture, erosion or dislocation. Soft tissues: No abnormality noted. No radiopaque foreign body noted. IMPRESSION: Normal bilateral hip x-rays. ACT 112: Negative or not required by law. Electronically signed by Gale Remy 05-03-2024 5:04 PM
[2024-05-03] MEDS ORDERED: Nursing to Pharmacy Communication SCH (18:00)
[2024-05-03] MEDS: DOXYCYCLINE HYCLATE 100 MG in DEXTROSE 5% MINI-B 100 ML IV SCH (19:54)
[2024-05-03] MEDS: METOPROLOL TARTRATE 50 MG TAB PO SCH (20:37)
[2024-05-04] MEDS: METOPROLOL TARTRATE 1 MG/ML VIAL IV STA (02:18)
[2024-05-04 02:21] LABS: Magnesium 1.9 mg/dl (1.7-2.4)
[2024-05-04] MEDS: POTASSIUM CHLORIDE PWD 20 MEQ PACK PO STA (02:23)
[2024-05-04] MEDS: NSS + 20MEQ KCL 20 MEQ/1,000 ML BAG IV ONE (05:00)
[2024-05-04 07:57] LABS: Basophils # (auto) 0.02 K/uL (0.00-0.20); Basophils % (auto) 0.1 %; Eosinophils # (auto) 0.06 K/uL (0.00-0.50); Eosinophils % (auto) 0.3 %; Hematocrit (blood only) 26.3 % (37.0-47.0); Hemoglobin 8.8 g/dl (12.0-16.0); Immature Granulocytes # (auto) 0.48 K/uL (0.01-0.20); Immature Granulocytes % (auto) 2.8 %; Lymphocytes # (auto) 1.08 K/uL (1.20-3.40); Lymphocytes % (auto) 6.3 %; Mean Corpuscular Hemoglobin 28.9 pg (25.0-34.0); Mean Corpuscular Hgb Conc 33.5 g/dL (32.0-36.0); Mean Corpuscular Volume 86.5 fL (80.0-100.0); Mean Platelet Volume 10.1 fL (9.4-12.4); Monocytes # (auto) 0.72 K/uL (0.11-0.59); Monocytes % (auto) 4.2 %; Neutrophils # (auto) 14.85 K/uL (1.40-6.50); Neutrophils % (auto) 86.3 %; Nucleated RBC # (auto) 0.02 K/uL (0.00-0.12); Nucleated RBC % (auto) 0.1 %; Platelet Count 322 K/uL (130-400); RDW Coefficient of Variation 13.9 % (11.5-14.5); RDW Standard Deviation 43.6 fL (36.4-46.3); Red Blood Count 3.04 M/uL (4.20-5.40); White Blood Count 17.21 K/ul (4.8-10.8)
[2024-05-04 07:58] LABS: BUN Creatinine Ratio 21.6 (10-20); Calcium 8.7 mg/dl (8.6-10.3); Creatinine Clr Calc Pharmacy 44.9 ml/min; Potassium 3.6 mmol/L (3.5-5.1)
[2024-05-04 08:08] LABS: INR 1.3 (0.9-1.1); Prothrombin Time 13.4 Seconds (9.0-12.0)
[2024-05-04 10:42] LABS: Adenovirus F 40/41 PCR Not Detected (NotDetected); Astrovirus PCR Not Detected (NotDetected); Campylobacter PCR Not Detected (NotDetected); Cryptosporidium PCR Not Detected (NotDetected); Cyclospora cayetanensis PCR Not Detected (NotDetected); Entamoeba histolytica PCR Not Detected (NotDetected); Enteroaggregative E.coli(EAEC) Not Detected (NotDetected); Enteropathogenic E.coli (EPEC) Not Detected (NotDetected); Enterotoxigenic E.coli (ETEC) Not Detected (NotDetected); Giardia lamblia PCR Not Detected (NotDetected); Norovirus GI/GII PCR Not Detected (NotDetected); Plesiomonas shigelloides PCR Not Detected (NotDetected); Rotavirus A PCR Not Detected (NotDetected); Salmonella PCR Not Detected (NotDetected); Sapovirus PCR Not Detected (NotDetected); Shiga-like Toxin E.coli (STEC) Not Detected (NotDetected); Shigella/Enteroinvasive E.coli Not Detected (NotDetected); Vibrio cholerae PCR Not Detected (NotDetected); Vibrio species PCR Not Detected (NotDetected); Yersinia enterocolitica PCR Not Detected (NotDetected)
--- NOTE | 2024-05-04 11:47 | CT Scan Report ---
ABDOMEN AND PELVIS CT WITHOUT CONTRAST CT DOSE: 859.97 mGy.cm HISTORY: anemia, r/o bleed TECHNIQUE: Multiaxial CT images of the abdomen and pelvis were performed without contrast. A dose lo wering technique was utilized adhering to the principles of ALARA. COMPARISON STUDY: None FINDINGS: There are bilateral pleural effusions, small on the right and trace on the left. There is p atchy consolidation throughout the visualized lower lungs consistent with pneumonia. ABDOMEN: There are a few small gallstones. There is possible mild wall thickening at portions of the gallbladder. Otherwise the liver, spleen, pancreas, and adrenal glands have an unremarkable amount IV contrast appearance. Kidneys show no hydronephrosis. There are scattered atherosclerotic calcificati ons. No abdominal aortic aneurysm. Pelvis: Prado catheter is present in the urinary bladder is decompressed. Uterus is absent. No adnexa l mass. There is mild retained stool. No bowel inflammation or obstruction. No free fluid, free air, or abscess. No evidence of retroperitoneal or pelvic hematoma. Osseous structures: No acute osseous findings. IMPRESSION: 1. Bilateral pneumonia with small pleural effusions. 2. Gallstones. Possible mild wall thickening at the gallbladder. If there are symptoms of early lee cystitis, follow-up is suggested. 3. No evidence of hemorrhage seen at the abdomen or pelvis. No other acute findings seen. 4. Otherwise as described. ACT 112: Negative or not required by law. The above report was generated using voice recognition software. It may contain grammatical, syntax o r spelling errors. Electronically signed by: Espinoza Marie M.D. 05/04/2024 11:46 AM
[2024-05-04] MEDS: PANTOprazole 40 MG/10 ML SYR IV SCH (12:26)
--- NOTE | 2024-05-04 13:13 | Cardiology Progress Note ---
Date of Service May 04, 2024 Assessment & Plan (1) Severe sepsis: (2) Pneumonia: (3) Atrial fibrillation with RVR: Plan 78-year-old female admitted with severe sepsis secondary to left-sided pneumonia. Cardiology consultation requested secondary to new onset atrial fibrillation with a rapid ventricular response. 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 INR greater than 10 on presentation, 1.3 this AM after receiving two doses of vitamin K Severe sepsis/pneumonia/thrush. As per Hospitalist New onset atrial fibrillation with rapid ventricular response. [id number] Score 5 points - Asymptomatic - Recommend rate control strategy. - Metoprolol, new this admission, increased now to 50 mg twice a day. - Continue telemetry - Hold anticoagulation for now; high risk for heparin noting drop in hemoglobin since admission - No overt bleeding noted by history or examination - Consider further evaluation - CT chest/A/P - Recommend alternative to warfarin anticoagulation - apixaban (Eliquis) 5 mg twice per day; she plans to discuss this with her nephew who is a pharmacist. Admission and Anticipated Discharge Date Admission Date: May 03, 2024 Supervising Physician Co-Signing Physician Notes Patient seen and personally examined, chart, medications, telemetry reviewed. Full assessment and plan as outlined by advanced provider as above. Care and management discussed and personally endorsed 78-year-old female presents with worsening clinical status of several days to weeks duration. Found to have evidence of left-sided pneumonia with possible sepsis, elevated white cell count. Newly observed atrial fibrillation on presentation with elevated ventricular response rate. Patient chronically a nticoagulated with warfarin with supratherapeutic levels on presentation. Recommendations as above will titrate beta-gerry further as tolerated for rate control. Will need to treat underlying infectious process, Consider CT scan of chest Echocardiogram with preserved wall motion and LV function Place will consider anticoagulation with Eliquis. Currently holding anticoagulation given abrupt drop in hemoglobin Cardiology will continue to follow Subjective Patient seen and examined. Chart, medications, and telemetry reviewed. Feeling and looking better. + Cough. Some irritation from the Prado catheter. No chest pain, palpitations, shortness of breath, edema, hemoptysis, melena, or hematochezia Telemetry: Atrial fibrillation around 100 bpm. Review of Systems Review of Systems: Complete Review of Systems is as stated above, negative, or noncontributory Physical Exam Physical Exam: General: Better, comfortable. HENT: Atraumatic. Eyes: PER. Conjunctiva pink, sclera clear. Neck: Neck veins are flat Heart: Irregularly irregular at 100 bpm. No murmur. Lungs: Bibasilar rales. No wheeze. Abdomen: +BS. Soft. Nontender. No masses or organomegaly. Extremities: No significant edema. No clubbing. No cyanosis. Results & Data Vital Signs (Past 12 Hours) Vital Signs Temp Pulse Pulse Resp BP BP Pulse Ox 05/04/24 10:44 36.7 C 77 18 102/65 94 05/04/24 08:00 05/04/24 07:04 36.7 C 108 H 18 109/67 91 05/04/24 04:00 05/04/24 02:33 88 109/67 05/04/24 02:18 118 H 05/04/24 01:42 36.8 C 118 H 20 118/73 92 O2 Del Method O2 Del Method O2 Flow Rate O2 Flow Rate 05/04/24 10:44 Nasal Cannula 1 05/04/24 08:00 Nasal Cannula 2 05/04/24 07:04 Nasal Cannula 1 05/04/24 04:00 Nasal Cannula 2 05/04/24 02:33 05/04/24 02:18 05/04/24 01:42 Nasal Cannula 2 Laboratory Results Coagulation 05/04/24 Range/Units 07:01 PT 13.4 H (9.0-12.0) Seconds CBC 05/04/24 Range/Units 07:01 WBC 17.21 H (4.8-10.8) K/ul RBC 3.04 L (4.20-5.40) M/uL Hgb 8.8 L (12.0-16.0) g/dl Hct 26.3 L (37.0-47.0) % Plt Count 322 (130-400) K/uL Neut # (Auto) 14.85 H (1.40-6.50) K/uL Lymph # (Auto) 1.08 L (1.20-3.40) K/uL [place] # (Auto) 0.72 H (0.11-0.59) K/uL Eos # (Auto) 0.06 (0.00-0.50) K/uL Baso # (Auto) 0.02 (0.00-0.20) K/uL Comprehensive Metabolic Panel 05/04/24 Range/Units 07:01 Sodium 142 (136-145) mmol/L Potassium 3.6 (3.5-5.1) mmol/L Chloride 114 H (98-107) mmol/L Carbon Dioxide 27 (21-32) mmol/L BUN 22 (6-23) mg/dl Creatinine 1.02 (0.6-1.2) mg/dl Glucose 133 H (70-99(Fasting)) mg/dl Calcium 8.7 (8.6-10.3) mg/dl Intake and Output 05/03/24 05/04/24 05/04/24 22:59 06:59 14:59 Intake Total 440 / 2890.5 1300 / 2890.5 200 / 200 Output Total 900 / 1101 201 / 1101 Balance -460 / 1789.5 1099 / 1789.5 200 / 200 Intake: IV 200 / 2450.5 1100 / 2450.5 200 / 200 Doxycycline Hyclate 100 mg In 100 / 100 100 / 100 Dextrose 5% Mini-B 100 ml @ 50 mls/hr IV Q12H AMILCAR Rx#:[id number] Piperacillin/Tazobactam 4.5 gm 100 / 200 100 / 200 100 / 100 In 100 ml @ 25 mls/hr IV Q8H AMILCAR Rx#:[id number] Sodium Chloride 0.9% 1,000 ml @ 1000 / 1000 80 mls/hr IV .[id number] AMILCAR Rx#: [id number] Oral 240 / 440 200 / 440 Output: Urine Amount (Catheter) 900 / 1100 200 / 1100 Prado/Indwelling 900 / 1100 200 / 1100 # Bowel Movements Other: Weight 66.2 kg (2) Pneumonia Laterality: unspecified laterality Lung location: unspecified part of lung Pneumonia type: due to unspecified organism Qualified Code(s): J18.9 - Pneumonia, unspecified organism
[2024-05-04 13:17] LABS: Hematocrit (blood only) 27.8 % (37.0-47.0); Hemoglobin 9.1 g/dl (12.0-16.0)
--- NOTE | 2024-05-04 17:01 | Hospitalist Progress Note ---
Date of Service May 04, 2024 Assessment & Plan (1) Severe sepsis: Plan: Per admitting service notes with addendum: Fall, Weakness secondary to Severe sepsis SIRS plus lactic acidosis secondary to possible Community-acquired pneumonia versus aspiration pneumonia Blood cultures: Pending Sputum culture: Ordered Lactic acid improved from 6.0, now 1.9 Broaden antibiotic coverage to Zosyn plus doxycycline Speech therapy evaluation 05/04 clinically improving remains on 2 L O2 continue Zosyn + Doxy New onset A-fib secondary to Above History cardioembolic CVA, INR supratherapeutic without overt signs of bleed. Started metoprolol 25 mg p.o. twice daily Echocardiogram pending Cardiology service consult - HR controlled No overt signs of bleeding Hemoglobin 12.7, 9.6, 9.5 INR still more than 10 Vitamin K IV 5 mg ordered INR now < 2 mild troponin elevation- stable, no cardiac symptoms likely demand ischemia from A fib, hypoxia Acute blood loss Anemia Suspected Upper GI Bleed in the setting of supratherapetuic INR (+) melena (+) FOBT Hg decreased from 12 to 9--> remaining stable ~[address] abd: no bleed Protonix IV BID GI consulted Status post fall Mild rhabdomyolysis Initial CPK 637, repeat pending pelvic x-ray: negative for fx patient's son reporting weakness, loss of coordination for the past few days: obtain CT head Hypotension secondary to IV Cardizem infusion BP on the lower side continue IV NSS Bronchial asthma no wheezing symptoms Hypothyroidism euthyroid as of today's TSH Hyperglycemia ro DM aic 5.9 PT OT eval once medically stable DVT prophylaxis. hold, possible GI bleed Full code Disposition lives at home PT/OT eval Admission and Anticipated Discharge Date Admission Date: May 03, 2024 Subjective ff up for sepsis, hypoxia, pneumonia, anemia, a fib, etc seen resting in bed, comfortable on 2 L NC states she feels fine overall no dyspnea, has occasional cough no chest pain no abdominal, nausea/vomiting melena noted by RN discussed with patient's son over the phone he reports patient seems to have generalized weakness, loss of coordination for the past few days Review of Systems Review of Systems: all noted and negative except for above Physical Exam Physical Exam: General- oriented x 3, not in distress, speaks in sentences with no effort or accessory muscle use Eyes- anicteric Neck- no JVD Lungs- mild rales Left base, clear on the right no wheezing Heart- normal rate, regular rhythm; no murmurs Abdomen- normal bowel sounds, nondistended, soft, nontender Extremities- no pretibial edema, no calf tenderness Neuro- alert, oriented x 3; no gross focal neurologic deficits Skin- warm & dry Results & Data Results & Data Vital Signs (Past 12 Hours) Vital Signs Temp Pulse Resp BP Pulse Ox O2 Del Method O2 Flow Rate 05/04/24 14:45 37.5 C 91 H 18 109/67 95 Nasal Cannula 2 05/04/24 10:44 36.7 C 77 18 102/65 94 Nasal Cannula 1 05/04/24 08:00 Nasal Cannula 2 05/04/24 07:04 36.7 C 108 H 18 109/67 91 Nasal Cannula 1 all noted and reviewed including below
[2024-05-05] MEDS: METOPROLOL TARTRATE 1 MG/ML VIAL IV STA (06:32)
[2024-05-05] MEDS: MAGNESIUM SULFATE / D5W 1 GM/100 ML BAG IV ONE (06:32)
[2024-05-05 06:53] LABS: Basophils # (auto) 0.02 K/uL (0.00-0.20); Basophils % (auto) 0.1 %; Eosinophils # (auto) 0.05 K/uL (0.00-0.50); Eosinophils % (auto) 0.3 %; Hematocrit (blood only) 26.8 % (37.0-47.0); Immature Granulocytes # (auto) 0.52 K/uL (0.01-0.20); Lymphocytes # (auto) 1.14 K/uL (1.20-3.40); Lymphocytes % (auto) 6.6 %; Mean Corpuscular Hemoglobin 28.8 pg (25.0-34.0); Mean Corpuscular Hgb Conc 33.6 g/dL (32.0-36.0); Mean Corpuscular Volume 85.9 fL (80.0-100.0); Mean Platelet Volume 10.1 fL (9.4-12.4); Monocytes # (auto) 0.87 K/uL (0.11-0.59); Monocytes % (auto) 5.1 %; Neutrophils # (auto) 14.55 K/uL (1.40-6.50); Neutrophils % (auto) 84.9 %; Platelet Count 319 K/uL (130-400); RDW Coefficient of Variation 14.3 % (11.5-14.5); RDW Standard Deviation 44.3 fL (36.4-46.3); Red Blood Count 3.12 M/uL (4.20-5.40); White Blood Count 17.15 K/ul (4.8-10.8)
[2024-05-05 07:06] LABS: BUN Creatinine Ratio 21.4 (10-20); Calcium 9.1 mg/dl (8.6-10.3); Creatinine Clr Calc Pharmacy 44.5 ml/min; Potassium 3.9 mmol/L (3.5-5.1)
[2024-05-05 07:12] LABS: INR 1.4 (0.9-1.1)
--- NOTE | 2024-05-05 10:08 | Gastrointestinal Consultation ---
Date of Consultation May 05, 2024 Assessment & Plan (1) Heme positive stool: (2) Anemia: Plan Patient is a 78 year old female admitted with sepsis, pneumonia, fall at home, and new a fib. GI asked to see for heme positive stools and drop in hgb in the setting of supratherapeutic INR. - continue to follow hgb/hct and transfuse as needed. - continue with protonix 40mg IV BID. - we had discussed further GI testing to look into anemia, including EGD and colonoscopy but she tells me she has no desire to have any GI evaluation. Supervising Physician Co-Signing Physician Notes Anemia. INR was above 10. Likely she has a significant bleeding source as the bleeding would been fairly dramatic at this level of INR. Agree with PPI reviewed potential need for endoscopic evaluation patient is not interested. Increased INR likely related to decreased appetite related to (viral)upper respiratory tract infection. PPI would appear to be appropriate. Reconsult as needed if the situation changes if there is signs of bleeding with a therapeutic INR or normal INR. History of Present Illness Reason for Consultation: Anemia / GIB Requesting Physician: Keyshawn Young MD Attending Physician: Bessy Terrell MD History of Present Illness Patient is a 78 year old female with history of CVA on Coumadin, who presented to the ED on 05/02/24 for upper respiratory symptoms that started 4 weeks ago in the week prior to admission had gotten worse. She notes she feels overall weak and rundown. She had fallen to the ground and was unable to get up and was brought to the ED for evaluation. Upon work up she was found to have new A fib and a supratherapeutic INR of >10. Initial hgb was 12.7 but had since been trending downwards. Hgb currently stable at 9 today. she has had some diarrhea, but stool studies unremarkable. Her stools tested Hemoccult positive, though she denies any melena or brbpr. no nausea, vomiting, acid reflux, or abdominal pain. she has never had a colonoscopy or EGD in the past and tells me she has no intention of having these. CT 05/04/24 Bilateral pneumonia with small pleural effusions. Gallstones. Possible mild wall thickening at the gallbladder. If there are symptoms of early cholecystitis, follow-up is suggested. No evidence of hemorrhage seen at the abdomen or pelvis. No other acute findings seen. Allergies Allergy/AdvReac Type Severity Reaction Status Date / Time cat dander Allergy Unknown Verified 05/03/24 02:26 grass pollen Allergy Unknown Verified 05/03/24 02:26 tree and shrub pollen Allergy Unknown Verified 05/03/24 02:26 Home Medications Medication Instructions Recorded Confirmed Type levothyroxine 100 mcg tablet 100 mcg PO DAILYBB 05/02/24 05/02/24 History loratadine 10 mg tablet 10 mg PO QAM PRN allergy season 05/02/24 05/02/24 History warfarin 4 mg tablet 4 - 8 mg PO DAILY 05/02/24 05/02/24 History Patient History Social History Smoking Status: Never smoker Hx Alcohol Use: No Hx Substance Use: No Preferred Language: Turkish Communication Ability: Effective Legal Internship Required: No Beliefs That Will Affect Care: None Current Living Situation: Family Other Information That Helps Us Care for You: No Feels Safe at Home: Yes Safety Concerns: Feels Safe At This Time Assistive Devices: None Review of Systems Review of Systems: All systems reviewed & are unremarkable except as noted in HPI & below Physical Exam Constitutional: WD/WN, vitals as above Respiratory: normal respiratory effort, lungs clear to auscultation Cardiovascular: Rate/Rhythm: regular rate and regular rhythm Gastrointestinal (Abdomen): normal bowel sounds, soft, nontender, no hepatosplenomegaly Psychiatric: Orientation: alert and oriented x 3 Results & Data Vital Signs (Past 12 Hours) Vital Signs Temp Pulse Pulse Resp BP BP Pulse Ox 05/05/24 08:18 98.1 F 132 H 18 126/77 92 05/05/24 06:47 130 H 05/05/24 04:00 05/05/24 03:02 98.6 F 118 H 18 134/85 94 05/04/24 22:24 97.3 F L 102 H 18 107/69 93 O2 Del Method O2 Del Method O2 Flow Rate 05/05/24 08:18 Room Air 05/05/24 06:47 05/05/24 04:00 Room Air 05/05/24 03:02 Room Air 05/04/24 22:24 Nasal Cannula 2 Coding Level of Care Code 08356 INT INP/OBS CARE 2/55MIN Diagnoses Heme positive stool R19.5 Anemia D64.9
--- NOTE | 2024-05-05 11:36 | CT Scan Report ---
CT head/brain wo con CLINICAL HISTORY: loss of coordination, weakness, fall, r/o cva/blee. TECHNIQUE: Multiple axial CT images of the head were obtained without contrast. A dose lowering tech nique was utilized adhering to the principles of ALARA. CT DOSE: 625.8 mGy.cm COMPARISON: None FINDINGS: There is motion artifact. There is a moderate-sized area of encephalomalacia posterior left parietal lobe, likely represents old infarction. There is a small lacunar infarction in the right ba megan ganglia. There are moderate chronic small vessel ischemic changes. No intracranial hemorrhage see n. No mass effect, midline shift, or hydrocephalus. No skull fracture seen. Visualized paranasal sinu ses and mastoid air cells are clear. IMPRESSION: 1. No acute findings seen. 2. Encephalomalacia at the left parietal lobe likely represents old infarction. Otherwise as describe d. ACT 112: Negative or not required by law. The above report was generated using voice recognition software. It may contain grammatical, syntax o r spelling errors. Electronically signed by: Espinoza Marie M.D. 05/05/2024 11:35 AM
--- NOTE | 2024-05-05 11:47 | Cardiology Progress Note ---
Date of Service May 05, 2024 Assessment & Plan (1) Severe sepsis: (2) Pneumonia: (3) Atrial fibrillation with RVR: Plan 05/04/24 78-year-old female admitted with severe sepsis secondary to left-sided pneumonia. Cardiology consultation requested secondary to new onset atrial fibrillation with a rapid ventricular response. 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 INR greater than 10 on presentation, 1.3 this AM after receiving two doses of vitamin K Severe sepsis/pneumonia/thrush. As per Hospitalist New onset atrial fibrillation with rapid ventricular response. [id number] Score 5 points - Asymptomatic - Recommend rate control strategy. - Metoprolol, new this admission, increased now to 50 mg twice a day. - Continue telemetry - Hold anticoagulation for now; high risk for heparin noting drop in hemoglobin since admission - No overt bleeding noted by history or examination - Consider further evaluation - CT chest/A/P - Recommend alternative to warfarin anticoagulation - apixaban (Eliquis) 5 mg twice per day; she plans to discuss this with her nephew who is a pharmacist. 05/05/24: Persistent afib noted again today. Variable HR's Transition to metoprolol succinate and increase to 50 mg TID Monitor BP She is asymptomatic. Hold anticoagulation for now given drop in Hbg and + FOBT. Stable this morning at 9.0. No reported GI bleeding currently. No IV heparin for now. Will need future anticoagulation. She has been on warfarin historically, but with INR > 10 on arrival, would recommend transitioning to Eliquis 5 mg BID. Patient wishes to discuss with her family members. Ongoing rate control strategy recommended for afib. Echo during admission with preserved LVEF. Normal wall motion and no significant valvular disease. Moderately dilated LA. Ongoing treatment for sepsis/pneumonia per hospitalist. Having swallowing eval this morning. Negative blood cultures. Case discussed with Dr. King. Will follow. I spent a total of 40 minutes on the date of service in preparation, delivery, and documentation of the care provided to this patient, excluding any time spent in the performance of separately billed services. Clarisse Juan PA-C Department of Cardiology, [facility] This chart was completed in part utilizing Speech Voice Recognition Software. Grammatical errors, random word insertions, pronoun errors, and incomplete sentences are an occasional consequence of this system due to software limitations, ambient noise, and hardware issues. Any formal questions or concerns about the content, text, or information contained within the body of this dictation should be directly addressed to the provider for clarification. Admission and Anticipated Discharge Date Admission Date: May 03, 2024 Supervising Physician Co-Signing Physician Notes Patient was seen and personally examined. Full assessment and plan as outlined by advanced provider above. Care and management discussed and personally endorsed Patient somewhat improved but still with persistent cough and findings of pneumonia. Atrial fibrillation rates variable but she still trending somewhat higher. Will increase beta-gerry therapy. As above will need future anticoagulation but dependent on stability of hemoglobin and absence of bleeding. Patient considering Eliquis as long-term management as above Subjective Patient resting in bed comfortably. Ongoing cough reported with associate SOB. No chest pain. Variable HR's noted on telemetry. Currently ranging 110-120. Patient is not symptomatic currently. Review of Systems Review of Systems: All systems reviewed & are unremarkable except as noted in HPI & below Physical Exam Physical Exam: General: Better, comfortable. HEENT: Atraumatic. Eyes: PER. Conjunctiva pink, sclera clear. Neck: Neck veins are flat Heart: Irregularly irregular at 100 bpm. No murmur. Lungs: Decreased breath sounds. No wheeze. Abdomen: +BS. Soft. Nontender. No masses or organomegaly. Extremities: No significant edema. No clubbing. No cyanosis. Results & Data Vital Signs (Past 12 Hours) Vital Signs Temp Pulse Pulse Resp BP Pulse Ox O2 Del Method 05/05/24 08:18 36.7 C 132 H 18 126/77 92 Room Air 05/05/24 06:47 130 H 05/05/24 04:00 05/05/24 03:02 37.0 C 118 H 18 134/85 94 Room Air O2 Del Method 05/05/24 08:18 05/05/24 06:47 05/05/24 04:00 Room Air 05/05/24 03:02 Laboratory Results Coagulation 05/05/24 Range/Units 06:26 PT 15.0 H (9.0-12.0) Seconds CBC 05/04/24 05/05/24 Range/Units 12:52 06:26 WBC 17.15 H (4.8-10.8) K/ul RBC 3.12 L (4.20-5.40) M/uL Hgb 9.1 L 9.0 L (12.0-16.0) g/dl Hct 27.8 L 26.8 L (37.0-47.0) % Plt Count 319 (130-400) K/uL Neut # (Auto) 14.55 H (1.40-6.50) K/uL Lymph # (Auto) 1.14 L (1.20-3.40) K/uL [place] # (Auto) 0.87 H (0.11-0.59) K/uL Eos # (Auto) 0.05 (0.00-0.50) K/uL Baso # (Auto) 0.02 (0.00-0.20) K/uL Comprehensive Metabolic Panel 05/05/24 Range/Units 06:26 Sodium 143 (136-145) mmol/L Potassium 3.9 (3.5-5.1) mmol/L Chloride 114 H (98-107) mmol/L Carbon Dioxide 21 (21-32) mmol/L BUN 22 (6-23) mg/dl Creatinine 1.03 (0.6-1.2) mg/dl Glucose 111 H (70-99(Fasting)) mg/dl Calcium 9.1 (8.6-10.3) mg/dl Intake and Output 05/04/24 05/05/24 05/05/24 22:59 06:59 14:59 Intake Total 1100 / 1500 200 / 1500 200 / 200 Output Total 150 / 226 76 / 226 Balance 950 / 1274 124 / 1274 200 / 200 Intake: IV 1100 / 1500 200 / 1500 200 / 200 Doxycycline Hyclate 100 mg In 100 / 200 Dextrose 5% Mini-B 100 ml @ 50 mls/hr IV Q12H [facility] Rx#:[id number] Magnesium Sulfate / D5w 1 gm In 100 / 100 100 ml @ 50 mls/hr IV ONE ONE Rx#:[id number] Nss + 20Meq KCl 20 meq In 1,000 1000 / 1000 ml @ 75 mls/hr IV .[id number] Rx#:[id number] Piperacillin/Tazobactam 4.5 gm 100 / 300 100 / 300 100 / 100 In 100 ml @ 25 mls/hr IV Q8H [facility] Rx#:[id number] Output: Urine Amount (Catheter) 150 / 225 75 / 225 [place]/Indwelling 150 / 225 75 / 225 # Bowel Movements Other: Other Intake Source NPO Weight 66.3 kg Weight Measurement Method Built in [facility] Diagnostic Findings Telemetry reviewed: Persistent atrial fibrillation with RVR ranging 100-120's. Overnight she had one transient episode of transient HR's in the 40's. Only lasted a few seconds during sleep. Medications Administered Current Inpatient Medications Acetaminophen (Acetaminophen 325 Mg Tab) 650 mg PO Q4H PRN PRN Reason: Pain or Fever Stop: 06/02/24 03:54 Piperacillin Sod/Tazobactam Sod (Zosyn) 4.5 gm in 100 mls @ 25 mls/hr IV Q8H [facility]; Protocol Stop: 05/08/24 13:59 Last Infusion: 05/05/24 09:39 Dose: Infused Doxycycline Hyclate 100 mg/ (Dextrose) 100 mls @ 50 mls/hr IV Q12H [facility] Stop: 05/08/24 20:59 Last Admin: 05/05/24 09:25 Dose: 50 mls/hr Pantoprazole Sodium (Protonix) 40 mg in 10 mls @ 5 mls/min IV BID [facility] Stop: 06/03/24 10:59 Last Admin: 05/05/24 09:26 Dose: 5 mls/min Levothyroxine Sodium (Levothyroxine Sodium 100 Mcg Tablet) 100 mcg PO DAILYBB [facility] Stop: 06/02/24 06:29 Last Admin: 05/04/24 08:22 Dose: 100 mcg Loratadine (Loratadine 10 Mg Tab) 10 mg PO QAM PRN PRN Reason: allergy season Stop: 06/02/24 02:01 Metoprolol Succinate (Metoprolol Succ 50mg Ext Rel Tab) 50 mg PO TID [facility] Stop: 06/04/24 11:59 Nystatin (Nystatin Susp 500,000 U/5 Ml Udc) 5 ml PO QID [facility] Stop: 05/13/24 12:59 Last Admin: 05/05/24 09:26 Dose: 5 ml (2) Pneumonia Laterality: unspecified laterality Lung location: unspecified part of lung Pneumonia type: due to unspecified organism Qualified Code(s): J18.9 - Pneumonia, unspecified organism
--- NOTE | 2024-05-05 11:50 | Fluoroscopy Report ---
FL video swallow CLINICAL HISTORY: assess for aspiration. TECHNIQUE: Video fluoroscopic evaluation of swallowing was performed in the AP and lateral projection s by the speech pathology staff. The patient is fed nectar-thick and thin liquid barium, a barium coa mónica wafer, and barium pudding. FLUOROSCOPY TIME: 2.2 minutes. COMPARISON: None FINDINGS: There is mild penetration with liquid and there is vallecular residual with all barium cons istencies. There is no aspiration. Patient was unable to swallow solids. IMPRESSION: No aspiration seen. ACT 112: Negative or not required by law. Electronically signed by: Espinoza Marie M.D. 05/05/2024 11:48 AM
[2024-05-05] MEDS: METOPROLOL SUCC 50MG EXT REL TAB PO SCH (12:21)
--- NOTE | 2024-05-05 19:05 | Hospitalist Progress Note ---
Date of Service May 05, 2024 Assessment & Plan (1) Severe sepsis: Plan: Ms. 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 #Generalized weakness #Severe sepsis, improved #Community-acquired pneumonia versus aspiration pneumonia Blood cultures: NGTD Lactic acid improved from 6.0, now 1.9 Broaden antibiotic coverage to Zosyn plus doxycycline Speech therapy : moderate dysphagia PT/OT rdered #New onset A-fib secondary to Above #History cardioembolic CVA, INR supratherapeutic without overt signs of bleed. echo with preserved ef Started metoprolol 25 mg p.o. twice daily Cardiology service consult - HR controlled with metoprolol XL TID #mild troponin elevation- stable, no cardiac symptoms likely demand ischemia from A fib, hypoxia #Acute blood loss Anemia #Suspected Upper GI Bleed in the setting of supratherapetuic INR (+) melena (+) FOBT Hg decreased from 12 to 9--> remaining stable ~[address] abd: no bleed Protonix IV BID GI consulted: declined further intervention at this time Continue to trend CBC, starting AC this evening #Status post fall #Mild rhabdomyolysis Initial CPK 637, downtrending pelvic x-ray: negative for fx patient's son reporting weakness, loss of coordination for the past few days: obtain CT head #Hypotension secondary to IV Cardizem infusion BP on the lower side CTM #Bronchial asthma no wheezing symptoms #Hypothyroidism euthyroid PT OT eval once medically stable DVT prophylaxis. Eliquis this pm Full code Disposition lives at home PT/OT eval Admission and Anticipated Discharge Date Admission Date: May 03, 2024 Subjective Reports feeling well overall denies gi work up but agreeable to start eliquis denies fevers or chills or other acute concerns at this time Physical Exam Constitutional: sitting in bedside chair Respiratory: coarse, but no distress, bilateral rhonchi Cardiovascular: irregularly irregular Results & Data Results & Data Vital Signs (Past 12 Hours) Vital Signs Temp Pulse Resp BP Pulse Ox O2 Del Method O2 Flow Rate 05/05/24 14:57 36.8 C 90 18 102/66 90 Nasal Cannula 2 05/05/24 11:38 36.8 C 88 18 113/76 92 Nasal Cannula 2 05/05/24 08:18 36.7 C 132 H 18 126/77 92 Room Air 05/05/24 08:00 Room Air Laboratory Results Short CBC 05/05/24 Range/Units 06:26 WBC 17.15 H (4.8-10.8) K/ul Hgb 9.0 L (12.0-16.0) g/dl Hct 26.8 L (37.0-47.0) % Plt Count 319 (130-400) K/uL BMP 05/05/24 06:26 Sodium 143 Potassium 3.9 Chloride 114 H Carbon Dioxide 21 BUN 22 Creatinine 1.03 Glucose 111 H Calcium 9.1 Medications Administered Home Medications Medication Instructions Recorded Confirmed Last Taken levothyroxine 100 mcg tablet 100 mcg PO DAILYBB 05/02/24 05/02/24 Unknown loratadine 10 mg tablet 10 mg PO QAM PRN allergy season 05/02/24 05/02/24 Unknown warfarin 4 mg tablet 4 - 8 mg PO DAILY 05/02/24 05/02/24 Unknown Active Medications Generic Name Dose Route Start Last Admin Trade Name Leonardoq PRN Reason Stop Dose Admin Piperacillin Sod/Tazobactam Sod 4.5 gm in 100 mls @ 25 mls/hr 05/03/24 14:00 05/05/24 18:35 Zosyn IV 05/08/24 13:59 Infused Q8H AMILCAR Infusion Protocol Doxycycline Hyclate 100 mg/ 100 mls @ 50 mls/hr 05/03/24 21:00 05/05/24 11:53 Dextrose IV 05/08/24 20:59 Infused Q12H AMILCAR Infusion Pantoprazole Sodium 40 mg in 10 mls @ 5 mls/min 05/04/24 11:00 05/05/24 09:26 Protonix IV 06/03/24 10:59 5 mls/min BID AMILCAR Administration Levothyroxine Sodium 100 mcg 05/03/24 06:30 05/04/24 08:22 Levothyroxine Sodium 100 Mcg Tablet PO 06/02/24 06:29 100 mcg DAILYBB AMILCAR Administration Metoprolol Succinate 50 mg 05/05/24 12:00 05/05/24 12:21 Metoprolol Succ 50mg Ext Rel Tab PO 06/04/24 11:59 50 mg TID AMILCAR Administration Nystatin 5 ml 05/03/24 13:00 05/05/24 17:02 Nystatin Susp 500,000 U/5 Ml Udc PO 05/13/24 12:59 5 ml QID AMILCAR Administration
[2024-05-05] MEDS: guaiFENesin 600 MG TABCR PO SCH (20:20)
[2024-05-05] MEDS: APIXABAN 5 MG TABLET PO SCH (20:20)
[2024-05-06] MEDS: METOPROLOL TARTRATE 1 MG/ML VIAL IV STA ×2 (02:30→05:42)
[2024-05-06 07:34] LABS: Basophils # (auto) 0.04 K/uL (0.00-0.20); Basophils % (auto) 0.2 %; Eosinophils # (auto) 0.09 K/uL (0.00-0.50); Eosinophils % (auto) 0.4 %; Hematocrit (blood only) 27.3 % (37.0-47.0); Immature Granulocytes # (auto) 0.49 K/uL (0.01-0.20); Immature Granulocytes % (auto) 2.4 %; Lymphocytes # (auto) 1.13 K/uL (1.20-3.40); Lymphocytes % (auto) 5.6 %; Mean Corpuscular Hemoglobin 28.7 pg (25.0-34.0); Mean Corpuscular Volume 86.9 fL (80.0-100.0); Mean Platelet Volume 10.6 fL (9.4-12.4); Monocytes # (auto) 0.96 K/uL (0.11-0.59); Monocytes % (auto) 4.7 %; Neutrophils # (auto) 17.62 K/uL (1.40-6.50); Neutrophils % (auto) 86.7 %; Platelet Count 382 K/uL (130-400); RDW Coefficient of Variation 14.6 % (11.5-14.5); RDW Standard Deviation 46.2 fL (36.4-46.3); Red Blood Count 3.14 M/uL (4.20-5.40); White Blood Count 20.33 K/ul (4.8-10.8)
--- NOTE | 2024-05-06 07:40 | Hospitalist Progress Note ---
Date of Service May 06, 2024 Assessment & Plan (1) Severe sepsis: Plan: Ms. 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 #Leukocytosis #abnormal chest ct Repeat UA iso carney, c diff screen if diarrhea given abx Chest CT: 1. Cardiomegaly with interstitial pulmonary edema and moderate pleural effusion s. 2. Patchy multifocal bilateral airspace opacities suggestive of superimposed multifocal pneumonia. Continued follow-up is needed. 3. Mild mediastinal lymphadenopathy, likely reactive. 4. Fluid-filled esophagus with tracheobronchial secretions. Correlate clinically to exclude aspiration. No localizing symptoms s/p IV lasix 20mg now #Hematuria present x 2 days, seemingly more dark and ary in color UA not consistent with infection prior to apixaban initiation HGB stable question if 2/2 rhabdo if progressive will consult urology #Generalized weakness #Severe sepsis, improved #Community-acquired pneumonia versus aspiration pneumonia Blood cultures: NGTD Lactic acid improved from 6.0, now 1.9 Broaden antibiotic coverage to Zosyn plus doxycycline Speech therapy : moderate dysphagia PT/OT:SNF #New onset A-fib secondary to Above #History cardioembolic CVA, INR supratherapeutic without overt signs of bleed. echo with preserved ef Started metoprolol 25 mg p.o. twice daily Cardiology service consult - HR controlled with metoprolol XL 100mg BID #mild troponin elevation- stable, no cardiac symptoms likely demand ischemia from A fib, hypoxia #Acute blood loss Anemia *stable #Suspected Upper GI Bleed in the setting of supratherapetuic INR (+) melena (+) FOBT, on repeat negative Hg decreased from 12 to 9--> remaining stable ~[address] abd: no bleed Protonix IV BID GI consulted: declined further intervention at this time Continue to trend CBC, starting AC this evening #Status post fall #Mild rhabdomyolysis Initial CPK 637, downtrending pelvic x-ray: negative for fx patient's son reporting weakness, loss of coordination for the past few days: encephalomalacia, old infarction #Hypotension secondary to IV Cardizem infusion BP on the lower side CTM #Bronchial asthma no wheezing symptoms #Hypothyroidism euthyroid PT OT SNF DVT prophylaxis. Eliquis Full code Disposition lives at home PT/OT eval Admission and Anticipated Discharge Date Admission Date: May 03, 2024 Subjective Reports feeling well today hematuria noted, however, more ary brown then gross blood--noted x2 days Denies any chest pain, sob, or other acute concerns outside of weakness Physical Exam Constitutional: WD/WN, vitals as above Respiratory: normal respiratory effort, lungs clear to auscultation Cardiovascular: irregular irregular Results & Data Results & Data Vital Signs (Past 12 Hours) Vital Signs Temp Pulse Pulse Resp BP Pulse Ox O2 Del Method 05/06/24 07:21 121 H 05/06/24 05:57 131 H 05/06/24 05:42 135 H 05/06/24 05:19 132 H 103/69 05/06/24 02:45 121 H 05/06/24 02:30 126 H 05/06/24 01:59 37.2 C 135 H 18 110/71 93 Room Air 05/05/24 23:05 36.6 C 84 18 108/70 94 Nasal Cannula 05/05/24 20:15 Room Air O2 Flow Rate 05/06/24 07:21 05/06/24 05:57 05/06/24 05:42 05/06/24 05:19 05/06/24 02:45 05/06/24 02:30 05/06/24 01:59 05/05/24 23:05 2 05/05/24 20:15 Laboratory Results Short CBC 05/06/24 Range/Units 06:27 WBC 20.33 H (4.8-10.8) K/ul Hgb 9.0 L (12.0-16.0) g/dl Hct 27.3 L (37.0-47.0) % Plt Count 382 (130-400) K/uL [facility] 05/06/24 06:27 Sodium 142 Potassium 3.8 Chloride 111 H Carbon Dioxide 23 BUN 23 Creatinine 1.04 Glucose 106 H Calcium 9.2 Medications Administered Home Medications Medication Instructions Recorded Confirmed Last Taken levothyroxine 100 mcg tablet 100 mcg PO DAILYBB 05/02/24 05/02/24 Unknown loratadine 10 mg tablet 10 mg PO QAM PRN allergy season 05/02/24 05/02/24 Unknown warfarin 4 mg tablet 4 - 8 mg PO DAILY 05/02/24 05/02/24 Unknown Active Medications Generic Name Dose Route Start Last Admin Trade Name Freq PRN Reason Stop Dose Admin Apixaban 5 mg 05/05/24 21:00 05/06/24 08:16 Apixaban 5 Mg Tablet PO 06/04/24 20:59 5 mg BID AMILCAR Administration Guaifenesin 600 mg 05/05/24 21:00 05/06/24 08:16 Guaifenesin 600 Mg Tabcr PO 06/04/24 20:59 600 mg Q12 AMILCAR Administration Piperacillin Sod/Tazobactam Sod 4.5 gm in 100 mls @ 25 mls/hr 05/03/24 14:00 05/06/24 14:29 Zosyn IV 05/08/24 13:59 25 mls/hr Q8H AMILCAR Administration Protocol Doxycycline Hyclate 100 mg/ 100 mls @ 50 mls/hr 05/03/24 21:00 05/06/24 11:54 Dextrose IV 05/08/24 20:59 Infused Q12H AMILCAR Infusion Pantoprazole Sodium 40 mg in 10 mls @ 5 mls/min 05/04/24 11:00 05/06/24 09:38 Protonix IV 06/03/24 10:59 5 mls/min BID AMILCAR Administration Levothyroxine Sodium 100 mcg 05/03/24 06:30 05/06/24 05:42 Levothyroxine Sodium 100 Mcg Tablet PO 06/02/24 06:29 100 mcg DAILYBB AMILCAR Administration Nystatin 5 ml 05/03/24 13:00 05/06/24 14:26 Nystatin Susp 500,000 U/5 Ml Udc PO 05/13/24 12:59 5 ml QID AMILCAR Administration
[2024-05-06 07:45] LABS: BUN Creatinine Ratio 22.1 (10-20); Calcium 9.2 mg/dl (8.6-10.3); Creatinine Clr Calc Pharmacy 44.1 ml/min; Magnesium 1.9 mg/dl (1.7-2.4); Phosphorus 3.2 mg/dl (2.5-4.9); Potassium 3.8 mmol/L (3.5-5.1)
[2024-05-06 07:59] LABS: INR 1.9 (0.9-1.1); Prothrombin Time 19.8 Seconds (9.0-12.0)
[2024-05-06] MEDS: SODIUM CHLORIDE 0.9% 500 ML IV ONE (08:13)
--- NOTE | 2024-05-06 09:46 | CT Scan Report ---
CT chest diagnostic wo con CT DOSE: 318.04 mGy.cm CLINICAL HISTORY: 78 years-old Female with bilateral pneumonia. Acute shortness breath with history of reported pneumonia TECHNIQUE: Multiaxial CT images of the chest were performed without contrast. A dose lowering techni que was utilized adhering to the principles of ALARA. COMPARISON: CT abdomen and pelvis 05/04/2024 FINDINGS: Mild likely reactive mediastinal lymphadenopathy. Heart is upper limits of normal in size. Decreased attenuation of the cardiac blood pool suggestive of anemia. No pericardial effusion or thor acic aortic aneurysm. Probable pulmonary hypertension with transverse dimension of the main pulmonary artery measuring 3 cm. Moderate pleural effusions. No pneumothorax. Interlobular septal thickening. Left greater than right patchy multifocal airspace opacities which are most pronounced in the left gr eater than right lung bases with air bronchograms and intermixed groundglass densities. Tracheobronch ial secretions. Fluid-filled esophagus. No acute upper abdominal abnormality. Unremarkable soft tissues. No acute fracture. IMPRESSION: 1. Cardiomegaly with interstitial pulmonary edema and moderate pleural effusions. 2. Patchy multifocal bilateral airspace opacities suggestive of superimposed multifocal pneumonia. Co ntinued follow-up is needed. 3. Mild mediastinal lymphadenopathy, likely reactive. 4. Fluid-filled esophagus with tracheobronchial secretions. Correlate clinically to exclude aspiratio n. ACT 112: Negative or not required by law. Electronically signed by: Mateusz Salgado M.D. 05/06/2024 9:44 AM
--- NOTE | 2024-05-06 10:45 | Cardiology Progress Note ---
Date of Service May 06, 2024 Assessment & Plan (1) Severe sepsis: (2) Pneumonia: (3) Atrial fibrillation with RVR: Plan 05/04/24 78-year-old female admitted with severe sepsis secondary to left-sided pneumonia. Cardiology consultation requested secondary to new onset atrial fibrillation with a rapid ventricular response. 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 INR greater than 10 on presentation, 1.3 this AM after receiving two doses of vitamin K Severe sepsis/pneumonia/thrush. As per Hospitalist New onset atrial fibrillation with rapid ventricular response. [id number] Score 5 points - Asymptomatic - Recommend rate control strategy. - Metoprolol, new this admission, increased now to 50 mg twice a day. - Continue telemetry - Hold anticoagulation for now; high risk for heparin noting drop in hemoglobin since admission - No overt bleeding noted by history or examination - Consider further evaluation - CT chest/A/P - Recommend alternative to warfarin anticoagulation - apixaban (Eliquis) 5 mg twice per day; she plans to discuss this with her nephew who is a pharmacist. 05/05/24: Persistent afib noted again today. Variable HR's Transition to metoprolol succinate and increase to 50 mg TID Monitor BP She is asymptomatic. Hold anticoagulation for now given drop in Hbg and + FOBT. Stable this morning at 9.0. No reported GI bleeding currently. No IV heparin for now. Will need future anticoagulation. She has been on warfarin historically, but with INR > 10 on arrival, would recommend transitioning to Eliquis 5 mg BID. Patient wishes to discuss with her family members. Ongoing rate control strategy recommended for afib. Echo during admission with preserved LVEF. Normal wall motion and no significant valvular disease. Moderately dilated LA. Ongoing treatment for sepsis/pneumonia per hospitalist. Having swallowing eval this morning. Negative blood cultures. 05/06/24: Persistent afib. Heart rates slowly trending downward. Currently 90-120's at rest. Increase metoprolol succinate to 100 mg BID this morning. Started on Apixaban 5 mg BID last evening. Consider adding digoxin if needed. Ongoing rate control recommended for now She does have significant hematuria this morning. Discussed with hospitalist and this was present for the last 1-2 days. Hbg stable. Hospitalist aware. Monitor. Chest CT this morning wiht persistent multilobar pneumonia. Also with b/l pleural effusions. +7 L since admission She does not examine as significantly volume overloaded but would consider dose of IV lasix Continue antibiotics for pneumonia per hospitalist. Case discussed with Dr. King. Will follow. I spent a total of 40 minutes on the date of service in preparation, delivery, and documentation of the care provided to this patient, excluding any time spent in the performance of separately billed services. Clarisse Juan PA-C Department of Cardiology, [facility] This chart was completed in part utilizing Speech Voice Recognition Software. Grammatical errors, random word insertions, pronoun errors, and incomplete s entences are an occasional consequence of this system due to software limitations, ambient noise, and hardware issues. Any formal questions or concerns about the content, text, or information contained within the body of this dictation should be directly addressed to the provider for clarification. Admission and Anticipated Discharge Date Admission Date: May 03, 2024 Supervising Physician Co-Signing Physician Notes Patient was seen and personally examined. Full assessment and plan as outlined by advanced provider above. Care and management discussed and personally endorsed Patient somewhat improved but still with persistent cough and findings of pneumonia. Atrial fibrillation rates variable but she still not completely controlled. Will increase beta-gerry therapy. As above will need future anticoagulation but dependent on stability of hemoglobin and absence of bleeding. Prado catheter in place. Would potentially benefit from single dose IV furosemide in next 24 Hours Subjective Patient resting in chair. Reports she is feeling slightly better than yesterday. SOB improving. Still has cough. Chest CT repeated this morning. B/L pleural effusions noted with evidence of persistent pneumonia. Patient denies chest pain. HR's improving. She was started on Abixaban last night. She has hematuria this morning. Discussed with hospitalist. This was present yesterday and repeat infectious work up pending. This was present before Apixaban started. Hbg stable. Review of Systems Review of Systems: All systems reviewed & are unremarkable except as noted in HPI & below Physical Exam Physical Exam: General: Better, comfortable. HEENT: Atraumatic. Eyes: PER. Conjunctiva pink, sclera clear. Neck: Neck veins are flat Heart: Irregularly irregular at 90-100 bpm. No murmur. Lungs: Decreased breath sounds. No wheeze. Abdomen: +BS. Soft. Nontender. No masses or organomegaly. Extremities: No significant edema. No clubbing. No cyanosis. Results & Data Vital Signs (Past 12 Hours) Vital Signs Temp Pulse Pulse Resp BP Pulse Ox O2 Del Method 05/06/24 07:58 37.0 C 126 H 18 118/59 L 96 Room Air 05/06/24 07:21 121 H 05/06/24 05:57 131 H 05/06/24 05:42 135 H 05/06/24 05:19 132 H 103/69 05/06/24 02:45 121 H 05/06/24 02:30 126 H 05/06/24 01:59 37.2 C 135 H 18 110/71 93 Room Air 05/05/24 23:05 36.6 C 84 18 108/70 94 Nasal Cannula O2 Flow Rate 05/06/24 07:58 2 05/06/24 07:21 05/06/24 05:57 05/06/24 05:42 05/06/24 05:19 05/06/24 02:45 05/06/24 02:30 05/06/24 01:59 05/05/24 23:05 2 Laboratory Results Coagulation 05/06/24 Range/Units 06:27 PT 19.8 H (9.0-12.0) Seconds CBC 05/06/24 Range/Units 06:27 WBC 20.33 H (4.8-10.8) K/ul RBC 3.14 L (4.20-5.40) M/uL Hgb 9.0 L (12.0-16.0) g/dl Hct 27.3 L (37.0-47.0) % Plt Count 382 (130-400) K/uL Neut # (Auto) 17.62 H (1.40-6.50) K/uL Lymph # (Auto) 1.13 L (1.20-3.40) K/uL [place] # (Auto) 0.96 H (0.11-0.59) K/uL Eos # (Auto) 0.09 (0.00-0.50) K/uL Baso # (Auto) 0.04 (0.00-0.20) K/uL Comprehensive Metabolic Panel 05/06/24 Range/Units 06:27 Sodium 142 (136-145) mmol/L Potassium 3.8 (3.5-5.1) mmol/L Chloride 111 H (98-107) mmol/L Carbon Dioxide 23 (21-32) mmol/L BUN 23 (6-23) mg/dl Creatinine 1.04 (0.6-1.2) mg/dl Glucose 106 H (70-99(Fasting)) mg/dl Calcium 9.2 (8.6-10.3) mg/dl Intake and Output 05/05/24 05/06/24 05/06/24 22:59 06:59 14:59 Intake Total 500 / 1000 200 / 1000 100 / 100 Output Total 200 / 300 100 / 300 Balance 300 / 700 100 / 700 100 / 100 Intake: IV 200 / 600 100 / 600 100 / 100 Doxycycline Hyclate 100 mg In 100 / 200 Dextrose 5% Mini-B 100 ml @ 50 mls/hr IV Q12H [facility] Rx#:[id number] Piperacillin/Tazobactam 4.5 gm 100 / 300 100 / 300 100 / 100 In 100 ml @ 25 mls/hr IV Q8H [facility] Rx#:[id number] Oral 300 / 400 100 / 400 Output: Urine Amount (Catheter) 200 / 300 100 / 300 Prado/Indwelling 200 / 300 100 / 300 Diagnostic Findings Telemetry reviewed: Persistent atrial fibrillation with rates currently ranging 90-110 this morning after morning medications. Chest CT 05/06/24 07:36 CT chest diagnostic wo con CT DOSE: 318.04 mGy.cm CLINICAL HISTORY: 78 years-old Female with bilateral pneumonia. Acute shortness breath with history of reported pneumonia TECHNIQUE: Multiaxial CT images of the chest were performed without contrast. A dose lowering technique was utilized adhering to the principles of ALARA. COMPARISON: CT abdomen and pelvis 05/04/2024 FINDINGS: Mild likely reactive mediastinal lymphadenopathy. Heart is upper limits of normal in size. Decreased attenuation of the cardiac blood pool suggestive of anemia. No pericardial effusion or thoracic aortic aneurysm. Probable pulmonary hypertension with transverse dimension of the main pulmonary artery measuring 3 cm. Moderate pleural effusions. No pneumothorax. Interlobular septal thickening. Left greater than right patchy multifocal airspace opacities which are most pronounced in the left greater than right lung bases with air bronchograms and intermixed groundglass densities. Tracheobronchial secretions. Fluid-filled esophagus. No acute upper abdominal abnormality. Unremarkable soft tissues. No acute fracture. IMPRESSION: 1. Cardiomegaly with interstitial pulmonary edema and moderate pleural effusions. 2. Patchy multifocal bilateral airspace opacities suggestive of superimposed multifocal pneumonia. Continued follow-up is needed. 3. Mild mediastinal lymphadenopathy, likely reactive. 4. Fluid-filled esophagus with tracheobronchial secretions. Correlate clinically to exclude aspiration. ACT 112: Negative or not required by law. Electronically signed by: Mateusz Salgado M.D. 05/06/2024 9:44 AM Medications Administered Current Inpatient Medications Acetaminophen (Acetaminophen 325 Mg Tab) 650 mg PO Q4H PRN PRN Reason: Pain or Fever Stop: 06/02/24 03:54 Apixaban (Apixaban 5 Mg Tablet) 5 mg PO BID [facility] Stop: 06/04/24 20:59 Last Admin: 05/06/24 08:16 Dose: 5 mg Guaifenesin (Guaifenesin 600 Mg Tabcr) 600 mg PO Q12 [facility] Stop: 06/04/24 20:59 Last Admin: 05/06/24 08:16 Dose: 600 mg Piperacillin Sod/Tazobactam Sod (Zosyn) 4.5 gm in 100 mls @ 25 mls/hr IV Q8H [facility]; Protocol Stop: 05/08/24 13:59 Last Infusion: 05/06/24 10:21 Dose: Infused Doxycycline Hyclate 100 mg/ (Dextrose) 100 mls @ 50 mls/hr IV Q12H [facility] Stop: 05/08/24 20:59 Last Admin: 05/06/24 09:57 Dose: 50 mls/hr Pantoprazole Sodium (Protonix) 40 mg in 10 mls @ 5 mls/min IV BID [facility] Stop: 06/03/24 10:59 Last Admin: 05/06/24 09:38 Dose: 5 mls/min Levothyroxine Sodium (Levothyroxine Sodium 100 Mcg Tablet) 100 mcg PO DAILYBB [facility] Stop: 06/02/24 06:29 Last Admin: 05/06/24 05:42 Dose: 100 mcg Loratadine (Loratadine 10 Mg Tab) 10 mg PO QAM PRN PRN Reason: allergy season Stop: 06/02/24 02:01 Metoprolol Succinate (Metoprolol Succ 50mg Ext Rel Tab) 100 mg PO BID [facility] Stop: 06/05/24 20:59 Nystatin (Nystatin Susp 500,000 U/5 Ml Udc) 5 ml PO QID [facility] Stop: 05/13/24 12:59 Last Admin: 05/06/24 09:43 Dose: 5 ml Sodium Chloride (Sodium Chlor 7% 4 Ml Neb) 4 ml NEB BIDR [facility] Stop: 06/05/24 18:59 (2) Pneumonia Laterality: unspecified laterality Lung location: unspecified part of lung Pneumonia type: due to unspecified organism Qualified Code(s): J18.9 - Pneumonia, unspecified organism
[2024-05-06] MEDS: METOPROLOL SUCC 50MG EXT REL TAB PO ONE (11:00)
[2024-05-06 15:36] LABS: Appearance Urine Cloudy (Clear); Bilirubin Urine 1+ (Negative); Blood Urine 3+ (Negative); Color Urine Brown; Glucose Urine UA Negative (Negative); Ketones Urine Negative (Negative); Leukocyte Esterase Urine Negative (Negative); Nitrite Urine Negative (Negative); Protein Urine 3+ (Negative); Specific Gravity Urine >= 1.030 (1.000-1.030); Urobilinogen Urine Negative (Negative); pH Urine 5.5 (4.5-7.5)
[2024-05-06 15:43] LABS: Epithelial Cell Urine 0-2 /hpf (0-2); RBC Urine >20 /hpf (0-2)
[2024-05-06 15:44] LABS: Bacteria Urine None Seen (None Seen); WBC Urine >50 /hpf (0-5)
[2024-05-06] MEDS: FUROSEMIDE INJ 20 MG/2 ML VIAL IV ONE (15:59)
[2024-05-06] MEDS: POTASSIUM CHLORIDE 20 MEQ/15 ML UDC PO STA (17:35)
[2024-05-06] MEDS: POTASSIUM CHLORIDE CRTAB 20 MEQ TABCR PO STA ×2 (17:35)
[2024-05-06] MEDS: SODIUM CHLOR 7% 4 ML NEB NEB SCH (20:12)
[2024-05-06] MEDS: METOPROLOL SUCC 50MG EXT REL TAB PO SCH (20:58)
[2024-05-07] MEDS: DIGOXIN 125 MCG in SYRINGE 9.5 ML IV STA (04:31)
[2024-05-07] MEDS: SODIUM CHLORIDE 0.9% 250 ML IV ONE (04:32)
[2024-05-07 06:52] LABS: Basophils # (auto) 0.05 K/uL (0.00-0.20); Basophils % (auto) 0.3 %; Eosinophils # (auto) 0.18 K/uL (0.00-0.50); Hematocrit (blood only) 28.6 % (37.0-47.0); Hemoglobin 9.6 g/dl (12.0-16.0); Immature Granulocytes # (auto) 0.49 K/uL (0.01-0.20); Immature Granulocytes % (auto) 2.6 %; Lymphocytes # (auto) 1.38 K/uL (1.20-3.40); Lymphocytes % (auto) 7.3 %; Mean Corpuscular Hemoglobin 29.1 pg (25.0-34.0); Mean Corpuscular Hgb Conc 33.6 g/dL (32.0-36.0); Mean Corpuscular Volume 86.7 fL (80.0-100.0); Mean Platelet Volume 10.4 fL (9.4-12.4); Monocytes # (auto) 0.83 K/uL (0.11-0.59); Monocytes % (auto) 4.4 %; Neutrophils # (auto) 15.92 K/uL (1.40-6.50); Neutrophils % (auto) 84.4 %; Platelet Count 384 K/uL (130-400); RDW Coefficient of Variation 14.6 % (11.5-14.5); RDW Standard Deviation 45.4 fL (36.4-46.3); White Blood Count 18.85 K/ul (4.8-10.8)
[2024-05-07 07:12] LABS: Albumin Level 2.6 gm/dl (3.4-5.0); Bilirubin Direct 0.5 mg/dl (0-0.2); Calcium 8.7 mg/dl (8.6-10.3); Potassium 4.2 mmol/L (3.5-5.1)
[2024-05-07 07:18] LABS: BUN Creatinine Ratio 23.1 (10-20); Creatinine Clr Calc Pharmacy 42.4 ml/min; Total Protein 6.1 gm/dl (6.0-8.3)
[2024-05-07 07:21] LABS: INR 2.9 (0.9-1.1)
[2024-05-07 07:36] LABS: Folate (Folic Acid),Ser orPlas 13.65 ng/ml (>5.38)
[2024-05-07 07:49] LABS: Ferritin 504.6 ng/ml (8-388)
[2024-05-07] MEDS ORDERED: Nursing to Pharmacy Communication SCH (09:30)
[2024-05-07] MEDS: DOXYCYCLINE HYCLATE 100 MG CAP PO SCH (09:59)
--- NOTE | 2024-05-07 10:44 | Urology Consultation ---
Date of Consultation May 07, 2024 Assessment & Plan (1) Hematuria: 78-year-old female admitted for severe sepsis secondary to pneumonia, new onset of atrial fibrillation, and supratherapeutic INR. Patient developed hematuria during admission and urology is consulted for evaluation. Patient afebrile with stable vitals Labs reviewedcreatinine 1.08, WBC 18.85, hemoglobin 9.6 UA on admission with 0-2 RBC/hpf Prado catheter placed on admission, gross hematuria subsequently developed Repeat UA 05/06 with microscopic hematuria (>20 RBC/hpf), not suggestive of infection Urine culture is pendingfollow culture She is currently on antibiotic therapy for pneumonia CT imaging showed no stones or hydronephrosis Hematuria may be due to Prado irritation in the setting of anticoagulation, however, recommend hematuria workup with cystoscopy as outpatient Prado is draining appropriately, light hunt in tubing, no clots Nursing can hand irrigate catheter if it becomes obstructed Can consider removal of Prado catheter for voiding trial now or once urine is clearer Discussed outpatient follow-up with urology for cystoscopy She voiced concern with ability to get transportation to our office and she receives all of her care through [facility], can follow with [facility] urology if desired Will offer her an appointment with our office will sign off, contact our service with any additional questions or concerns History of Present Illness Reason for Consultation: Hematuria Requesting Physician: Dr. Terrell Attending Physician: Bessy Terrell MD History of Present Illness This is a 78-year-old female who presented to the emergency department on 05/02/2024 for evaluation of weakness and upper respiratory symptoms. She was admitted to the hospital medicine service for severe sepsis secondary to pneumonia, new onset of atrial fibrillation with RVR, and supratherapeutic INR. She is receiving ongoing treatment for sepsis/pneumonia with antibiotics. Cardiology following for new onset atrial fibrillation. She received vitamin K for supratherapeutic INR and was switched to Eliquis during admission. GI was consulted for anemia and heme positive stools, patient declined intervention. Urology is consulted today for hematuria. CT abdomen pelvis without contrast on 05/04/2024 showed no stones or hydronephrosis. Prado catheter present within the bladder, bladder is decompressed. Urinalysis 05/03/2023 showed 2+ protein, trace ketones, trace blood, 0-2 RBC/hpf, negative for bacteria Urinalysis 05/06/2024 showed 3+ protein, 3+ blood, >20 RBC/hpf, >50 WBC/hpf, 0-2 epithelial cells and negative for bacteria Urine culture is pending Labs todaycreatinine 1.08, WBC 18.85, hemoglobin 9.6 Patient seen and examined at bedside this morning. Prado has been present during admission. Hematuria developed. She denies dysuria. No suprapubic or flank discomfort. No prior history of hematuria. No fever or chills. Denies history of frequent UTIs. No family history of malignancy. No personal history of stones. Never smoker. Allergies Allergy/AdvReac Type Severity Reaction Status Date / Time cat dander Allergy Unknown Verified 05/03/24 02:26 grass pollen Allergy Unknown Verified 05/03/24 02:26 tree and shrub pollen Allergy Unknown Verified 05/03/24 02:26 Home Medications Medication Instructions Recorded Confirmed Type levothyroxine 100 mcg tablet 100 mcg PO DAILYBB 05/02/24 05/02/24 History loratadine 10 mg tablet 10 mg PO QAM PRN allergy season 05/02/24 05/02/24 History warfarin 4 mg tablet 4 - 8 mg PO DAILY 05/02/24 05/02/24 History Patient History Social History Smoking Status: Never smoker Hx Alcohol Use: No Hx Substance Use: No Preferred Language: Guyanese Communication Ability: Effective Cook Tortilla Required: No Beliefs That Will Affect Care: None Current Living Situation: Family Other Information That Helps Us Care for You: No Feels Safe at Home: Yes Safety Concerns: Feels Safe At This Time Assistive Devices: None Review of Systems Review of Systems: All systems reviewed & are unremarkable except as noted in HPI & below Physical Exam Constitutional: well developed and well nourished; no acute distress Respiratory: normal respiratory effort; no respiratory distress and no labored breathing Gastrointestinal (Abdomen): Inspection/Auscultation: abdomen normal to inspection Musculoskeletal: Head/Neck/Chest: normocephalic Neurologic: moves all extremities and awake Psychiatric: Orientation: alert and oriented x 3 Genitourinary: Prado draining light hunt Results & Data Vital Signs (Past 12 Hours) Vital Signs Temp Pulse Pulse Resp BP BP Pulse Ox 05/07/24 07:52 37.2 C 71 20 103/69 95 05/07/24 07:06 69 05/07/24 04:11 37.0 C 98 H 16 96/57 L 94 05/07/24 00:46 37.0 C 126 H 18 110/66 95 O2 Del Method 05/07/24 07:52 Room Air 05/07/24 07:06 05/07/24 04:11 Room Air 05/07/24 00:46 Room Air PG Care Time/CCT Total # of Minutes Spent Total Time Spent with Patient: Total time spent is greater than 50% in coordination of care (as documented) at patient's floor/unit and/or counseling patient: Coding Level of Care Code 35713 INT INP/OBS CARE 2/55MIN Diagnoses Hematuria R31.9
[2024-05-07] MEDS: FUROSEMIDE INJ 20 MG/2 ML VIAL IV ONE (11:25)
[2024-05-07] MEDS: POTASSIUM CHLORIDE CRTAB 20 MEQ TABCR PO ONE (11:26)
--- NOTE | 2024-05-07 12:31 | Cardiology Progress Note ---
Date of Service May 07, 2024 Assessment & Plan (1) Severe sepsis: (2) Pneumonia: (3) Atrial fibrillation with RVR: Plan 05/04/24 78-year-old female admitted with severe sepsis secondary to left-sided pneumonia. Cardiology consultation requested secondary to new onset atrial fibrillation with a rapid ventricular response. 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 INR greater than 10 on presentation, 1.3 this AM after receiving two doses of vitamin K Severe sepsis/pneumonia/thrush. As per Hospitalist New onset atrial fibrillation with rapid ventricular response. [id number] Score 5 points - Asymptomatic - Recommend rate control strategy. - Metoprolol, new this admission, increased now to 50 mg twice a day. - Continue telemetry - Hold anticoagulation for now; high risk for heparin noting drop in hemoglobin since admission - No overt bleeding noted by history or examination - Consider further evaluation - CT chest/A/P - Recommend alternative to warfarin anticoagulation - apixaban (Eliquis) 5 mg twice per day; she plans to discuss this with her nephew who is a pharmacist. 05/05/24: Persistent afib noted again today. Variable HR's Transition to metoprolol succinate and increase to 50 mg TID Monitor BP She is asymptomatic. Hold anticoagulation for now given drop in Hbg and + FOBT. Stable this morning at 9.0. No reported GI bleeding currently. No IV heparin for now. Will need future anticoagulation. She has been on warfarin historically, but with INR > 10 on arrival, would recommend transitioning to Eliquis 5 mg BID. Patient wishes to discuss with her family members. Ongoing rate control strategy recommended for afib. Echo during admission with preserved LVEF. Normal wall motion and no significant valvular disease. Moderately dilated LA. Ongoing treatment for sepsis/pneumonia per hospitalist. Having swallowing eval this morning. Negative blood cultures. 05/06/24: Persistent afib. Heart rates slowly trending downward. Currently 90-120's at rest. Increase metoprolol succinate to 100 mg BID this morning. Started on Apixaban 5 mg BID last evening. Consider adding digoxin if needed. Ongoing rate control recommended for now She does have significant hematuria this morning. Discussed with hospitalist and this was present for the last 1-2 days. Hbg stable. Hospitalist aware. Monitor. Chest CT this morning with persistent multilobar pneumonia. Also with b/l pleural effusions. +7 L since admission IV lasix to be given Continue antibiotics for pneumonia per hospitalist. 05/07/24: Patient successfully converted to NSR this morning from atrial fibrillation Continue Eliquis 5 mg BID for stroke prevention Continue metoprolol 100 mg BID for now. Monitor for bradycardia now that she is in NSR. Currently HR's in the 60s Respiratory status improving. Continue antibiotics hospitalist One additional dose of IV lasix today Volume status improved from yesterday I spent a total of 30 minutes on the date of service in preparation, delivery, and documentation of the care provided to this patient, excluding any time spent in the performance of separately billed services. Clarisse Juan PA-C Department of Cardiology, [facility] This chart was completed in part utilizing Speech Voice Recognition Software. Grammatical errors, random word insertions, pronoun errors, and incomplete sentences are an occasional consequence of this system due to software limitations, ambient noise, and hardware issues. Any formal questions or concerns about the content, text, or information contained within the body of this dictation should be directly addressed to the provider for clarification. Admission and Anticipated Discharge Date Admission Date: May 03, 2024 Supervising Physician Co-Signing Physician Notes Patient was seen and personally examined. Assessment and plan as outlined by advanced provider as above. Care and management personally endorsed 78-year-old female referred for management of atrial fibrillation in the setting of acute pneumonia. Patient has spontaneously converted to sinus rhythm earlier today. Clinically feels improved cough still present. Lower extremity edema noted Plan and recommendations as above Subjective Patient sitting in chair. Reports feeling "better" today. SOB improving. Cough improving. No chest pain. No palpitations. No dizziness. Increased edema noted the last few days. She received dose of IV lasix yesterday and mild improvement. Still with mild edema b/l. Review of Systems Review of Systems: All systems reviewed & are unremarkable except as noted in HPI & below Physical Exam Physical Exam: General: Better, comfortable. HEENT: Atraumatic. Eyes: PER. Conjunctiva pink, sclera clear. Neck: Neck veins are flat Heart: Irregularly irregular at 90-100 bpm. No murmur. Lungs: Decreased breath sounds. No wheeze. Abdomen: +BS. Soft. Nontender. No masses or organomegaly. Extremities: 1+ pretibial and pedal edema b/l. No clubbing. No cyanosis. Results & Data Vital Signs (Past 12 Hours) Vital Signs Temp Pulse Pulse Resp BP BP Pulse Ox 05/07/24 11:44 36.5 C 69 20 99/62 L 98 05/07/24 07:52 37.2 C 71 20 103/69 95 05/07/24 07:06 69 05/07/24 04:11 37.0 C 98 H 16 96/57 L 94 05/07/24 00:46 37.0 C 126 H 18 110/66 95 O2 Del Method 05/07/24 11:44 Room Air 05/07/24 07:52 Room Air 05/07/24 07:06 05/07/24 04:11 Room Air 05/07/24 00:46 Room Air Laboratory Results Cardiac Enzymes 05/07/24 Range/Units 06:26 AST 40 H (13-39) U/L Coagulation 05/07/24 Range/Units 06:26 PT 29.0 H (9.0-12.0) Seconds CBC 05/07/24 Range/Units 06:26 WBC 18.85 H (4.8-10.8) K/ul RBC 3.30 L (4.20-5.40) M/uL Hgb 9.6 L (12.0-16.0) g/dl Hct 28.6 L (37.0-47.0) % Plt Count 384 (130-400) K/uL Neut # (Auto) 15.92 H (1.40-6.50) K/uL Lymph # (Auto) 1.38 (1.20-3.40) K/uL [place] # (Auto) 0.83 H (0.11-0.59) K/uL Eos # (Auto) 0.18 (0.00-0.50) K/uL Baso # (Auto) 0.05 (0.00-0.20) K/uL Comprehensive Metabolic Panel 05/07/24 Range/Units 06:26 Sodium 136 (136-145) mmol/L Potassium 4.2 (3.5-5.1) mmol/L Chloride 109 H (98-107) mmol/L Carbon Dioxide 19 L (21-32) mmol/L BUN 25 H (6-23) mg/dl Creatinine 1.08 (0.6-1.2) mg/dl Glucose 134 H (70-99(Fasting)) mg/dl Calcium 8.7 (8.6-10.3) mg/dl Direct Bilirubin 0.5 H (0-0.2) mg/dl AST 40 H (13-39) U/L ALT 31 (7-52) U/L Alkaline Phosphatase 77 (34-104) U/L Total Protein 6.1 (6.0-8.3) gm/dl Albumin 2.6 L (3.4-5.0) gm/dl Intake and Output 05/06/24 05/07/24 05/07/24 22:59 06:59 14:59 Intake Total 200 / 1300 400 / 1300 200 / 200 Output Total 1105 / 1260 155 / 1260 Balance -905 / 40 245 / 40 200 / 200 Intake: IV 200 / 1250 350 / 1250 200 / 200 Doxycycline Hyclate 100 mg In 100 / 200 100 / 100 Dextrose 5% Mini-B 100 ml @ 50 mls/hr IV Q12H FOR[facility]LY [facility], [facility]1983 Rx#:[id number] Piperacillin/Tazobactam 4.5 gm 100 / 300 100 / 300 100 / 100 In 100 ml @ 25 mls/hr IV Q8H [facility], [facility]1983 Rx#:[id number] Sodium Chloride 0.9% 250 ml @ 250 / 250 999 mls/hr IV .Q16M ONE Rx#: [id number] Oral 50 / 50 Output: Urine Amount (Catheter) 1105 / 1260 155 / 1260 Prado/Indwelling 1105 / 1260 155 / 1260 Other: # Unmeasured Voids 1 Weight 70.7 kg Weight Measurement Method Standing Scale Diagnostic Findings Telemetry reviewed: [place] converted to NSR from atrial fibrillation around 6:04 AM this morning. Currently NSR in the 60-70's. She had several short bursts of non sustained atrial tach this morning after converting to NSR. Medications Administered Current Inpatient Medications Acetaminophen (Acetaminophen 325 Mg Tab) 650 mg PO Q4H PRN PRN Reason: Pain or Fever Stop: 06/02/24 03:54 Apixaban (Apixaban 5 Mg Tablet) 5 mg PO BID AMILCAR Stop: 06/04/24 20:59 Last Admin: 05/07/24 08:03 Dose: 5 mg Doxycycline Hyclate (Doxycycline Hyclate 100 Mg Cap) 100 mg PO BID [facility] Stop: 05/08/24 20:59 Last Admin: 05/07/24 09:59 Dose: Not Given Guaifenesin (Guaifenesin 600 Mg Tabcr) 600 mg PO Q12 AMILCAR Stop: 06/04/24 20:59 Last Admin: 05/07/24 08:03 Dose: 600 mg Piperacillin Sod/Tazobactam Sod (Zosyn) 4.5 gm in 100 mls @ 25 mls/hr IV Q8H [facility], [facility]; Protocol Stop: 05/08/24 13:59 Last Infusion: 05/07/24 09:59 Dose: Infused Levothyroxine Sodium (Levothyroxine Sodium 100 Mcg Tablet) 100 mcg PO DAILYBB [facility] Stop: 06/02/24 06:29 Last Admin: 05/07/24 05:50 Dose: 100 mcg Loratadine (Loratadine 10 Mg Tab) 10 mg PO QAM PRN PRN Reason: allergy season Stop: 06/02/24 02:01 Metoprolol Succinate (Metoprolol Succ 50mg Ext Rel Tab) 100 mg PO BID [facility] Stop: 06/05/24 20:59 Last Admin: 05/07/24 08:03 Dose: 100 mg Nystatin (Nystatin Susp 500,000 U/5 Ml Udc) 5 ml PO QID [facility] Stop: 05/13/24 12:59 Last Admin: 05/07/24 08:07 Dose: 5 ml Pantoprazole Sodium (Pantoprazole 40 Mg Tab) 40 mg PO BID [facility] Stop: 06/03/24 20:59 (2) Pneumonia Laterality: unspecified laterality Lung location: unspecified part of lung Pneumonia type: due to unspecified organism Qualified Code(s): J18.9 - Pneumonia, unspecified organism
--- NOTE | 2024-05-07 14:34 | Hospitalist Progress Note ---
Date of Service May 07, 2024 Assessment & Plan (1) Severe sepsis: Plan: Ms. 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 #Leukocytosis #abnormal chest ct Repeat UA iso carney, c diff screen if diarrhea given abx Chest CT: 1. Cardiomegaly with interstitial pulmonary edema and moderate pleural effusion s. 2. Patchy multifocal bilateral airspace opacities suggestive of superimposed multifocal pneumonia. Continued follow-up is needed. 3. Mild mediastinal lymphadenopathy, likely reactive. 4. Fluid-filled esophagus with tracheobronchial secretions. Correlate clinically to exclude aspiration. No localizing symptoms s/p IV lasix 20mg x 2 c diff negative 05/04 anemia labs stable noncontributory to WBC smear suggestive 2/2 sepsis, perhaps slow recovery anticipated #Hematuria present x 2 days, seemingly more dark and ary in color UA not consistent with infection prior to apixaban initiation HGB stable question if 2/2 rhabdo if progressive will consult urology -Evaluated, will plan for void trial tomorrow and OP follow up for urology #Generalized weakness #Severe sepsis, improved #Community-acquired pneumonia versus aspiration pneumonia Blood cultures: NGTD Lactic acid improved from 6.0, now 1.9 Broaden antibiotic coverage to Zosyn plus doxycycline Speech therapy : moderate dysphagia PT/OT:SNF #New onset A-fib secondary to Above #History cardioembolic CVA, INR supratherapeutic without overt signs of bleed. echo with preserved ef Started metoprolol 25 mg p.o. twice daily Cardiology service consult - HR controlled with metoprolol XL 100mg BID converted to NSR overnight of 05/06 #mild troponin elevation- stable, no cardiac symptoms likely demand ischemia from A fib, hypoxia #Acute blood loss Anemia *stable #Suspected Upper GI Bleed in the setting of supratherapetuic INR (+) melena (+) FOBT, on repeat negative Hg decreased from 12 to 9--> remaining stable ~[address] abd: no bleed Protonix IV BID GI consulted: declined further intervention at this time Continue to trend CBC, starting AC this evening #Status post fall #Mild rhabdomyolysis Initial CPK 637, downtrending pelvic x-ray: negative for fx patient's son reporting weakness, loss of coordination for the past few days: encephalomalacia, old infarction #Hypotension secondary to IV Cardizem infusion BP on the lower side CTM #Bronchial asthma no wheezing symptoms #Hypothyroidism euthyroid PT OT SNF DVT prophylaxis. Smiley Full code Disposition lives at home PT/OT eval: pending dispo to SNF Admission and Anticipated Discharge Date Admission Date: May 03, 2024 Subjective Reports being "awakened" early in the morning and up every since--despite frustration from the interruption, she reports that she feels better with improved strength and cough She dnies chest pain, sob, subjective fevers, or other acute concerns Physical Exam Constitutional: WD/WN, vitals as above Respiratory: normal respiratory effort, lungs clear to auscultation Cardiovascular: RRR, no murmur, no edema Results & Data Results & Data Vital Signs (Past 12 Hours) Vital Signs Temp Pulse Pulse Resp BP BP Pulse Ox 05/07/24 13:52 68 05/07/24 11:44 36.5 C 69 20 99/62 L 98 05/07/24 07:52 37.2 C 71 20 103/69 95 05/07/24 07:15 05/07/24 07:06 69 05/07/24 04:11 37.0 C 98 H 16 96/57 L 94 O2 Del Method 05/07/24 13:52 05/07/24 11:44 Room Air 05/07/24 07:52 Room Air 05/07/24 07:15 Room Air 05/07/24 07:06 05/07/24 04:11 Room Air Laboratory Results Short CBC 05/07/24 Range/Units 06:26 WBC 18.85 H (4.8-10.8) K/ul Hgb 9.6 L (12.0-16.0) g/dl Hct 28.6 L (37.0-47.0) % Plt Count 384 (130-400) K/uL BMP 05/07/24 06:26 Sodium 136 Potassium 4.2 Chloride 109 H Carbon Dioxide 19 L BUN 25 H Creatinine 1.08 Glucose 134 H Calcium 8.7 Liver Function 05/07/24 Range/Units 06:26 Total Bilirubin 1.0 (0.2-1.0) mg/dl Direct Bilirubin 0.5 H (0-0.2) mg/dl AST 40 H (13-39) U/L ALT 31 (7-52) U/L Alkaline Phosphatase 77 (34-104) U/L Albumin 2.6 L (3.4-5.0) gm/dl Urine 05/06/24 Range/Units 15:00 Urine Color Brown Urine Appearance Cloudy A (Clear) Urine pH 5.5 (4.5-7.5) Ur Specific [place] >= 1.030 (1.000-1.030) Urine Protein 3+ H (Negative) Urine Glucose (UA) Negative (Negative) Medications Administered Home Medications Medication Instructions Recorded Confirmed Last Taken levothyroxine 100 mcg tablet 100 mcg PO DAILYBB 05/02/24 05/02/24 Unknown loratadine 10 mg tablet 10 mg PO QAM PRN allergy season 05/02/24 05/02/24 Unknown warfarin 4 mg tablet 4 - 8 mg PO DAILY 05/02/24 05/02/24 Unknown Active Medications Generic Name Dose Route Start Last Admin Trade Name Freq PRN Reason Stop Dose Admin Apixaban 5 mg 05/05/24 21:00 05/07/24 08:03 Apixaban 5 Mg Tablet PO 06/04/24 20:59 5 mg BID AMILCAR Administration Doxycycline Hyclate 100 mg 05/07/24 10:00 05/07/24 09:59 Doxycycline Hyclate 100 Mg Cap PO 05/08/24 20:59 Not Given BID AMILCAR Guaifenesin 600 mg 05/05/24 21:00 05/07/24 08:03 Guaifenesin 600 Mg Tabcr PO 06/04/24 20:59 600 mg Q12 AMILCAR Administration Piperacillin Sod/Tazobactam Sod 4.5 gm in 100 mls @ 25 mls/hr 05/03/24 14:00 05/07/24 09:59 Zosyn IV 05/08/24 13:59 Infused Q8H AMILCAR Infusion Protocol Levothyroxine Sodium 100 mcg 05/03/24 06:30 05/07/24 05:50 Levothyroxine Sodium 100 Mcg Tablet PO 06/02/24 06:29 100 mcg DAILYBB AMILCAR Administration Metoprolol Succinate 100 mg 05/06/24 21:00 05/07/24 08:03 Metoprolol Succ 50mg Ext Rel Tab PO 06/05/24 20:59 100 mg BID AMILCAR Administration Nystatin 5 ml 05/03/24 13:00 05/07/24 13:16 Nystatin Susp 500,000 U/5 Ml Udc PO 05/13/24 12:59 5 ml QID AMILCAR Administration
[2024-05-07] MEDS: PANTOprazole 40 MG TAB PO SCH (20:16)
[2024-05-08 06:34] LABS: Basophils # (auto) 0.03 K/uL (0.00-0.20); Basophils % (auto) 0.2 %; Eosinophils # (auto) 0.22 K/uL (0.00-0.50); Eosinophils % (auto) 1.5 %; Hematocrit (blood only) 26.4 % (37.0-47.0); Hemoglobin 8.6 g/dl (12.0-16.0); Immature Granulocytes # (auto) 0.34 K/uL (0.01-0.20); Immature Granulocytes % (auto) 2.3 %; Lymphocytes # (auto) 1.48 K/uL (1.20-3.40); Lymphocytes % (auto) 10.1 %; Mean Corpuscular Hemoglobin 28.5 pg (25.0-34.0); Mean Corpuscular Hgb Conc 32.6 g/dL (32.0-36.0); Mean Corpuscular Volume 87.4 fL (80.0-100.0); Mean Platelet Volume 10.4 fL (9.4-12.4); Monocytes # (auto) 0.72 K/uL (0.11-0.59); Monocytes % (auto) 4.9 %; Neutrophils # (auto) 11.88 K/uL (1.40-6.50); Platelet Count 358 K/uL (130-400); RDW Coefficient of Variation 14.4 % (11.5-14.5); RDW Standard Deviation 45.5 fL (36.4-46.3); Red Blood Count 3.02 M/uL (4.20-5.40); White Blood Count 14.67 K/ul (4.8-10.8)
[2024-05-08 06:43] LABS: BUN Creatinine Ratio 22.6 (10-20); Calcium 8.5 mg/dl (8.6-10.3); Creatinine Clr Calc Pharmacy 36.9 ml/min; Potassium 4.4 mmol/L (3.5-5.1)
--- NOTE | 2024-05-08 09:12 | Cardiology Progress Note ---
<Statement entered by Dennise Winslow DO - 05/08/24 14:12> I have reviewed the advanced practitioner's documentation and agree with the plan of care. I accept the responsibility for the associated risk. Pt seen in cardiology follow up due to newly found pAF in the setting of PNA; he converted to SR/SB Ventricular rates have been on the slower side in Sinus will decrease metoprolol he is slightly overloaded on exam will give a dose of IV lasix today continue eliquis monitor on telemety Date of Service May 08, 2024 Assessment & Plan (1) Severe sepsis: (2) Pneumonia: (3) Atrial fibrillation with RVR: Plan 78-year-old female admitted on 05/03/2024 with severe sepsis secondary to pneumonia. Cardiology consultation requested secondary to new onset atrial fibrillation with a rapid ventricular response. 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 INR greater than 10 on presentation, 1.3 this AM after receiving two doses of vitamin K New onset atrial fibrillation with rapid ventricular response. - Resting echocardiography this admission with preserved LV systolic function, normal wall motion, no significant valvular disease. Moderately dilated left atrium observed. - Metoprolol succinate initiated and increased throughout hospitalization, up to 100 mg twice per day as of on May 06, 2024 - Rhythm spontaneously converted back to sinus rhythm in the morning of May 07, 2024. - Patient maintaining sinus rhythm, heart rates in the 60s. - Metoprolol held this AM for parameters - Decrease metoprolol succinate dosing to 75 mg BID - Maintain telemetry. [id number] Score 5 points - INR supratherapeutic on presentation. - Anticoagulation initially held, receiving 2 doses of vitamin K. - Heparin not utilized after reversal with vitamin K due to drop in hemoglobin, hematuria, positive FOBT. - Eliquis anticoagulation initiated in the evening of May 05, 2024 - Continue Eliquis anticoagulation. Volume overaload - Cumulative I's and O's +7 L - Imaging and examination with left greater than right pleural effusions, volume overload - IV furosemide with potassium supplementation later today. Severe sepsis/pneumonia/thrush. As per Hospitalist Admission and Anticipated Discharge Date Admission Date: May 03, 2024 Subjective Patient seen and examined. Chart, medications, and telemetry reviewed. Daughter, visiting from [place], present at bedside. Ongoing cough with difficulty expectorating. + Shortness of breath. Slept in a recliner last night due to difficulty breathing. Right greater than left lower extremity peripheral edema. No chest pain. No palpitations. No dizziness or near syncope. No fevers or chills. Prado catheter remains in place. Cumulative I's/O's positive for 7406 mL overall Telemetry: Sinus rhythm in the 60s. There was one short run of PAT versus atypical flutter on May 07 at 18:18. Review of Systems Review of Systems: Complete Review of Systems is as stated above, negative, or noncontributory Physical Exam Physical Exam: General: Alert and oriented x 3. No acute distress. HENT: Atraumatic. Eyes: PER. Conjunctiva pink, sclera clear. Neck: Mild JVD. Heart: Regular at 66 bpm. No murmur. Lungs: Decreased breath sounds, left greater than right base. Right basilar Rales. No wheeze. Abdomen: +BS. Soft. Nontender. No masses or organomegaly. Prado catheter in place Extremities: Trace to 1+ right greater than left lower extremity peripheral edema. No clubbing. No cyanosis. Results & Data Vital Signs (Past 12 Hours) Vital Signs Temp Pulse Pulse Resp BP Pulse Ox O2 Del Method 05/08/24 07:48 36.7 C 60 20 100/66 95 Room Air 05/08/24 07:15 59 L 05/08/24 04:12 36.6 C 53 L 16 95/58 L 91 Room Air 05/07/24 22:57 65 05/07/24 22:49 36.8 C 60 16 91/58 L 94 Room Air Laboratory Results CBC 05/08/24 Range/Units 05:47 WBC 14.67 H (4.8-10.8) K/ul RBC 3.02 L (4.20-5.40) M/uL Hgb 8.6 L (12.0-16.0) g/dl Hct 26.4 L (37.0-47.0) % Plt Count 358 (130-400) K/uL Neut # (Auto) 11.88 H (1.40-6.50) K/uL Lymph # (Auto) 1.48 (1.20-3.40) K/uL [place] # (Auto) 0.72 H (0.11-0.59) K/uL Eos # (Auto) 0.22 (0.00-0.50) K/uL Baso # (Auto) 0.03 (0.00-0.20) K/uL Comprehensive Metabolic Panel 05/08/24 Range/Units 05:47 Sodium 136 (136-145) mmol/L Potassium 4.4 (3.5-5.1) mmol/L Chloride 106 (98-107) mmol/L Carbon Dioxide 24 (21-32) mmol/L BUN 28 H (6-23) mg/dl Creatinine 1.24 H (0.6-1.2) mg/dl Glucose 88 (70-99(Fasting)) mg/dl Calcium 8.5 L (8.6-10.3) mg/dl Intake and Output 05/07/24 05/08/24 05/08/24 22:59 06:59 14:59 Intake Total 200 / 1100 100 / 1100 100 / 100 Output Total 300 / 1150 150 / 1150 Balance -100 / -50 -50 / -50 100 / 100 Intake: IV 100 / 400 100 / 400 100 / 100 Piperacillin/Tazobactam 4.5 gm 100 / 300 100 / 300 100 / 100 In 100 ml @ 25 mls/hr IV Q8H REPLACED BY [facility] Rx#:[id number] Oral 100 / 700 Output: Urine Amount (Catheter) 300 / 450 150 / 450 [place]/Indwelling 300 / 450 150 / 450 Other: Other Intake Source Sips (2) Pneumonia Laterality: unspecified laterality Lung location: unspecified part of lung Pneumonia type: due to unspecified organism Qualified Code(s): J18.9 - Pneumonia, unspecified organism
[2024-05-08] MEDS: LOPERAMIDE HCL 2 MG CAP PO PRN (12:52)
[2024-05-08] MEDS: FUROSEMIDE INJ 20 MG/2 ML VIAL IV ONE (14:25)
[2024-05-08] MEDS: POTASSIUM CHLORIDE 10 MEQ TABCR PO ONE (14:25)
--- NOTE | 2024-05-08 14:38 | Hospitalist Progress Note ---
Date of Service May 08, 2024 Assessment & Plan (1) Severe sepsis: Plan: Ms. 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 Patient's course complicated by hematuria, a fib RVR, and weakness; however, clinically patient is improving over all. Plan for dispo to rehab in coming week #Leukocytosis *downtrending #abnormal chest ct Repeat UA iso carney, c diff screen if diarrhea given abx Chest CT: 1. Cardiomegaly with interstitial pulmonary edema and moderate pleural effusions. 2. Patchy multifocal bilateral airspace opacities suggestive of superimposed multifocal pneumonia. Continued follow-up is needed. 3. Mild mediastinal lymphadenopathy, likely reactive. 4. Fluid-filled esophagus with tracheobronchial secretions. Correlate clinically to exclude aspiration. No localizing symptoms s/p IV lasix 20mg x 2 c diff negative 05/04 anemia labs stable noncontributory to WBC smear suggestive 2/2 sepsis, perhaps slow recovery anticipated #Hematuria present x 2 days, seemingly more dark and ary in color UA not consistent with infection prior to apixaban initiation HGB stable question if 2/2 rhabdo if progressive will consult urology Carney to be removed tomorrow #Generalized weakness #Severe sepsis, improved #Community-acquired pneumonia versus aspiration pneumonia Blood cultures: NGTD Lactic acid improved from 6.0, now 1.9 Broaden antibiotic coverage to Zosyn plus doxycycline Speech therapy : moderate dysphagia PT/OT:SNF #New onset A-fib secondary to Above #History cardioembolic CVA, INR supratherapeutic without overt signs of bleed. echo with preserved ef Started metoprolol 25 mg p.o. twice daily Cardiology service consult - HR controlled, reducing metoprolol to 75mg bid converted to NSR overnight of 05/06 s/p Lasix 20mg x 3 #mild troponin elevation- stable, no cardiac symptoms likely demand ischemia from A fib, hypoxia #Acute blood loss Anemia *stable #Suspected Upper GI Bleed in the setting of supratherapetuic INR (+) melena, (+) FOBT, on repeat negative Hg decreased from 12 to 9--> remaining stable ~[address] abd: no bleed Protonix IV BID GI consulted: declined further intervention at this time stable on eliquis #Status post fall #Mild rhabdomyolysis Initial CPK 637, downtrending pelvic x-ray: negative for fx patient's son reporting weakness, loss of coordination for the past few days: encephalomalacia, old infarction #Hypotension secondary to IV Cardizem infusion BP on the lower side CTM #Bronchial asthma no wheezing symptoms #Hypothyroidism euthyroid DVT prophylaxis. Eliquis Full code Disposition lives at home PT/OT eval: pending dispo to SNF Admission and Anticipated Discharge Date Admission Date: May 03, 2024 Subjective Reports diarrhea/loose stool, but no abdominal pain or discomfort noted Denies nausea or vomiting. States her cough is still bothersome, but is improving in comparison to days prior Requests to keep carney in one more day iso diarrhea Physical Exam Constitutional: sitting in bedside chair Respiratory: rhonchi in lower bilateral lobes Cardiovascular: RRR minimal edema Results & Data Results & Data Vital Signs (Past 12 Hours) Vital Signs Temp Pulse Pulse Resp BP BP Pulse Ox 05/08/24 11:42 36.2 C L 65 16 106/61 96 05/08/24 07:48 36.7 C 60 20 100/66 95 05/08/24 07:45 05/08/24 07:15 59 L 05/08/24 04:12 36.6 C 53 L 16 95/58 L 91 O2 Del Method 05/08/24 11:42 Room Air 05/08/24 07:48 Room Air 05/08/24 07:45 Room Air 05/08/24 07:15 05/08/24 04:12 Room Air Laboratory Results Short CBC 05/08/24 Range/Units 05:47 WBC 14.67 H (4.8-10.8) K/ul Hgb 8.6 L (12.0-16.0) g/dl Hct 26.4 L (37.0-47.0) % Plt Count 358 (130-400) K/uL BMP 05/08/24 05:47 Sodium 136 Potassium 4.4 Chloride 106 Carbon Dioxide 24 BUN 28 H Creatinine 1.24 H Glucose 88 Calcium 8.5 L Medications Administered Home Medications Medication Instructions Recorded Confirmed Last Taken levothyroxine 100 mcg tablet 100 mcg PO DAILYBB 05/02/24 05/02/24 Unknown loratadine 10 mg tablet 10 mg PO QAM PRN allergy season 05/02/24 05/02/24 Unknown warfarin 4 mg tablet 4 - 8 mg PO DAILY 05/02/24 05/02/24 Unknown apixaban 5 mg tablet (Eliquis) 5 mg PO BID 30 days #60 tabs 05/07/24 Unknown Active Medications Generic Name Dose Route Start Last Admin Trade Name Freq PRN Reason Stop Dose Admin Apixaban 5 mg 05/05/24 21:00 05/08/24 08:04 Apixaban 5 Mg Tablet PO 06/04/24 20:59 5 mg BID AMILCAR Administration Doxycycline Hyclate 100 mg 05/07/24 10:00 05/08/24 08:05 Doxycycline Hyclate 100 Mg Cap PO 05/08/24 20:59 100 mg BID AMILCAR Administration Guaifenesin 600 mg 05/05/24 21:00 05/08/24 08:05 Guaifenesin 600 Mg Tabcr PO 06/04/24 20:59 600 mg Q12 AMILCAR Administration Levothyroxine Sodium 100 mcg 05/03/24 06:30 05/08/24 05:34 Levothyroxine Sodium 100 Mcg Tablet PO 06/02/24 06:29 100 mcg DAILYBB AMILCAR Administration Loperamide HCl 2 mg 05/08/24 10:34 05/08/24 12:52 Loperamide Hcl 2 Mg Cap PO 06/07/24 10:33 2 mg Q4H PRN Administration Nausea And Vomiting Nystatin 5 ml 05/03/24 13:00 05/08/24 12:52 Nystatin Susp 500,000 U/5 Ml Udc PO 05/13/24 12:59 5 ml QID AMILCAR Administration Pantoprazole Sodium 40 mg 05/07/24 21:00 05/08/24 08:06 Pantoprazole 40 Mg Tab PO 06/03/24 20:59 40 mg BID AMILCAR Administration
[2024-05-08] MEDS: METOPROLOL SUCC 50MG EXT REL TAB PO STA (15:57)
[2024-05-08] MEDS: ADVANCED PROBIOTIC 625 MG CAPSULE PO SCH (16:00)
[2024-05-08] MEDS: METOPROLOL SUCC 25MG EXT REL TAB PO SCH (20:06)
[2024-05-09 07:50] LABS: Hematocrit (blood only) 27.7 % (37.0-47.0); Hemoglobin 8.9 g/dl (12.0-16.0); Mean Corpuscular Hemoglobin 28.1 pg (25.0-34.0); Mean Corpuscular Hgb Conc 32.1 g/dL (32.0-36.0); Mean Corpuscular Volume 87.4 fL (80.0-100.0); Mean Platelet Volume 10.3 fL (9.4-12.4); Platelet Count 386 K/uL (130-400); RDW Coefficient of Variation 14.6 % (11.5-14.5); Red Blood Count 3.17 M/uL (4.20-5.40); White Blood Count 13.91 K/ul (4.8-10.8)
[2024-05-09 08:02] LABS: BUN Creatinine Ratio 25.2 (10-20); Calcium 8.5 mg/dl (8.6-10.3); Creatinine Clr Calc Pharmacy 39.8 ml/min; Magnesium 1.6 mg/dl (1.7-2.4); Potassium 3.9 mmol/L (3.5-5.1)
--- NOTE | 2024-05-09 10:40 | Cardiology Progress Note ---
<Statement entered by Dennise Winslow DO - 05/09/24 15:41> I have reviewed the advanced practitioner's documentation and agree with the plan of care. I accept the responsibility for the associated risk. Pt seen in cardiology follow up due to newly found pAF in the setting of PNA; she converted to SR/SB ventricular rates stable on the lower dose of metoprolol continue eliquis monitor on telemetry give another dose of IV lasix today and lasix 20mg daily upon discharge No further in patient cardiac testing or recommendations at this juncture please reconsult as needed she will need cardiology f/u upon discharge Date of Service May 09, 2024 Assessment & Plan (1) Severe sepsis: (2) Pneumonia: (3) Atrial fibrillation with RVR: Plan 78-year-old female admitted on 05/03/2024 with severe sepsis secondary to pneumonia. Cardiology consultation requested secondary to new onset atrial fibrillation with a rapid ventricular response. 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 INR greater than 10 on presentation, 1.3 this AM after receiving two doses of vitamin K New onset atrial fibrillation with rapid ventricular response. - Resting echocardiography this admission with preserved LV systolic function, normal wall motion, no significant valvular disease. Moderately dilated left atrium observed. - Metoprolol succinate initiated and increased throughout hospitalization, up to 100 mg twice per day as of on May 06, 2024 - Rhythm spontaneously converted back to sinus rhythm in the morning of May 07, 2024. - Patient predominately maintaining sinus rhythm, heart rates in the 60s. - Metoprolol succinate dosing decreased to 75 mg BID in AM of 05/09/2023 - Continue metoprolol succinate at 75 mg BID [id number] Score 5 points - INR supratherapeutic on presentation. - Anticoagulation initially held, receiving 2 doses of vitamin K. - Heparin not utilized after reversal with vitamin K due to drop in hemoglobin, hematuria, positive FOBT. - Eliquis anticoagulation initiated in the evening of May 05, 2024 - Continue Eliquis anticoagulation. Volume overload - Another dose of IV furosemide with potassium and magnesium supplementation today. Severe sepsis/pneumonia. As per Hospitalist Admission and Anticipated Discharge Date Admission Date: May 03, 2024 Subjective Patient seen and examined. Chart, medications, telemetry reviewed. Patient notes feeling better after receiving IV furosemide yesterday afternoon, with improvement in cough, dyspnea and, and lower extremity peripheral edema. I's/O's -1.3 L over the last 24 hours. Creatinine improved. Hemoglobin stable. White blood cell count improved. No chest pain. No palpitations. No dizziness or syncope. Telemetry: Sinus rhythm in the 60s. Less than 1 minute of PAT/atypical flutter on 05/08/2024 at 15:08. Rare PVC. Review of Systems Review of Systems: Complete Review of Systems is as stated above, negative, or noncontributory Physical Exam Physical Exam: General: No acute distress. HENT: Atraumatic. Eyes: PER. Conjunctiva pink, sclera clear. Neck: Mild JVD. Heart: Regular at 66 bpm. No murmur. Lungs: Decreased breath sounds, left greater than right base. Right basilar Rales. No wheeze. Abdomen: +BS. Soft. Nontender. No masses or organomegaly. Extremities: Trace to 1+ right greater than left lower extremity peripheral edema. No clubbing. No cyanosis. Results & Data Vital Signs (Past 12 Hours) Vital Signs Temp Pulse Pulse Pulse Resp BP Pulse Ox 05/09/24 07:59 36.5 C 62 20 104/67 92 05/09/24 06:57 62 05/09/24 04:00 05/08/24 23:00 36.7 C 64 18 105/66 91 Pulse Ox O2 Del Method O2 Del Method 05/09/24 07:59 Room Air 05/09/24 06:57 05/09/24 04:00 91 Room Air 05/08/24 23:00 Room Air Laboratory Results CBC 05/09/24 Range/Units 07:13 WBC 13.91 H (4.8-10.8) K/ul RBC 3.17 L (4.20-5.40) M/uL Hgb 8.9 L (12.0-16.0) g/dl Hct 27.7 L (37.0-47.0) % Plt Count 386 (130-400) K/uL Comprehensive Metabolic Panel 05/09/24 Range/Units 07:13 Sodium 137 (136-145) mmol/L Potassium 3.9 (3.5-5.1) mmol/L Chloride 106 (98-107) mmol/L Carbon Dioxide 27 (21-32) mmol/L BUN 29 H (6-23) mg/dl Creatinine 1.15 (0.6-1.2) mg/dl Glucose 101 H (70-99(Fasting)) mg/dl Calcium 8.5 L (8.6-10.3) mg/dl Intake and Output 05/08/24 05/09/24 05/09/24 22:59 06:59 14:59 Intake Total 360 / 460 Output Total 1575 / 1775 200 / 1775 Balance -1215 / -1315 -200 / -1315 Intake: Oral 360 / 360 Output: Urine Amount (Catheter) 1575 / 1775 200 / 1775 [place]/Indwelling 1575 / 1775 200 / 1775 Other: Weight 69.9 kg Weight Measurement Method Standing Scale (2) Pneumonia Laterality: unspecified laterality Lung location: unspecified part of lung Pneumonia type: due to unspecified organism Qualified Code(s): J18.9 - Pneumonia, unspecified organism
[2024-05-09] MEDS: POTASSIUM CHLORIDE CRTAB 20 MEQ TABCR PO ONE (10:59)
[2024-05-09] MEDS: MAGNESIUM SULFATE / D5W 1 GM/100 ML BAG IV SCH (11:00)
--- NOTE | 2024-05-09 12:12 | Hospitalist Progress Note ---
Date of Service May 09, 2024 Assessment & Plan (1) Severe sepsis: Plan: Ms. 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 Patient's course complicated by hematuria, a fib RVR, and weakness; however, clinically patient is improving over all. Carney to be removed today Plan for dispo to rehab in coming week #Leukocytosis *downtrending #abnormal chest ct Repeat UA iso carney, c diff screen if diarrhea given abx Chest CT: 1. Cardiomegaly with interstitial pulmonary edema and moderate pleural effusions . 2. Patchy multifocal bilateral airspace opacities suggestive of superimposed multifocal pneumonia. Continued follow-up is needed. 3. Mild mediastinal lymphadenopathy, likely reactive. 4. Fluid-filled esophagus with tracheobronchial secretions. Correlate clinically to exclude aspiration. No localizing symptoms s/p IV lasix 20mg x 2 c diff negative 05/04 anemia labs stable noncontributory to WBC completed antibiotics #Hematuria *resolving present x 2 days, seemingly more dark and ary in color UA not consistent with infection prior to apixaban initiation HGB stable question if 2/2 rhabdo Discontinue carney #Generalized weakness #Severe sepsis, improved #Community-acquired pneumonia versus aspiration pneumonia Blood cultures: NGTD Lactic acid improved from 6.0 completed 7 days abx Speech therapy : moderate dysphagia PT/OT:SNF #New onset A-fib secondary to Above #History cardioembolic CVA, INR supratherapeutic without overt signs of bleed. echo with preserved ef Started metoprolol 25 mg p.o. twice daily Cardiology service consult - HR controlled, reducing metoprolol to 75mg bid converted to NSR overnight of 05/06 s/p Lasix 20mg x 4 #mild troponin elevation- stable, no cardiac symptoms likely demand ischemia from A fib, hypoxia #Acute blood loss Anemia *stable #Suspected Upper GI Bleed in the setting of supratherapetuic INR (+) melena, (+) FOBT, on repeat negative Hg decreased from 12 to 9--> remaining stable ~[address] abd: no bleed Protonix IV BID GI consulted: declined further intervention at this time stable on eliquis #Status post fall #Mild rhabdomyolysis Initial CPK 637, downtrending pelvic x-ray: negative for fx patient's son reporting weakness, loss of coordination for the past few days: encephalomalacia, old infarction #Hypotension BP on the lower side CTM #Bronchial asthma no wheezing symptoms #Hypothyroidism euthyroid DVT prophylaxis. Eliquis Full code Disposition lives at home PT/OT eval: pending dispo to SNF Admission and Anticipated Discharge Date Admission Date: May 03, 2024 Subjective Patient reports feeling overall well today and denies any new symptoms at this time. Reports improvement in stool frequency agree to carney removal Physical Exam Constitutional: WD/WN, vitals as above Respiratory: normal respiratory effort, lungs clear to auscultation Cardiovascular: RRR, no murmur, no edema Gastrointestinal (Abdomen): normal bowel sounds, soft, nontender, no hepatospl enomegaly Results & Data Results & Data Vital Signs (Past 12 Hours) Vital Signs Temp Pulse Pulse Pulse Resp BP BP 05/09/24 11:32 36.6 C 65 20 115/70 05/09/24 07:59 36.5 C 62 20 104/67 05/09/24 06:57 62 05/09/24 04:00 Pulse Ox Pulse Ox O2 Del Method O2 Del Method 05/09/24 11:32 96 Room Air 05/09/24 07:59 92 Room Air 05/09/24 06:57 05/09/24 04:00 91 Room Air Laboratory Results Short CBC 05/09/24 Range/Units 07:13 WBC 13.91 H (4.8-10.8) K/ul Hgb 8.9 L (12.0-16.0) g/dl Hct 27.7 L (37.0-47.0) % Plt Count 386 (130-400) K/uL BMP 05/09/24 07:13 Sodium 137 Potassium 3.9 Chloride 106 Carbon Dioxide 27 BUN 29 H Creatinine 1.15 Glucose 101 H Calcium 8.5 L Medications Administered Home Medications Medication Instructions Recorded Confirmed Last Taken levothyroxine 100 mcg tablet 100 mcg PO DAILYBB 05/02/24 05/02/24 Unknown loratadine 10 mg tablet 10 mg PO QAM PRN allergy season 05/02/24 05/02/24 Unknown warfarin 4 mg tablet 4 - 8 mg PO DAILY 05/02/24 05/02/24 Unknown apixaban 5 mg tablet (Eliquis) 5 mg PO BID 30 days #60 tabs 05/07/24 Unknown Active Medications Generic Name Dose Route Start Last Admin Trade Name Tasha PRN Reason Stop Dose Admin Apixaban 5 mg 05/05/24 21:00 05/09/24 08:08 Apixaban 5 Mg Tablet PO 06/04/24 20:59 5 mg BID AMILCAR Administration Guaifenesin 600 mg 05/05/24 21:00 05/09/24 08:08 Guaifenesin 600 Mg Tabcr PO 06/04/24 20:59 600 mg Q12 AMILCAR Administration Magnesium Sulfate/Dextrose 1 gm in 100 mls @ 50 mls/hr 05/09/24 10:45 05/09/24 11:00 Magnesium Sulfate / D5w IV 05/09/24 14:44 50 mls/hr Q2H AMILCAR Administration Lactobacillus Acidophilus 1,250 mg 05/08/24 15:30 05/09/24 08:07 Advanced Probiotic 625 Mg Capsule PO 06/07/24 15:29 Not Given DAILY AMILCAR Levothyroxine Sodium 100 mcg 05/03/24 06:30 05/09/24 05:38 Levothyroxine Sodium 100 Mcg Tablet PO 06/02/24 06:29 100 mcg DAILYBB AMILCAR Administration Loperamide HCl 2 mg 05/08/24 10:34 05/09/24 10:59 Loperamide Hcl 2 Mg Cap PO 06/07/24 10:33 2 mg Q4H PRN Administration Nausea And Vomiting Metoprolol Succinate 75 mg 05/08/24 21:00 05/09/24 08:07 Metoprolol Succ 25mg Ext Rel Tab PO 06/07/24 20:59 75 mg BID AMILCAR Administration Nystatin 5 ml 05/03/24 13:00 05/09/24 08:04 Nystatin Susp 500,000 U/5 Ml Udc PO 05/13/24 12:59 5 ml QID AMILCAR Administration Pantoprazole Sodium 40 mg 05/07/24 21:00 05/09/24 08:05 Pantoprazole 40 Mg Tab PO 06/03/24 20:59 40 mg BID AMILCAR Administration
[2024-05-09] MEDS: FUROSEMIDE INJ 20 MG/2 ML VIAL IV ONE (14:18)
[2024-05-10 06:45] LABS: Hematocrit (blood only) 26.8 % (37.0-47.0); Hemoglobin 8.9 g/dl (12.0-16.0); Mean Corpuscular Hemoglobin 28.9 pg (25.0-34.0); Mean Corpuscular Hgb Conc 33.2 g/dL (32.0-36.0); Mean Platelet Volume 9.6 fL (9.4-12.4); Platelet Count 387 K/uL (130-400); RDW Coefficient of Variation 14.7 % (11.5-14.5); RDW Standard Deviation 43.9 fL (36.4-46.3); Red Blood Count 3.08 M/uL (4.20-5.40)
[2024-05-10 07:07] LABS: BUN Creatinine Ratio 23.9 (10-20); Calcium 8.6 mg/dl (8.6-10.3); Potassium 4.3 mmol/L (3.5-5.1)
[2024-05-10 08:00] VITALS: RESP 18; TEMP 97.9; O2SAT 93
--- NOTE | 2024-05-10 13:00 | Discharge Summary ---
Discharge Summary Date of Service May 10, 2024 Principal Dx & Hospital Course #1 = Principal Diagnosis (1) Severe sepsis: Ms. 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 Patient's course complicated by hematuria, a fib RVR, and weakness; however, clinically patient is improving over all. Leukocytosis trended down. Hgb remained stable even after initiation of eliquis. Hematuria likely iso traumatic carney. Patient eating well and voiding without issue on day of discharge to SNF #Leukocytosis *downtrending #abnormal chest ct Repeat UA iso carney, c diff screen if diarrhea given abx Chest CT: 1. Cardiomegaly with interstitial pulmonary edema and moderate pleural effusions. 2. Patchy multifocal bilateral airspace opacities suggestive of superimposed multifocal pneumonia. Continued follow-up is needed. 3. Mild mediastinal lymphadenopathy, likely reactive. 4. Fluid-filled esophagus with tracheobronchial secretions. Correlate clinically to exclude aspiration. No localizing symptoms c diff negative 05/04 anemia labs stable noncontributory to WBC completed antibiotics #Hematuria *resolved present x 2 days, seemingly more dark and ary in color UA not consistent with infection prior to apixaban initiation HGB stable question if 2/2 rhabdo Discontinued carney, voiding without issue #Generalized weakness #Severe sepsis, improved #Community-acquired pneumonia versus aspiration pneumonia Blood cultures: NGTD Lactic acid improved from 6.0 completed 7 days abx Speech therapy : moderate dysphagia PT/OT:SNF #New onset A-fib secondary to Above #History cardioembolic CVA, INR supratherapeutic without overt signs of bleed. echo with preserved ef Started metoprolol 25 mg p.o. twice daily Cardiology service consult - HR controlled, reducing metoprolol to 75mg bid converted to NSR overnight of 05/06 s/p Lasix 20mg x 4 #mild troponin elevation- stable, no cardiac symptoms likely demand ischemia from A fib, hypoxia #Acute blood loss Anemia *stable #Suspected Upper GI Bleed in the setting of supratherapetuic INR (+) melena, (+) FOBT, on repeat negative Hg decreased from 12 to 9--> remaining stable ~[address] abd: no bleed Protonix IV BID GI consulted: declined further intervention at this time stable on eliquis #Status post fall #Mild rhabdomyolysis Initial CPK 637, downtrending pelvic x-ray: negative for fx patient's son reporting weakness, loss of coordination for the past few days: encephalomalacia, old infarction #Hypotension BP on the lower side CTM #Bronchial asthma no wheezing symptoms #Hypothyroidism euthyroid Notes For Next Care Provider Medication Changes From Visit Metoprolol 75 mg BID Eliquis 5mg BID Admission HPI Per Admitting Provider History obtained from patient, family, and records. 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 ANGIE showed small flap of tissue adjacent interatrial septum which may be potential source of thrombus formation and cardioembolic stroke. Patient discharged on Coumadin. Patient not well the last few weeks. Flulike symptoms with transient watery diarrhea symptoms. Cough symptoms noted on water/food intake. Poor appetite. Denies headache symptoms. Patient increasingly weak yesterday. She slid from her bed and had trouble getting up. Patient may have been on the floor for more than 12 hours as per her account. Denies head trauma/syncope/LOC. Denies chest pain. Patient complaining of some shortness of breath. Patient brother found patient on the floor but he was too weak to help her up. Patient son summoned to patient's home. Patient noted to be in rapid A-fib upon arrival at the ER. IV Cardizem infusion and ceftriaxone administered at the ER. SBP 80s later noted at the ER. 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 Admission Exam Per Admitting Provider GENERAL: Comfortable, mild dysarthria (chronic as per family), no respiratory distress SKIN: Normal color, warm HEENT: [place] palpebral conjunctivae, no ptosis, dry buccal mucosa NECK : Supple, no tenderness CHEST : Decreased breath sounds, no tenderness HEART : Irregular, no obvious murmurs ABDOMEN: Some distention, nontender EXTREMITIES : No LE swelling/tenderness, palpable pulses, no other conspicuous deformities noted NEUROLOGIC : Coherent, no facial asymmetry, chronic dysarthria, gait and stance not assessed Discharge Exam Constitutional WD/WN, vitals as above Respiratory normal respiratory effort, lungs clear to auscultation Cardiovascular RRR, no murmur, no edema Gastrointestinal (Abdomen) normal bowel sounds, soft, nontender, no hepatosplenomegaly Updated Medication List Medication Instructions Recorded Confirmed Type levothyroxine 100 mcg tablet 100 mcg PO DAILYBB 05/02/24 05/02/24 History loratadine 10 mg tablet 10 mg PO QAM PRN allergy season 05/02/24 05/02/24 History apixaban 5 mg tablet (Eliquis) 5 mg PO BID 30 days #60 tabs 05/07/24 Rx L.acidop,casei,lactis,rham-B.lact,sergio 1 cap PO DAILY 30 days #30 caps 05/10/24 Rx 625 mg (10 billion cell) capsule (Advanced Probiotic) metoprolol succinate 25 mg 75 mg (3 x 25 mg) PO BID 30 days 05/10/24 Rx tablet,extended release 24 hr #180 tabs pantoprazole 40 mg tablet,delayed 40 mg PO BID 30 days #60 tabs 05/10/24 Rx release Hospital Stay Data Consultations 05/02/24 21:54 ED Decision to Admit Stat 05/03/24 03:55 Consult Cardiology Routine 05/04/24 17:00 Consult Gastroenterology Routine 05/07/24 08:34 Consult Urology Routine Diagnostic Imagining Performed 05/04/24 10:46 CT Abd and Pelvis [CT abd pelvis wo con] Stat 05/04/24 18:13 CT head/brain wo con Urgent 05/05/24 11:00 FL video swallow Routine 05/06/24 07:36 CT chest diagnostic wo con Routine Pending Results Patient Have Any Pending Studies at Discharge: No Discharge Instructions Given to Patient (Per Discharging Provider) You were admitted for pneumonia and also noted concerns for possible stomach bleed. You started to improve on IV antibiotics and completed a 7 day course You were seen by Cardiology for abnormal heart rates and started on the following: -Start Metoprolol 75mg two times a day Total Time Total Time Spent Total Time Spent (In Minutes): 35
[2024-05-10 13:04] VITALS: BP 115/70; PULSE 62
== END 2024-05-10 13:32 | DRG 871 ==
LOC: ED 20:18 → SUATTDRO 05-03 01:56 → EDINP 05-03 01:56 → 2S 05-03 15:47